=== PATIENT | male | born 1940 | race Caucasian/White ===

== ENCOUNTER 2016-05-07 17:00 | Inpatient (IN) | payer OTHER ==
[~2016-05-07] VITALS: Ht 193 cm; Wt 85.2 kg
[~2016-05-07 17:00] MED LIST: ASPI325T45 PO; LEVO75TA5 PO; LNX25 PO; WARF-246 PO
[2016-05-07] MEDS ORDERED: SODIUM CHLORIDE 0.9% 1000ML 1,000 ML IV SCH (17:16)
[2016-05-07 17:29] LABS: BASO % 0.7 %; BASO ABS # 0.03 K/uL (0-0.2); COMPLETE YES; EOS % 2.6 %; HEMATOCRIT 39.6 % (42-52); IG% 0.2 %; LYMPH % 38.1 %; LYMPH ABS # 1.64 K/uL (1.2-3.4); MEAN CELL VOLUME 92.1 fL (80-100); MEAN CORPUSCULAR HEMOGLOBIN 32.1 pg (25-34); MEAN CORPUSCULAR HGB CONC 34.8 g/dl (32-36); MEAN PLATELET VOLUME 9.3 fL (7.4-10.4); MONO % 10.2 %; NEUT % 48.2 %; PLATELET COUNT 195 K/uL (130-400); WHITE BLOOD COUNT 4.31 K/uL (4.8-10.8)
--- NOTE | 2016-05-07 17:34 | EMERGENCY ROOM VISIT NOTE ---
History Report prepared by Gerhard: Maria C Gabriel Under the Supervision of: Dr. Hayden Whitley M.D. First contact with patient: 17:16 Chief Complaint: NEURO SYMPTOMS Stated Complaint: DIFFICULTY TAKING/MAKING SENSE- HX TIA, AFIB History of Present Illness The patient is a 75 year old male who presents to the Emergency Room with complaints of constant neurological symptoms beginning a half an hour ago. The patient states that he was having trouble making sense of words. His reports that it was difficult for him to form sentences and he was having a hard time speaking. Per nursing staff the patient has a history of A-fib and is on Coumadin. The patient reports that he feels as though he is getting better. He complains of a left sided headache that began a half an hour ago and confusion. The patient notes that he is under a lot of stress and is not sure if that has contributed to this today. He reports a history of TIA's and experienced similar symptoms to today. Source of History: patient Onset: 30 minutes ago Position: other (global) Quality: other (confusion) Timing: constant Associated Symptoms: + headache Note: Notes trouble forming sentences. Review of Systems See HPI for pertinent positives & negatives. A total of 10 systems reviewed and were otherwise negative. Past Medical & Surgical Medical Problems: (1) Atrial fibrillation (2) BPH (3) Hiatal hernia (4) Hypothyroidism Surgical Problems: (1) History of bilateral knee replacement Family History Hypertension Social History Smoking Status: Never Smoker Alcohol Use: occasionally Marital Status: Occupation Status: retired Current/Historical Medications Scheduled Aspirin (Aspirin), 1 DOSE PO UD Digoxin (Digoxin), 0.25 MG PO HS Levothyroxine Sodium (Levothyroxine Sodium), 75 MCG PO QAM Warfarin Sod (Jantoven), 5 MG PO DIRECTED Warfarin Sodium (Warfarin Sodium), 10 MG PO DAILY Allergies Coded Allergies: No Known Allergies (Unverified , 05/07/16) Physical Exam Vital Signs Date Time Temp Pulse Resp B/P Pulse Ox O2 Delivery O2 Flow Rate FiO2 05/07/16 20:03 73 16 177/113 97 Room Air 05/07/16 18:13 71 16 187/117 97 Room Air 05/07/16 17:28 Room Air 05/07/16 17:04 36.6 78 20 196/104 98 Room Air Physical Exam GENERAL: Patient is a healthy-appearing well-nourished HEAD: Normocephalic atraumatic EYES: Ocular movements intact pupils equal and react to light OROPHARYNX mucous membranes are moist no exudates present no erythema or edema present NECK: Supple no nuchal rigidity CHEST: Good equal expansion LUNGS: Clear and equal to auscultation CARDIAC: Normal S1 and S2 ABDOMEN: Soft nontender no guarding BACK: No CVA tenderness EXTREMITIES: No pain upon palpation normal muscle strength in all groups no clubbing cyanosis or edema NEURO: Patient is following commands is answering questions appropriately. Alert and oriented x3 Cranial Nerves 2-12 grossly intact Medical Decision & Procedures ER Provider Diagnostic Interpretation: Radiology results as stated below per my review and radiologist interpretation: CT HEAD WITHOUT CONTRAST (CT) FINDINGS: No intra or extra-axial mass lesions are visualized. There is no CT evidence of acute cortical infarction. There is no evidence of midline shift. There is no acute hemorrhage. No calvarial fractures are visualized. There are patchy white matter hypodensities likely on a small vessel basis. There is no evidence of pathologic ventricular dilatation. There is no evidence of acute sinusitis IMPRESSION: No acute intracranial findings Electronically signed by: Arnav Arevalo M.D. 05/07/2016 5:42 PM Dictated Date/Time: 05/07/2016 5:40 PM CHEST ONE VIEW PORTABLE FINDINGS: The heart is borderline enlarged. There is no failure. There is no focal pulmonary consolidation. There are no pleural effusions.[ IMPRESSION: No active disease in the chest. Electronically signed by: Arnav Arevalo M.D. 05/07/2016 5:58 PM Dictated Date/Time: 05/07/2016 5:57 PM Laboratory Results 05/07/16 17:20 Red Blood Count 4.30, Mean Corpuscular Volume 92.1, Mean Corpuscular Hemoglobin 32.1, Mean Corpuscular Hemoglobin Concent 34.8, Mean Platelet Volume 9.3, Neutrophils (%) (Auto) 48.2, Lymphocytes (%) (Auto) 38.1, Monocytes (%) (Auto) 10.2, Eosinophils (%) (Auto) 2.6, Basophils (%) (Auto) 0.7, Neutrophils # (Auto ) 2.08, Lymphocytes # (Auto) 1.64, Monocytes # (Auto) 0.44, Eosinophils # (Auto ) 0.11, Basophils # (Auto) 0.03 05/07/16 17:20 Test 05/07/16 17:20 05/07/16 17:27 05/07/16 17:29 05/07/16 18:15 White Blood Count 4.31 K/uL (4.8-10.8) Red Blood Count 4.30 M/uL (4.7-6.1) Hemoglobin 13.8 g/dL (14.0-18.0) Hematocrit 39.6 % (42-52) Mean Corpuscular Volume 92.1 fL (80-100) Mean Corpuscular Hemoglobin 32.1 pg (25-34) Mean Corpuscular Hemoglobin Concent 34.8 g/dl (32-36) Platelet Count 195 K/uL (130-400) Mean Platelet Volume 9.3 fL (7.4-10.4) Neutrophils (%) (Auto) 48.2 % Lymphocytes (%) (Auto) 38.1 % Monocytes (%) (Auto) 10.2 % Eosinophils (%) (Auto) 2.6 % Basophils (%) (Auto) 0.7 % Neutrophils # (Auto) 2.08 K/uL (1.4-6.5) Lymphocytes # (Auto) 1.64 K/uL (1.2-3.4) Monocytes # (Auto) 0.44 K/uL (0.11-0.59) Eosinophils # (Auto) 0.11 K/uL (0-0.5) Basophils # (Auto) 0.03 K/uL (0-0.2) RDW Standard Deviation 43.2 fL (36.4-46.3) RDW Coefficient of Variation 12.9 % (11.5-14.5) Immature Granulocyte % (Auto) 0.2 % Immature Granulocyte # (Auto) 0.01 K/uL (0.00-0.02) Prothrombin Time 13.7 SECONDS (9.0-12.0) Prothromb Time International Ratio 1.3 (0.9-1.1) Activated Partial Thromboplast Time 29.0 SECONDS (21.0-31.0) Partial Thromboplastin Ratio 1.1 Anion Gap 3.0 mmol/L (3-11) Est Creatinine Clear Calc Drug Dose 59.3 ml/min Estimated GFR () 61.4 Estimated GFR (Non- 53.0 BUN/Creatinine Ratio 11.9 (10-20) Calcium Level 8.6 mg/dl (8.5-10.1) Total Creatine Kinase 284 U/L (39-308) Creatine Kinase MB 2.3 ng/ml (0.5-3.6) Creatine Kinase MB Ratio 0.8 (0-3.0) Troponin I < 0.015 ng/ml (0-0.045) Digoxin Level 0.4 ng/ml (0.8-2.0) Bedside Glucose 117 mg/dl (70-99) Bedside Prothrombin Time INR 1.4 (0.9-1.1) Urine Color YELLOW Urine Appearance CLEAR (CLEAR) Urine pH 7.0 (4.5-7.5) Urine Specific [place] 1.006 (1.000-1.030) Urine Protein NEG (NEG) Urine Glucose (UA) NEG (NEG) Urine Ketones NEG (NEG) Urine Occult Blood NEG (NEG) Urine Nitrite NEG (NEG) Urine Bilirubin NEG (NEG) Urine Urobilinogen NEG (NEG) Urine Leukocyte Esterase NEG (NEG) Urine Opiates Screen NEG (NEG) Urine Methadone, Qualitative NEG (NEG) Urine Barbiturates NEG (NEG) Urine Phencyclidine (PCP) Level NEG (NEG) Ur Amphetamine/Methamphetamine NEG (NEG) MDMA (Ecstasy) Screen NEG (NEG) Urine Benzodiazepines Screen NEG (NEG) Urine Cocaine Metabolite NEG (NEG) Urine Marijuana (THC) NEG (NEG) Labs reviewed by ED physician. Medications Administered Medications (Trade) Dose Ordered Sig/Jimmy Route Start Time Stop Time Status Last Admin Dose Admin Sodium Chloride (Nss 1000ml) 1,000 ml @ 50 mls/hr Q20H IV 05/07/16 17:16 05/07/16 21:20 DC 05/07/16 18:15 50 MLS/HR ECG Indication: altered mental status Rate (beats per minute): 76 Rhythm: atrial fibrillation Findings: nonspecific-ST abn (Anterior), no acute ischemic change ED Course 1715: Past medical records reviewed. The patient was evaluated in room A2. A complete history and physical examination was performed. 6: Sodium Chloride 1000 ml @ 50 mls/hr IV. 1906: I discussed the patient's case with Dr. Gonzalez, he has agreed to evaluate the patient for further management and care. 1918: Upon reexamination the patient is hemodynamically stable. I discussed results and treatment plan with the patient. He verbalizes agreement and understanding. I spoke with Dr. Gonzalez from the [facility] Hospitalist Service. The patient will be evaluated for further management. Medical Decision Differential diagnosis: Etiologies such as metabolic, infection, hypo/hyperglycemia, electrolyte abnormalities, cardiac sources, intracerebral event, toxicologic, neurologic, as well as others were entertained. This is a 75-year-old male who presents emergency department complaining of TIA like symptoms. The symptoms began approximately 3 hours ago however upon arrival to the emergency department the patient is now symptom-free. His INR is subtherapeutic at 1.3. CAT scan of the head is normal he has a normal CBC normal renal profile. I did discuss case with the hospitalist service who agreed to admit the patient. Patient was in agreement with the treatment plan. Consults Time Called: 1849 Consulting Physician: Dr. Gonzalez - Kostas Returned Call: 1906 I discussed the patient's case with Dr. Gonzalez, he has agreed to evaluate the patient for further management and care. Impression Primary Impression: TIA (transient ischemic attack) Scribe Attestation The scribe's documentation has been prepared under my direction and personally reviewed by me in its entirety. I confirm that the note above accurately reflects all work, treatment, procedures, and medical decision making performed by me. Departure Information Dispostion Being Evaluated By Hospitalist Referrals Vinnie Chand D.O. (PCP) Patient Instructions [facility] Stroke History Time Last Known Well 1500 Stroke t-PA Criteria Reviewed Does NOT meet criteria for t-PA Reason t-PA Not Given Treatment not indicated Strict Exclusion Criteria novel oral anticoagulant use (within last 2 days), Complete resolution of symptoms (NI, Normal neurologic examination Extended Window (3-4.5 hour) Any anticoagulant use Problem Qualifiers Primary Impression: TIA (transient ischemic attack) Transient cerebral ischemia type: unspecified Qualified Codes: G45.9 - Transient cerebral ischemic attack, unspecified
[2016-05-07 17:38] LABS: INR 1.3 (0.9-1.1); PARTIAL THROMBOPLASTIN RATIO 1.1; PROTHROMBIN TIME (PATIENT) 13.7 SECONDS (9.0-12.0)
--- NOTE | 2016-05-07 17:43 | DIAGNOSTIC IMAGING REPORT ---
CT HEAD WITHOUT CONTRAST (CT) CLINICAL HISTORY: Stroke RESECTED AND EXPRESSIVE APHASIA COMPARISON STUDY: 05/10/2013 TECHNIQUE: Axial CT of the brain is performed from the vertex to the skull base. IV contrast was not administered for this examination. CT DOSE: 614.27 mGy.cm FINDINGS: No intra or extra-axial mass lesions are visualized. There is no CT evidence of acute cortical infarction. There is no evidence of midline shift. There is no acute hemorrhage. No calvarial fractures are visualized. There are patchy white matter hypodensities likely on a small vessel basis. There is no evidence of pathologic ventricular dilatation. There is no evidence of acute sinusitis IMPRESSION: No acute intracranial findings Electronically signed by: Arnav Arevalo M.D. 05/07/2016 5:42 PM Dictated Date/Time: 05/07/2016 5:40 PM
[2016-05-07 17:54] LABS: BLOOD UREA NITROGEN 15 mg/dl (7-18); BUN/CREATININE RATIO 11.9 (10-20); CALCIUM 8.6 mg/dl (8.5-10.1); CARBON DIOXIDE 32 mmol/L (21-32); CHLORIDE 104 mmol/L (98-107); GLUCOSE 99 mg/dl (70-99); POTASSIUM 3.6 mmol/L (3.5-5.1); SODIUM 139 mmol/L (136-145)
[2016-05-07 17:59] LABS: CKMB/CK RATIO 0.8 (0-3.0)
--- NOTE | 2016-05-07 17:59 | DIAGNOSTIC IMAGING REPORT ---
CHEST ONE VIEW PORTABLE CLINICAL HISTORY: Stroke CONFUSION COMPARISON STUDY: 05/10/2013 FINDINGS: The heart is borderline enlarged. There is no failure. There is no focal pulmonary consolidation. There are no pleural effusions.[ IMPRESSION: No active disease in the chest. Electronically signed by: Arnav Arevalo M.D. 05/07/2016 5:58 PM Dictated Date/Time: 05/07/2016 5:57 PM
[2016-05-07] MEDS ORDERED: WARF5TAB7 PO (18:09)
[2016-05-07 18:28] LABS: URINE APPEARANCE CLEAR (CLEAR); URINE BILIRUBIN NEG (NEG); URINE COLOR YELLOW; URINE NITRITE NEG (NEG); URINE SPECIFIC GRAVITY 1.006 (1.000-1.030); UROBILINOGEN NEG (NEG); ZZUR CULT IF INDIC CLEAN CATCH NO
[2016-05-07 18:29] LABS: MANUAL MICROSCOPIC REQUIRED? NO; REVIEW REQ? NO
[2016-05-07 18:58] LABS: BENZODIAZEPINE, URINE NEG (NEG); COCAINE,URINE NEG (NEG); PHENCYCLIDINE, URINE NEG (NEG)
[2016-05-07] MEDS ORDERED: PHARMACIST DISCHARGE MED REC CONSULT PRN (20:45)
[2016-05-07] MEDS ORDERED: ACETAMINOPHEN 325 MG TAB PO PRN (20:45)
[2016-05-07] MEDS ORDERED: ONDANSETRON INJ 2 MG/ML 2 ML VIAL IV PRN (20:45)
[2016-05-07] MEDS ORDERED: DIGOXIN 0.25 MG TAB PO SCH (21:00)
--- NOTE | 2016-05-07 21:01 | History and Physical ---
History & Physical Date & Time of Service: May 07, 2016 at 21:00 Chief Complaint: Difficulty Taking/Making Sense- Hx Tia, Afib Primary Care Physician: Vinnie Chand D.OJonathan History of Present Illness Source: patient Past Medical/Surgical History Medical Problems: (1) Atrial fibrillation Status: Chronic (2) BPH Status: Chronic (3) Hiatal hernia Status: Chronic (4) Hypothyroidism Status: Chronic Surgical Problems: (1) History of bilateral knee replacement Status: Chronic Family History Hypertension Social History Smoking Status: Never Smoker Marital Status: Occupational Status: retired Immunizations History of Influenza Vaccine: N/A History of Tetanus Vaccine?: Unknown History of Pneumococcal: No History of Hepatitis B Vaccine: No Multi-Drug Resistant Organisms History of MDRO: No Allergies Coded Allergies: No Known Allergies (Unverified , 05/07/16) Home Medications Scheduled Aspirin (Aspirin), 1 DOSE PO UD Digoxin (Digoxin), 0.25 MG PO HS Levothyroxine Sodium (Levothyroxine Sodium), 75 MCG PO QAM Warfarin Sod (Jantoven), 5 MG PO DIRECTED Warfarin Sodium (Warfarin Sodium), 10 MG PO DAILY Physical Exam Vital Signs Date Time Temp Pulse Resp B/P Pulse Ox O2 Delivery O2 Flow Rate FiO2 05/07/16 20:03 73 16 177/113 97 Room Air 05/07/16 18:13 71 16 187/117 97 Room Air 05/07/16 17:28 Room Air 05/07/16 17:04 36.6 78 20 196/104 98 Room Air Diagnostics Laboratory Results Results Past 24 Hours Test 05/07/16 17:20 05/07/16 17:27 05/07/16 17:29 05/07/16 18:15 Range/Units White Blood Count 4.31 4.8-10.8 K/uL Red Blood Count 4.30 4.7-6.1 M/uL Hemoglobin 13.8 14.0-18.0 g/dL Hematocrit 39.6 42-52 % Mean Corpuscular Volume 92.1 80-100 fL Mean Corpuscular Hemoglobin 32.1 25-34 pg Mean Corpuscular Hemoglobin Concent 34.8 32-36 g/dl Platelet Count 195 130-400 K/uL Mean Platelet Volume 9.3 7.4-10.4 fL Neutrophils (%) (Auto) 48.2 % Lymphocytes (%) (Auto) 38.1 % Monocytes (%) (Auto) 10.2 % Eosinophils (%) (Auto) 2.6 % Basophils (%) (Auto) 0.7 % Neutrophils # (Auto) 2.08 1.4-6.5 K/uL Lymphocytes # (Auto) 1.64 1.2-3.4 K/uL Monocytes # (Auto) 0.44 0.11-0.59 K/uL Eosinophils # (Auto) 0.11 0-0.5 K/uL Basophils # (Auto) 0.03 0-0.2 K/uL RDW Standard Deviation 43.2 36.4-46.3 fL RDW Coefficient of Variation 12.9 11.5-14.5 % Immature Granulocyte % (Auto) 0.2 % Immature Granulocyte # (Auto) 0.01 0.00-0.02 K/uL Prothrombin Time 13.7 9.0-12.0 SECONDS Prothromb Time International Ratio 1.3 0.9-1.1 Activated Partial Thromboplast Time 29.0 21.0-31.0 SECONDS Partial Thromboplastin Ratio 1.1 Sodium Level 139 136-145 mmol/L Potassium Level 3.6 3.5-5.1 mmol/L Chloride Level 104 98-107 mmol/L Carbon Dioxide Level 32 21-32 mmol/L Anion Gap 3.0 3-11 mmol/L Blood Urea Nitrogen 15 7-18 mg/dl Creatinine 1.30 0.60-1.40 mg/dl Est Creatinine Clear Calc Drug Dose 59.3 ml/min Estimated GFR () 61.4 Estimated GFR (Non- 53.0 BUN/Creatinine Ratio 11.9 10-20 Random Glucose 99 70-99 mg/dl Calcium Level 8.6 8.5-10.1 mg/dl Total Creatine Kinase 284 39-308 U/L Creatine Kinase MB 2.3 0.5-3.6 ng/ml Creatine Kinase MB Ratio 0.8 0-3.0 Troponin I < 0.015 0-0.045 ng/ml Digoxin Level 0.4 0.8-2.0 ng/ml Bedside Glucose 117 70-99 mg/dl Bedside Prothrombin Time INR 1.4 0.9-1.1 Urine Color YELLOW Urine Appearance CLEAR CLEAR Urine pH 7.0 4.5-7.5 Urine Specific [place] 1.006 1.000-1.030 Urine Protein NEG NEG Urine Glucose (UA) NEG NEG Urine Ketones NEG NEG Urine Occult Blood NEG NEG Urine Nitrite NEG NEG Urine Bilirubin NEG NEG Urine Urobilinogen NEG NEG Urine Leukocyte Esterase NEG NEG Urine Opiates Screen NEG NEG Urine Methadone, Qualitative NEG NEG Urine Barbiturates NEG NEG Urine Phencyclidine (PCP) Level NEG NEG Ur Amphetamine/Methamphetamine NEG NEG MDMA (Ecstasy) Screen NEG NEG Urine Benzodiazepines Screen NEG NEG Urine Cocaine Metabolite NEG NEG Urine Marijuana (THC) NEG NEG Impression VTE Prophylaxis VTE Risk Assessment Done? Y/N: Yes Risk Level: Moderate
[2016-05-07] MEDS ORDERED: ASPIRIN 81 MG ECTAB PO STA ×2 (21:08→21:16)
--- NOTE | 2016-05-07 21:19 | History and Physical ---
History & Physical Date & Time of Service: May 07, 2016 at 21:02 Chief Complaint: Difficulty Taking/Making Sense- Hx Tia, Afib Primary Care Physician: Vinnie Chand D.OJonathan History of Present Illness Source: patient, clinic records, hospital records 75 year old male with history of Atrial Fibrillation on Coumadin, TIAs, presenting with episodes of aphasia. Follows with Dr. Chand for Primary Care Physician. Patient was in his usual state of health until around 3pm, while having lunch, patient noted that he was having difficulty understanding his emails. He managed to drive to his significant other and she noticed that the patient was having difficulty forming words and to some degree, understanding. After about 30 minutes, the symptoms resolved spontaneously. Towards the evening, the patient was in a [employer] store when he again experienced the same symptoms. He managed to call his significant other again who picked him up and brought him to the ER. By the time they arrrived at the ER, symptoms have resolved. Patient reports left sided headache this afternoon as well. At the ER, patient received hypertensive with systolic bp 190s. CT head: no acute process EKG: A fib , rate controlled INR 1.3 On exam, patient was alert, pleasant, oriented x 3. States he feels back to baseline, significant other agrees he is back to baseline. Denies any focal neuro symptoms, chest pain, dyspnea, dizziness, nausea. No other symptoms. Past Medical/Surgical History Medical Problems: (1) Atrial fibrillation Status: Chronic (2) BPH Status: Chronic (3) Hiatal hernia Status: Chronic (4) Hypothyroidism Status: Chronic Surgical Problems: (1) History of bilateral knee replacement Status: Chronic Family History Hypertension Social History Smoking Status: Never Smoker Smokeless Tobacco Use: No Alcohol Use: socially Drug Use: none Marital Status: Occupational Status: retired Immunizations History of Influenza Vaccine: N/A History of Tetanus Vaccine?: Unknown History of Pneumococcal: No History of Hepatitis B Vaccine: No Multi-Drug Resistant Organisms History of MDRO: No Allergies Coded Allergies: No Known Allergies (Unverified , 05/07/16) Home Medications Scheduled Aspirin (Aspirin), 1 DOSE PO UD Digoxin (Digoxin), 0.25 MG PO HS Levothyroxine Sodium (Levothyroxine Sodium), 75 MCG PO QAM Warfarin Sod (Jantoven), 5 MG PO DIRECTED Warfarin Sodium (Warfarin Sodium), 10 MG PO DAILY Review of Systems Constitutional- no fever; no weight loss Eyes- no acute visual changes ENT- no sinus drainage; no pharyngitis Pulmonary- no cough, no wheezing, no shortness of breath Cardiac- no chest pain, no palpitations, no orthopnea, no dependent edema GI- no nausea, no vomiting, no diarrhea, no melena, no hematochezia - no dysuria, no hematuria Musculoskeletal- no arthralgias, no myalgias Derm- no rashes, no new skin lesions, no changing skin lesions Hematologic- no unusual bruising, no unusual bleeding Lymphatics- no adenopathy Endocrine- no polyuria or polydipsia; no heat or cold intolerance Neuro- (+) as noted above Psych- no anxiety, no depression Physical Exam Vital Signs Date Time Temp Pulse Resp B/P Pulse Ox O2 Delivery O2 Flow Rate FiO2 05/07/16 20:03 73 16 177/113 97 Room Air 05/07/16 18:13 71 16 187/117 97 Room Air 05/07/16 17:28 Room Air 05/07/16 17:04 36.6 78 20 196/104 98 Room Air General Appearance: WD/WN, no apparent distress Head: normocephalic, atraumatic Eyes: normal inspection, PERRL, EOMI, sclerae normal ENT: normal ENT inspection, hearing grossly normal, pharynx normal Neck: supple, no adenopathy, thyroid normal, no JVD Respiratory/Chest: chest non-tender, lungs clear, normal breath sounds, no respiratory distress, no accessory muscle use Cardiovascular: regular rate, rhythm, no edema, no JVD, no murmur Abdomen/GI: normal bowel sounds, non tender, soft, no organomegaly Back: normal inspection, no CVA tenderness Extremities/Musculoskelatal: normal inspection, no calf tenderness, no pedal edema, normal range of motion Neurologic/Psych: financial services specialist II-XII nml as tested, no motor/sensory deficits, alert, normal mood/affect, normal reflexes, oriented x 3 Skin: normal color, warm/dry, no rash Lymphatic: no adenopathy Diagnostics Laboratory Results Results Past 24 Hours Test 05/07/16 17:20 05/07/16 17:27 05/07/16 17:29 05/07/16 18:15 Range/Units White Blood Count 4.31 4.8-10.8 K/uL Red Blood Count 4.30 4.7-6.1 M/uL Hemoglobin 13.8 14.0-18.0 g/dL Hematocrit 39.6 42-52 % Mean Corpuscular Volume 92.1 80-100 fL Mean Corpuscular Hemoglobin 32.1 25-34 pg Mean Corpuscular Hemoglobin Concent 34.8 32-36 g/dl Platelet Count 195 130-400 K/uL Mean Platelet Volume 9.3 7.4-10.4 fL Neutrophils (%) (Auto) 48.2 % Lymphocytes (%) (Auto) 38.1 % Monocytes (%) (Auto) 10.2 % Eosinophils (%) (Auto) 2.6 % Basophils (%) (Auto) 0.7 % Neutrophils # (Auto) 2.08 1.4-6.5 K/uL Lymphocytes # (Auto) 1.64 1.2-3.4 K/uL Monocytes # (Auto) 0.44 0.11-0.59 K/uL Eosinophils # (Auto) 0.11 0-0.5 K/uL Basophils # (Auto) 0.03 0-0.2 K/uL RDW Standard Deviation 43.2 36.4-46.3 fL RDW Coefficient of Variation 12.9 11.5-14.5 % Immature Granulocyte % (Auto) 0.2 % Immature Granulocyte # (Auto) 0.01 0.00-0.02 K/uL Prothrombin Time 13.7 9.0-12.0 SECONDS Prothromb Time International Ratio 1.3 0.9-1.1 Activated Partial Thromboplast Time 29.0 21.0-31.0 SECONDS Partial Thromboplastin Ratio 1.1 Sodium Level 139 136-145 mmol/L Potassium Level 3.6 3.5-5.1 mmol/L Chloride Level 104 98-107 mmol/L Carbon Dioxide Level 32 21-32 mmol/L Anion Gap 3.0 3-11 mmol/L Blood Urea Nitrogen 15 7-18 mg/dl Creatinine 1.30 0.60-1.40 mg/dl Est Creatinine Clear Calc Drug Dose 59.3 ml/min Estimated GFR () 61.4 Estimated GFR (Non- 53.0 BUN/Creatinine Ratio 11.9 10-20 Random Glucose 99 70-99 mg/dl Calcium Level 8.6 8.5-10.1 mg/dl Total Creatine Kinase 284 39-308 U/L Creatine Kinase MB 2.3 0.5-3.6 ng/ml Creatine Kinase MB Ratio 0.8 0-3.0 Troponin I < 0.015 0-0.045 ng/ml Digoxin Level 0.4 0.8-2.0 ng/ml Bedside Glucose 117 70-99 mg/dl Bedside Prothrombin Time INR 1.4 0.9-1.1 Urine Color YELLOW Urine Appearance CLEAR CLEAR Urine pH 7.0 4.5-7.5 Urine Specific [place] 1.006 1.000-1.030 Urine Protein NEG NEG Urine Glucose (UA) NEG NEG Urine Ketones NEG NEG Urine Occult Blood NEG NEG Urine Nitrite NEG NEG Urine Bilirubin NEG NEG Urine Urobilinogen NEG NEG Urine Leukocyte Esterase NEG NEG Urine Opiates Screen NEG NEG Urine Methadone, Qualitative NEG NEG Urine Barbiturates NEG NEG Urine Phencyclidine (PCP) Level NEG NEG Ur Amphetamine/Methamphetamine NEG NEG MDMA (Ecstasy) Screen NEG NEG Urine Benzodiazepines Screen NEG NEG Urine Cocaine Metabolite NEG NEG Urine Marijuana (THC) NEG NEG Diagnostic Radiology CT HEAD WITHOUT CONTRAST (CT) CLINICAL HISTORY: Stroke RESECTED AND EXPRESSIVE APHASIA COMPARISON STUDY: 05/10/2013 TECHNIQUE: Axial CT of the brain is performed from the vertex to the skull base. IV contrast was not administered for this examination. CT DOSE: 614.27 mGy.cm FINDINGS: No intra or extra-axial mass lesions are visualized. There is no CT evidence of acute cortical infarction. There is no evidence of midline shift. There is no acute hemorrhage. No calvarial fractures are visualized. There are patchy white matter hypodensities likely on a small vessel basis. There is no evidence of pathologic ventricular dilatation. There is no evidence of acute sinusitis IMPRESSION: No acute intracranial findings EKG a fib rate controlled Impression Assessment and Plan 75 year old male with history of Atrial Fibrillation on Coumadin, TIAs, presenting with episodes of aphasia today. POSSIBLE TIA R/O ACUTE CVA - chronic a fib on coumadin INR1.3 today - symptoms have resolved CT head: negative - Brain MRI CT angio Head and Neck Echo - increase Aspirin to 162mg daily for now patient took total of 10mg Coumadin today - check INR tomorrow usually takes coumadin 5mg tues and fri, 10mg other days may need statin on discharge - discussed above plan with Dr. Huntley HYPERTENSIVE URGENCY - maintain bp on the higher side for now - Clonidine PRN for systolic bp > 180 CHRONIC A FIB ON COUMADIN HISTORY OF TIA'S - continue Digoxin - management of coumadin per #1 HYPOTHYROIDISM check TSH continue lthyroxine DVT PROPHYLAXIS on coumadin Full code per patient Disposition pending anticipate discharge home when cleared by Neurology VTE Prophylaxis VTE Risk Assessment Done? Y/N: Yes Risk Level: Moderate
[2016-05-07] MEDS ORDERED: ASPIRIN 81 MG ECTAB PO ONE (21:28)
[2016-05-07] MEDS ORDERED: CLONIDINE HCL 0.1 MG TAB PO PRN (21:30)
[2016-05-07] MEDS ORDERED: OPTIRAY 320 IV PRN (21:45)
--- NOTE | 2016-05-07 21:49 | DIAGNOSTIC IMAGING REPORT ---
CT NECK ANGIO WITH CONTRAST CLINICAL HISTORY: A fascia. Suspected stroke. COMPARISON STUDY: Carotid Doppler ultrasound dated 05/11/2013 TECHNIQUE: CT angiography was performed from the aortic arch to the skull base. MIP imaging was performed. The patient was scanned in a dynamic helical fashion during intravenous administration of 115 cc of Optiray 320. CT DOSE: 585.52 mGy.cm Technique: CT angiogram of the carotid and vertebral arteries was obtained using intravenous contrast and 3-D reconstruction. NASCET criteria was utilized. Findings: There is a 6 mm pleural-based left apical opacity with associated bronchiectatic change. This remain similar to April 2012 and is likely postinflammatory. Biapical pleural-parenchymal scarring is also evident. The right carotid revealed no evidence of aneurysm and no evidence of dissection. There is no evidence of hemodynamic significant stenosis. The left carotid revealed no evidence of hemodynamic significant stenosis. There is no evidence of aneurysm. There is no evidence of dissection. There is no evidence of hemodynamically significant vertebral stenosis. There is no evidence of vertebral dissection. The left vertebral is dominant. IMPRESSION: No evidence of hemodynamically significant carotid or vertebral artery stenosis. No evidence of dissection. Electronically signed by: Arnav Arevalo M.D. 05/07/2016 9:47 PM Dictated Date/Time: 05/07/2016 9:43 PM
--- NOTE | 2016-05-07 21:54 | DIAGNOSTIC IMAGING REPORT ---
CT HEAD ANGIO WITH CONTRAST CLINICAL HISTORY: Aphasia. Suspected stroke TECHNIQUE: CT angiography of the head was performed in a dynamic helical fashion during intravenous administration of 115 cc of Optiray 320. MIP imaging was performed CT DOSE: COMPARISON STUDY: Noncontrast head CT dated 05/07/2016 FINDINGS: There are no lesion suspicious for aneurysm. There are no major intracranial branch occlusions. The dural venous sinuses appear patent. IMPRESSION: Unremarkable CT angiography of the brain Electronically signed by: Arnav Arevalo M.D. 05/07/2016 9:52 PM Dictated Date/Time: 05/07/2016 9:49 PM
--- NOTE | 2016-05-07 22:18 | DIAGNOSTIC IMAGING REPORT ---
MRI OF THE BRAIN WITHOUT CONTRAST CLINICAL HISTORY: Difficulty talking. Atrial fibrillation. TIA. COMPARISON STUDY: Head CT dated 05/07/2016 FINDINGS: Sagittal T1, axial diffusion, proton density and T2 weighted axial, coronal FLAIR, and axial T1-weighted images were acquired. No intra or extra-axial mass lesions are visualized Axial diffusion-weighted images reveal no evidence of acute or subacute infarction. There is no evidence of ventricular dilatation. Proton density T2-weighted and FLAIR images reveal scattered foci of increased T2 signal within the white matter, likely on a small vessel basis. There are no abnormal flow voids. IMPRESSION: 1. No acute intracranial findings 2. No evidence of acute or subacute infarction 3. No evidence of intracranial mass on this noncontrast study Electronically signed by: Arnav Arevalo M.D. 05/07/2016 10:17 PM Dictated Date/Time: 05/07/2016 10:15 PM
[2016-05-07] MEDS: SODIUM CHLORIDE 0.9% 1000ML 1,000 ML IV SCH (22:32)
[2016-05-07 22:36] VITALS: BP 159/63; PULSE 66; TEMP 37.1; O2SAT 96; Ht 193 cm; Wt 85.2 kg
[2016-05-07 23:04] VITALS: BP 158/85; PULSE 64; TEMP 36.3; O2SAT 96
[2016-05-08 03:45] VITALS: BP 126/77; PULSE 69; TEMP 36.4; O2SAT 95
[2016-05-08 04:00] VITALS: O2SAT 95
[2016-05-08] MEDS ORDERED: LEVOTHYROXINE 75 MCG TAB PO SCH (06:00)
[2016-05-08 06:13] LABS: BASO % 0.6 %; BASO ABS # 0.03 K/uL (0-0.2); COMPLETE YES; EOS % 1.9 %; HEMATOCRIT 35.8 % (42-52); LYMPH % 44.6 %; LYMPH ABS # 2.06 K/uL (1.2-3.4); MEAN CORPUSCULAR HEMOGLOBIN 31.9 pg (25-34); MEAN CORPUSCULAR HGB CONC 34.6 g/dl (32-36); MEAN PLATELET VOLUME 10.2 fL (7.4-10.4); MONO % 9.5 %; NEUT % 43.4 %; PLATELET COUNT 190 K/uL (130-400); RED BLOOD COUNT 3.89 M/uL (4.7-6.1); WHITE BLOOD COUNT 4.62 K/uL (4.8-10.8)
[2016-05-08 06:27] LABS: INR 1.3 (0.9-1.1); PROTHROMBIN TIME (PATIENT) 14.2 SECONDS (9.0-12.0)
[2016-05-08 06:55] LABS: BUN/CREATININE RATIO 14.3 (10-20); CALCIUM 8.3 mg/dl (8.5-10.1); CREATININE 0.98 mg/dl (0.60-1.40); POTASSIUM 3.8 mmol/L (3.5-5.1)
[2016-05-08 07:00] VITALS: BP 120/66; PULSE 72; TEMP 36.8; O2SAT 96
[2016-05-08 07:08] LABS: CHOLESTEROL/HDL RATIO 3.8; THYROID STIMULATING HORMONE 3.42 uIu/ml (0.300-4.500)
[2016-05-08 07:26] LABS: ESTIMATED AVERAGE GLUCOSE 114 mg/dl; HA1C FLAG Normal (Normal)
[2016-05-08] MEDS ORDERED: ASPIRIN 81 MG ECTAB PO SCH (09:00)
[2016-05-08] MEDS ORDERED: HEPARIN SOD 5000 UNIT/0.5 ML CARP SQ ONE (09:30)
[2016-05-08 11:37] VITALS: BP 118/69; PULSE 76; TEMP 36.8; O2SAT 95
--- NOTE | 2016-05-08 12:52 | CONSULTATION REPORT ---
DATE OF CONSULTATION: 05/08/[address] Gonzalez. CONSULTING PHYSICIAN: Liat Garcia DO HISTORY OF PRESENT ILLNESS: Landon is 75 years old and is a retired education psychologist, resides in [place] and has longstanding atrial fibrillation which is now chronic, rather than paroxysmal, according to what he tells me. He has been on Coumadin for a number of years and recently his INR fell. He admitted that he had been in [place], [place] for about a month and had not followed up with the Coumadin Clinic. When he returned, his INR was down to 1.3. He was instructed to take some extra Coumadin, did so, but had 2 events of transient speech impediment with dyslexia, occurring first while eating lunch in [place] and the second time about an hour after the first while he was in the [place] post office. The first event cleared in 15 minutes. The second event lasted about the same period of time. There was no headache, no visual disturbances, no numbness, tingling, weakness or much problem with articulation other than the fact that he had trouble finding the words and apparently his speech was slow and deliberate. He brought himself to the Emergency Room, was assessed, Dr. Gonzalez called me about the case. His INR was low at 1.3. He had taken an additional Coumadin 5 mg tablet, thinking that he needed to do so, but did not take any extra aspirin. I suggested Dr. Gonzalez get an MRI of the brain to make sure he has not had an acute infarct or series of embolic events that were subclinical and also suggested a CTA of the cervical vessels and the intracranial vessels to be sure we were not dealing with an unrelated focal intracranial stenosis or carotid artery stenosis/occlusion. These tests have subsequently been negative. The patient is back to baseline. He would like to go home, but unfortunately his INR as of 4 this morning was still down at 1.3 and he is at risk for having more events. He was placed on some heparin, but is not on it chronically at this point and his aspirin dose was doubled for a period of time, but now is going to be back to his baseline. Other problems include BPH, hiatal hernia, hypothyroidism and bilateral knee replacements for degenerative arthritis. He also may have some modest hypertension, although there is no medication on board to treat this. FAMILY HISTORY: Reveals some hypertension. SOCIAL HISTORY: Reveals him to be a never smoker. He does drink alcohol socially. He is . He has a significant other with whom he visits. MEDICATIONS AT HOME: Include 81 mg aspirin, digoxin, levothyroxine, warfarin per the Coumadin Clinic. ALLERGIES: He has no allergies. REVIEW OF SYSTEMS: Reveals no constitutional symptoms. No new issues referable to head, eyes, ears, nose and throat, cardiovascular, pulmonary, gastrointestinal, genitourinary, and musculoskeletal systems. Neurologically, his only past history reveals a prior TIA like event about 3 years ago, at which point the aspirin was added to his Coumadin. His scheduler is Dr. Galarza. PHYSICAL EXAMINATION: VITAL SIGNS: His blood pressure 177/113. His pulse was 73, respirations were 16. GENERAL: He was well developed, well nourished, did not appear to be in any acute distress. HEENT: Examination was normal. LUNGS: Clear. HEART: Had an irregularly irregular rhythm. ABDOMEN: Soft and nontender. There is no organomegaly. EXTREMITIES: There is no peripheral edema. NEUROLOGIC: Today neurologically, he is awake, alert, oriented in 3 spheres with very clear speech. No problems with reading. No problems with speech, comprehension or output. There are no neologisms or paraphasias. Eye movements are full. Visual cramer are full. Facial motility and strength is normal. Facial sensation is normal. Tongue protrudes in the midline. There is no articulatory disturbance. I did not test gait, but he has normal rapid repetitive motor motions. No drift or pronation sign. No tremors, tics or choreiform activity is seen. Facility of rapid repetitive motions is normal. Reflexes are 1+ symmetrical. Toes are downgoing. No David signs are seen. Strength testing is normal. Sensation is intact to all primary modalities. At this point, I think he should be kept in the hospital until his INR gets closer to the goal, but the decision is going to have to remain with him. He apparently has a son coming back from [place] with a 10-year-old grandchild who he has not seen in a long time and he would prefer to be able to visit with him in his home before the son departs in 24 hours. 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 I made my recommendation to the patient that he stay but again if he decides to leave, he fully comprehends the potential consequences. Right now, his blood pressure does not seem to be an issue as his latest recordings show him to be running about 126/77 and 118/69. I will let the decision about discharge up to his hospitalist but from neurologic point of view, we see no evidence for completed event. He has clearly had transient ischemic events and the management plan is in place. RANDALL
[2016-05-08] MEDS: SODIUM CHLORIDE 0.9% 1000ML 1,000 ML IV SCH (13:16)
[2016-05-08] MEDS ORDERED: WARFARIN SOD 5 MG TAB PO ONE (13:30)
--- NOTE | 2016-05-08 13:31 | Progress Note ---
Subjective Date of Service: May 08, 2016. Subjective Pt evaluation today including: conversation w/ patient, physical exam, lab review, review of studies, review of inpatient medication list Saw/examined the patient in room 211 He states he's had no symptoms since arriving Feels fine and no complaints Problem List Medical Problems: (1) TIA (transient ischemic attack) Status: Acute Review of Systems Constitutional: No chills, No fever, No weakness Respiratory: No shortness of breath Cardiac: No chest pain Neurologic: No balance problems, No numbness/tingling, No paralysis, No vertigo , No weakness Medications Current Inpatient Medications Medications (Trade) Dose Ordered Sig/Jimmy Route Start Time Stop Time Status Last Admin Dose Admin Sodium Chloride (Nss 1000ml) 1,000 ml @ 60 mls/hr [id number] IV 05/07/16 20:36 06/06/16 20:35 05/07/16 22:32 60 MLS/HR Acetaminophen (Tylenol Tab) 650 mg Q4H PRN PO 05/07/16 20:45 06/06/16 20:44 Ondansetron HCl (Zofran Inj) 4 mg Q6H PRN IV 05/07/16 20:45 06/06/16 20:44 Miscellaneous Information (Pharmacist Discharge Med Rec Consult) 1 ea UD PRN N/A 05/07/16 20:45 06/06/16 20:44 Digoxin (Lanoxin Tab) 0.25 mg HS PO 05/07/16 21:00 06/06/16 20:59 05/07/16 23:23 0.25 MG Levothyroxine Sodium (Synthroid Tab) 75 mcg DAILYBB PO 05/08/16 06:00 06/07/16 05:59 05/08/16 05:55 75 MCG Aspirin (Ecotrin Tab) 162 mg QAM PO 05/08/16 09:00 06/07/16 08:59 05/08/16 08:16 162 MG Warfarin Sodium (Coumadin Tab) 10 mg DAILY@16 PO 05/08/16 16:00 06/07/16 15:59 Clonidine HCl (Catapres Tab) 0.1 mg Q6H PRN PO 05/07/16 21:30 06/06/16 21:29 Ioversol (Optiray 320) 115 ml UD PRN IV 05/07/16 21:45 05/11/16 21:44 Heparin Sodium (Porcine) (Heparin Sq 5000 Unit/0.5ml) 5,000 unit Q8 SQ 05/08/16 14:00 06/07/16 13:59 Warfarin Sodium (Coumadin Tab) 10 mg NOW ONCE PO 05/08/16 13:15 05/08/16 13:16 UNV Objective Vital Signs Date Time Temp Pulse Resp B/P Pulse Ox O2 Delivery O2 Flow Rate FiO2 05/08/16 04:00 95 Room Air 05/08/16 03:45 36.4 69 17 126/77 95 Room Air 05/07/16 23:23 64 05/07/16 23:04 36.3 64 19 158/85 96 Room Air 05/07/16 22:36 37.1 66 18 159/63 96 Room Air 05/07/16 21:02 85 16 162/103 97 05/07/16 20:03 73 16 177/113 97 Room Air 05/07/16 18:13 71 16 187/117 97 Room Air 05/07/16 17:28 Room Air 05/07/16 17:04 36.6 78 20 196/104 98 Room Air Physical Exam General Appearance: no apparent distress Respiratory/Chest: chest non-tender, lungs clear, normal breath sounds, no respiratory distress, no accessory muscle use Cardiovascular: no edema, no gallop, no JVD, no murmur, + irregularly irregular Extremities: normal inspection, no pedal edema 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, no motor/sensory deficits, alert, normal mood/affect, oriented x 3 Laboratory Results Last 24 Hours Test 05/07/16 17:20 05/07/16 17:27 05/07/16 17:29 05/07/16 18:15 White Blood Count 4.31 K/uL Red Blood Count 4.30 M/uL Hemoglobin 13.8 g/dL Hematocrit 39.6 % Mean Corpuscular Volume 92.1 fL Mean Corpuscular Hemoglobin 32.1 pg Mean Corpuscular Hemoglobin Concent 34.8 g/dl Platelet Count 195 K/uL Mean Platelet Volume 9.3 fL Neutrophils (%) (Auto) 48.2 % Lymphocytes (%) (Auto) 38.1 % Monocytes (%) (Auto) 10.2 % Eosinophils (%) (Auto) 2.6 % Basophils (%) (Auto) 0.7 % Neutrophils # (Auto) 2.08 K/uL Lymphocytes # (Auto) 1.64 K/uL Monocytes # (Auto) 0.44 K/uL Eosinophils # (Auto) 0.11 K/uL Basophils # (Auto) 0.03 K/uL RDW Standard Deviation 43.2 fL RDW Coefficient of Variation 12.9 % Immature Granulocyte % (Auto) 0.2 % Immature Granulocyte # (Auto) 0.01 K/uL Prothrombin Time 13.7 SECONDS Prothromb Time International Ratio 1.3 Activated Partial Thromboplast Time 29.0 SECONDS Partial Thromboplastin Ratio 1.1 Sodium Level 139 mmol/L Potassium Level 3.6 mmol/L Chloride Level 104 mmol/L Carbon Dioxide Level 32 mmol/L Anion Gap 3.0 mmol/L Blood Urea Nitrogen 15 mg/dl Creatinine 1.30 mg/dl Est Creatinine Clear Calc Drug Dose 59.3 ml/min Estimated GFR () 61.4 Estimated GFR (Non- 53.0 BUN/Creatinine Ratio 11.9 Random Glucose 99 mg/dl Calcium Level 8.6 mg/dl Total Creatine Kinase 284 U/L Creatine Kinase MB 2.3 ng/ml Creatine Kinase MB Ratio 0.8 Troponin I < 0.015 ng/ml Digoxin Level 0.4 ng/ml Bedside Glucose 117 mg/dl Bedside Prothrombin Time INR 1.4 Urine Color YELLOW Urine Appearance CLEAR Urine pH 7.0 Urine Specific [place] 1.006 Urine Protein NEG Urine Glucose (UA) NEG Urine Ketones NEG Urine Occult Blood NEG Urine Nitrite NEG Urine Bilirubin NEG Urine Urobilinogen NEG Urine Leukocyte Esterase NEG Urine Opiates Screen NEG Urine Methadone, Qualitative NEG Urine Barbiturates NEG Urine Phencyclidine (PCP) Level NEG Ur Amphetamine/Methamphetamine NEG MDMA (Ecstasy) Screen NEG Urine Benzodiazepines Screen NEG Urine Cocaine Metabolite NEG Urine Marijuana (THC) NEG Test 05/08/16 05:20 White Blood Count 4.62 K/uL Red Blood Count 3.89 M/uL Hemoglobin 12.4 g/dL Hematocrit 35.8 % Mean Corpuscular Volume 92.0 fL Mean Corpuscular Hemoglobin 31.9 pg Mean Corpuscular Hemoglobin Concent 34.6 g/dl Platelet Count 190 K/uL Mean Platelet Volume 10.2 fL Neutrophils (%) (Auto) 43.4 % Lymphocytes (%) (Auto) 44.6 % Monocytes (%) (Auto) 9.5 % Eosinophils (%) (Auto) 1.9 % Basophils (%) (Auto) 0.6 % Neutrophils # (Auto) 2.00 K/uL Lymphocytes # (Auto) 2.06 K/uL Monocytes # (Auto) 0.44 K/uL Eosinophils # (Auto) 0.09 K/uL Basophils # (Auto) 0.03 K/uL RDW Standard Deviation 43.2 fL RDW Coefficient of Variation 12.9 % Immature Granulocyte % (Auto) 0.0 % Immature Granulocyte # (Auto) 0.00 K/uL Prothrombin Time 14.2 SECONDS Prothromb Time International Ratio 1.3 Sodium Level 142 mmol/L Potassium Level 3.8 mmol/L Chloride Level 107 mmol/L Carbon Dioxide Level 29 mmol/L Anion Gap 6.0 mmol/L Blood Urea Nitrogen 14 mg/dl Creatinine 0.98 mg/dl Est Creatinine Clear Calc Drug Dose 77.3 ml/min Estimated GFR () 86.5 Estimated GFR (Non- 74.6 BUN/Creatinine Ratio 14.3 Random Glucose 80 mg/dl Estimated Average Glucose 114 mg/dl Hemoglobin A1c 5.6 % Calcium Level 8.3 mg/dl Triglycerides Level 97 mg/dl Cholesterol Level 165 mg/dl HDL Cholesterol 43 mg/dl LDL Cholesterol, Calculated 103 mg/dl VLDL Cholesterol, Calculated 19 mg/dl Cholesterol/HDL Ratio 3.8 Thyroid Stimulating Hormone (TSH) 3.420 uIu/ml Assessment and Plan This is a 75 year old male with PMH of chronic atrial fibrillation on long-term anticoagulation, hypothyroidism presents with stroke-like symptoms Likely TIA patient presented with stroke like symptoms which have resolved this likely represents a TIA in the setting of atrial fibrillation with subtherapeutic INR Head CT, Brain MRI, CTA head/neck negative for any acute findings Patient was given aspirin 162mg will discuss with patient about starting statin Continue Coumadin appreciate neurology input Chronic Atrial Fibrillation patient is on Coumadin, home dose is 10mg except 5mg on Tuesday & Tuesday INR here was 1.3 repeat INR also 1.3 told patient that it is in his best interest to stay in the hospital until INR is closer to 2-3; with a risk of stroke if he does not He knows the risks involved, but would like to be discharged anyway will have very close outpatient follow-up Given 10mg of Coumadin prior to discharge another 10mg on 05/09 f/u with Coumadin clinic on 05/10 - they will call him Dr. Dean f/u on 05/11 - they will call if they have opening on May 10 DVT ppx subq heparin FULL CODE
[2016-05-08] MEDS ORDERED: CMD5 PO (13:38)
[2016-05-08] MEDS ORDERED: ATOR-54 PO (13:38)
[2016-05-08] MEDS ORDERED: ASPEC81 PO (13:38)
--- NOTE | 2016-05-08 13:42 | Discharge Instructions ---
Discharge Instructions Date of Service May 08, 2016. Admission Reason for Admission: TIA Discharge Discharge Diagnosis / Problem: TIA, A. Fib, subtherapeutic INR Discharge Goals Goal(s): Decrease discomfort, Improve function, Diagnostic testing, Therapeutic intervention Activity Recommendations Activity Limitations: resume your previous activity . Instructions / Follow-Up Instructions / Follow-Up Please follow-up with Dr. Dean on May 11 @ 2:10PM - you will get a call if they can get you in on May 10 Please follow-up with the Coumadin clinic on May 10 - they will call you with an appointment time * You received 10mg of Coumadin on 05/08 already * Take 10mg on Tuesday, 05/09, then follow-up with the Coumadin clinic - you may need to take 10mg daily * Take aspirin 162mg daily * You are started on Lipitor; take 20mg daily * While your INR is below 2, there is a risk of stroke - please return to the ER with any slurring of speech, difficulty speaking, facial droop, one sided weakness or any change in health Current Hospital Diet Patient's current hospital diet: AHA Diet (Heart Healthy) Discharge Diet Recommended Diet: AHA Diet (Heart Healthy) Pending Studies Studies pending at discharge: no Laboratory Results Hemoglobin A1c Test 05/08/16 05:20 Range/Units Estimated Average Glucose 114 mg/dl Hemoglobin A1c 5.6 4.5-5.6 % Lipid Panel Test 05/08/16 05:20 Range/Units Triglycerides Level 97 0-150 mg/dl Cholesterol Level 165 0-200 mg/dl HDL Cholesterol 43 mg/dl Cholesterol/HDL Ratio 3.8 LDL Cholesterol, Calculated 103 mg/dl Medical Emergencies . Who to Call and When: Medical Emergencies: If at any time you feel your situation is an emergency, please call 911 immediately. . Non-Emergent Contact Non-Emergency issues call your: Primary Care Provider . . "Provider Documentation" section prepared by Lita Garcia. VTE Core Measure Inpt VTE Proph given/why not?: Unfractionated heparin SQ, Warfarin (Coumadin)
--- NOTE | 2016-05-08 13:43 | Discharge Summary ---
Discharge Summary Date of Service May 08, 2016. Discharge Summary Admission Date: May 07, 2016 at 20:29 Discharge Date: May 08, 2016 Discharge Disposition: Home Principal Diagnosis: TIA Chronic Atrial Fibrillation Subtherapeutic INR Medication Reconciliation New Medications: Atorvastatin (Lipitor) 20 Mg Tab 20 MG PO DAILY for 90 Days, #90 TAB Aspirin (Aspirin EC Low Dose) 81 Mg Ectab 162 MG PO QAM for 30 Days, #60 TABS Warfarin Sod (Coumadin) 5 Mg Tab 10 MG PO DAILY@16 for 30 Days, #30 TAB Continued Medications: Digoxin (Digoxin) 0.25 Mg Tab 0.25 MG PO HS Levothyroxine Sodium (Levothyroxine Sodium) 75 Mcg Tab 75 MCG PO QAM Discontinued Medications: Aspirin (Aspirin) 325 Mg Tab 1 DOSE PO UD TAKE 1/3rd OF A 325 MG TABLET DAILY. Warfarin Sod (Jantoven) 5 Mg Tab 5 MG PO DIRECTED, TAB TAKE 5MG ON TUESDAY AND TUESDAY. Warfarin Sodium (Warfarin Sodium) 5 Mg Tab 10 MG PO DAILY TAKE 10 MG EVERY DAY OR OTHERWISE DIRECTED TO TAKE BY ANTICOAGULATION CLINIC/MD. Admission Information HPI (per Admitting provider): 75 year old male with history of Atrial Fibrillation on Coumadin, TIAs, presenting with episodes of aphasia. Follows with Dr. Chand for Primary Care Physician. Patient was in his usual state of health until around 3pm, while having lunch, patient noted that he was having difficulty understanding his emails. He managed to drive to his significant other and she noticed that the patient was having difficulty forming words and to some degree, understanding. After about 30 minutes, the symptoms resolved spontaneously. Towards the evening, the patient was in a [employer] store when he again experienced the same symptoms. He managed to call his significant other again who picked him up and brought him to the ER. By the time they arrrived at the ER, symptoms have resolved. Patient reports left sided headache this afternoon as well. At the ER, patient received hypertensive with systolic bp 190s. CT head: no acute process EKG: A fib , rate controlled INR 1.3 On exam, patient was alert, pleasant, oriented x 3. States he feels back to baseline, significant other agrees he is back to baseline. Denies any focal neuro symptoms, chest pain, dyspnea, dizziness, nausea. No other symptoms. Physical Exam (per Admitting): General Appearance: WD/WN, no apparent distress Head: normocephalic, atraumatic Eyes: normal inspection, PERRL, EOMI, sclerae normal ENT: normal ENT inspection, hearing grossly normal, pharynx normal Neck: supple, no adenopathy, thyroid normal, no JVD Respiratory/Chest: chest non-tender, lungs clear, normal breath sounds, no respiratory distress, no accessory muscle use Cardiovascular: regular rate, rhythm, no edema, no JVD, no murmur Abdomen/GI: normal bowel sounds, non tender, soft, no organomegaly Back: normal inspection, no CVA tenderness Extremities/Musculoskelatal: normal inspection, no calf tenderness, no pedal edema, normal range of motion 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, no motor/sensory deficits, alert , normal mood/affect, normal reflexes, oriented x 3 Skin: normal color, warm/dry, no rash Lymphatic: no adenopathy Hospital Course This is a 75 year old male with PMH of chronic atrial fibrillation on long-term anticoagulation, hypothyroidism presents with stroke-like symptoms Likely TIA patient presented with stroke like symptoms which have resolved this likely represents a TIA in the setting of atrial fibrillation with subtherapeutic INR Head CT, Brain MRI, CTA head/neck negative for any acute findings Patient was given aspirin 162mg will discuss with patient about starting statin Continue Coumadin appreciate neurology input Chronic Atrial Fibrillation patient is on Coumadin, home dose is 10mg except 5mg on Tuesday & Tuesday INR here was 1.3 repeat INR also 1.3 told patient that it is in his best interest to stay in the hospital until INR is closer to 2-3; with a risk of stroke if he does not He knows the risks involved, but would like to be discharged anyway will have very close outpatient follow-up Given 10mg of Coumadin prior to discharge another 10mg on 05/09 f/u with Coumadin clinic on 05/10 - they will call him Dr. Dean f/u on 05/11 - they will call if they have opening on May 10 DVT ppx subq heparin FULL CODE Total time spent on discharge = 55 minutes This includes examination of the patient, discharge planning, medication reconciliation, and communication with other providers. Discharge Instructions Please follow-up with Dr. Dean on Tracy, Ruth 4 @ 2:10PM - you will get a call if they can get you in on May 10 Please follow-up with the Coumadin clinic on May 10 - they will call you with an appointment time * You received 10mg of Coumadin on 05/08 already * Take 10mg on Tuesday, 05/09, then follow-up with the Coumadin clinic - you may need to take 10mg daily * Take aspirin 162mg daily * You are started on Lipitor; take 20mg daily * While your INR is below 2, there is a risk of stroke - please return to the ER with any slurring of speech, difficulty speaking, facial droop, one sided weakness or any change in health
[2016-05-08] MEDS ORDERED: HEPARIN SOD 5000 UNIT/0.5 ML CARP SQ SCH (14:00)
[2016-05-08 14:10] VITALS: BP 118/69; PULSE 76; TEMP 36.8; O2SAT 95
--- NOTE | 2016-05-08 14:48 | Pharmacy Progress Note ---
Pharmacist Stroke Counseling Date of Service May 08, 2016. Scope Pharmacy has been consulted to provide medication discharge counseling for this patient admitted with transient ischemic attack as per the Pharmacist Discharge Counseling for Stroke Patients Protocol. Medications on Discharge New Medications: Atorvastatin (Lipitor) 20 Mg Tab 20 MG PO DAILY for 90 Days, #90 TAB Aspirin (Aspirin EC Low Dose) 81 Mg Ectab 162 MG PO QAM for 30 Days, #60 TABS Warfarin Sod (Coumadin) 5 Mg Tab 10 MG PO DAILY@16 for 30 Days, #30 TAB Continued Medications: Digoxin (Digoxin) 0.25 Mg Tab 0.25 MG PO HS Levothyroxine Sodium (Levothyroxine Sodium) 75 Mcg Tab 75 MCG PO QAM Discontinued Medications: Aspirin (Aspirin) 325 Mg Tab 1 DOSE PO UD TAKE 1/3rd OF A 325 MG TABLET DAILY. Warfarin Sod (Jantoven) 5 Mg Tab 5 MG PO DIRECTED, TAB TAKE 5MG ON TUESDAY AND TUESDAY. Warfarin Sodium (Warfarin Sodium) 5 Mg Tab 10 MG PO DAILY TAKE 10 MG EVERY DAY OR OTHERWISE DIRECTED TO TAKE BY ANTICOAGULATION CLINIC/MD. Action The above medications, specifically ones for stroke treatment/prophylaxis, have been reviewed in detail with the patient and/or patient retail customer service representative(s) prior to discharge. This includes indication, common adverse reactions, drug interactions, and medication administration. Medication counseling has been employed using the teach-back method to ensure understanding. Outcome The patient and/or patient retail customer service representative(s) have demonstrated understanding of the medications. Please note, they are aware that the pharmacist will call them within 72 hours post-discharge to confirm that the appropriate medications are being taken and answer any further medication related questions the patient might have at that time. Contact information Individual to be contacted: Patient Relationship to patient (if applicable): Phone number: [phone] Best time to call: N/A Additional comments: Instructed patient about the start of Lipitor and explained the purpose of lipid lowering effects and reducing strokes. He was very familiar with side effects. He seemed hesitant regarding starting but is going to try. I explained the new dosing of aspirin and the dosing of his warfarin for the next two days. On Tuesday he will follow up with [facility]. I asked Dr Garcia about the starting of moderate intensity statins in a TIA patient. He was hesitant to increase to high intensity statin. After speaking with the patient it appears that starting lower and then titrating upwards is a better method. Thank you for allowing pharmacy to be involved in the care of this patient. Please call [phone] or [phone] with any additional questions
[2016-05-08] MEDS ORDERED: WARFARIN SOD 5 MG TAB PO SCH (16:00)
--- NOTE | 2016-05-08 16:30 | ECHOCARDIOGRAM REPORT ---
*NOTICE TO RECEIVING CONSTITUTION PARTY AGENCY This information is strictly Confidential and protected under [place] law. [place] law prohibits you from making any further disclosure of this information unless further disclosure is expressly permitted by the written consent of the person to whom it pertains or is authorized by law. A general authorization for the release of medical or other information is not sufficient for this purpose. Hospital accepts no responsibility if the information is made available to any other person, INCLUDING THE PATIENT. Interpretation Summary * Name: NAUN MONTES Study Date: 05/08/2016 10:07 AM * Patient Location: 2E\S\E211\S\1 * : 1940 (M/d/yyyy) Gender: Male Height: 76 in * Age: 75 yrs Ethnicity: CA Weight: 194 lb * Ordering Physician: Dani Gonzalez * Performed By: Ynes Barth * * Reason For Study: STROKE * BSA: 2.2 m2 * The study was technically adequate. * Compared to prior study, changes are noted. * -- Conclusions -- * Left ventricular systolic function is normal. * Ejection Fraction = 50-55%. * There is mild concentric left ventricular hypertrophy. * The left atrium is moderately dilated. * Injection of contrast documented no interatrial shunt. * Aortic valve sclerosis mild, without significant aortic valvular stenosis. Procedure Details * A saline contrast injection was performed to assess for cardiac shunting. * The injection was performed through an intravenous line in the right arm. * The attending nurse who injected the saline contrast was LEIGH GALLOWAY RN. * A total of 20 cc of agitated saline was given. * A complete two-dimensional transthoracic echocardiogram was performed (2D, M-mode, Doppler and color flow Doppler). Left Ventricle * The left ventricle is normal in size. * There is mild concentric left ventricular hypertrophy. * Ejection Fraction = 50-55%. * Left ventricular systolic function is normal. * The left ventricular wall motion is normal. Right Ventricle * The right ventricle is normal size. * The right ventricular systolic function is normal as assessed by tricuspid annular plane systolic excursion (TAPSE) (normal >1.5 cm). Atria * The left atrium is moderately dilated. * Right atrial size is normal. * There is no evidence of atrial septal defect, but resolution does not allow assessment for a patent foramen ovale. * Injection of contrast documented no interatrial shunt. Mitral Valve * The mitral valve is normal. * There is no mitral valve stenosis. * There is trace mitral regurgitation. Tricuspid Valve * The tricuspid valve is normal. * There is no tricuspid stenosis. * There is trace tricuspid regurgitation. Aortic Valve * The aortic valve is trileaflet. * Aortic valve sclerosis mild, without significant aortic valvular stenosis. * Aortic stenosis is absent. * There is no significant aortic regurgitation. Pulmonic Valve * The pulmonary valve is not well seen, but the Doppler examination is normal without significant regurgitation or stenosis. Great Vessels * Borderline aortic root dilatation. * Borderline dilated ascending aorta. Pericardium/Pleural * There is no pericardial effusion. Great Vessels * Dilated inferior vena cava with reduced collapsability with sniff indicates an elevated right atrial pressure of 15 mmHg MMode 2D Measurements and Calculations IVSd 1.3 cm LVIDd 4.7 cm LVIDs 3.7 cm LVPWd 1.3 cm IVS/LVPW 0.99 FS 21.4 % EDV(Teich) 100.0 ml ESV(Teich) 56.4 ml EF(Teich) 43.5 % EDV(cubed) 100.7 ml ESV(cubed) 48.8 ml EF(cubed) 51.5 % LV mass(C)d 245.7 grams LV mass(C)dI 112.4 grams/m\S\2 SV(Teich) 43.5 ml SI(Teich) 19.9 ml/m\S\2 SV(cubed) 51.9 ml SI(cubed) 23.7 ml/m\S\2 Ao root diam 3.8 cm Ao root area 11.2 cm\S\2 ACS 2.1 cm LA dimension 4.6 cm asc Aorta Diam 3.9 cm LA/Ao 1.2 LVOT diam 2.0 cm LVOT area 3.2 cm\S\2 LVAd ap4 27.4 cm\S\2 LVLd ap4 7.3 cm EDV(MOD-sp4) 87.0 ml EDV(sp4-el) 86.6 ml LVAs ap4 17.4 cm\S\2 LVLs ap4 6.4 cm ESV(MOD-sp4) 42.1 ml ESV(sp4-el) 39.8 ml EF(MOD-sp4) 51.7 % EF(sp4-el) 54.1 % LVAd ap2 22.7 cm\S\2 LVLd ap2 6.9 cm EDV(MOD-sp2) 61.1 ml EDV(sp2-el) 63.7 ml LVAs ap2 14.9 cm\S\2 LVLs ap2 6.0 cm ESV(MOD-sp2) 31.3 ml ESV(sp2-el) 31.3 ml EF(MOD-sp2) 48.8 % EF(sp2-el) 51.0 % LVLd %diff -6.99 % EDV(MOD-bp) 73.7 ml LVLs %diff -7.04 % ESV(MOD-bp) 36.3 ml EF(MOD-bp) 50.7 % SV(MOD-sp4) 45.0 ml SI(MOD-sp4) 20.6 ml/m\S\2 SV(MOD-sp2) 29.9 ml SI(MOD-sp2) 13.7 ml/m\S\2 SV(MOD-bp) 37.4 ml SI(MOD-bp) 17.1 ml/m\S\2 SV(sp4-el) 46.8 ml SI(sp4-el) 21.4 ml/m\S\2 SV(sp2-el) 32.5 ml SI(sp2-el) 14.9 ml/m\S\2 Doppler Measurements and Calculations MV E max brissa 67.3 cm/sec MV dec time 0.25 sec Ao V2 max 74.4 cm/sec Ao max PG 2.2 mmHg Ao max PG (full) 1.1 mmHg KENYON(V,A) 2.3 cm\S\2 KENYON(V,D) 2.3 cm\S\2 LV V1 max PG 1.2 mmHg LV V1 max 53.7 cm/sec MR max brissa 530.6 cm/sec MR max PG 112.6 mmHg PA V2 max 78.9 cm/sec PA max PG 2.5 mmHg PA acc slope 322.7 cm/sec\S\2 PA acc time 0.19 sec PI max brissa 158.9 cm/sec PI max PG 10.1 mmHg PI dec slope 129.2 cm/sec\S\2 PI P1/2t 360.1 msec TR max brissa 191.3 cm/sec PA pr(Accel) -6.42 mmHg
--- NOTE | 2016-05-10 13:50 | Pharmacy Progress Note ---
Pharmacist Post D/C Phone Note Date of phone call: May 10, 2016. Result: No answer. Left message. The patient and/or patient sales training representative(s) were unable to be reached for a follow-up phone call within the 72 hour time frame. Discharge counseling pharmacist contact information has already been provided to the patient should questions arise. I also left pharmacy number on voicemail message with instructions to call back with questions. Thank you for allowing us to be involved in the care of this patient.
== END 2016-05-08 16:12 | disposition home or self-care (01) | DRG 69 ==
LOC: ENRESERVTM → ENRESERVDT → C.EDB 17:02 → C.2E 20:29
PROVIDERS: ADMIT Internal Medicine; ATTEND Family Medicine
DX: G45.9 Transient cerebral ischemic attack, unspecified (principal); I48.2 Chronic atrial fibrillation; R79.1 Abnormal coagulation profile; Z79.82 Long term (current) use of aspirin; Z79.01 Long term (current) use of anticoagulants; N40.0 Benign prostatic hyperplasia without lower urinary tract symptoms; E03.9 Hypothyroidism, unspecified; Z96.653 Presence of artificial knee joint, bilateral; Z82.49 Family history of ischemic heart disease and other diseases of the circulatory system; I16.0 Hypertensive urgency

== ENCOUNTER 2016-06-11 13:16 | Inpatient (IN) | payer OTHER ==
[~2016-06-11] VITALS: Ht 193 cm; Wt 83.6 kg
[~2016-06-11 13:16] MED LIST changes: +ASPEC81 PO; -ASPI325T45 PO; +ATOR-54 PO; +CMD5 PO; -WARF-246 PO
[2016-06-11] MEDS ORDERED: LEVO88TA PO (13:35)
[2016-06-11] MEDS ORDERED: ACET-1256 PO (13:35)
[2016-06-11] MEDS ORDERED: ASPI81TA28 PO (13:35)
[2016-06-11] MEDS ORDERED: WARF-237 PO (13:35)
--- NOTE | 2016-06-11 13:53 | EMERGENCY ROOM VISIT NOTE ---
History Report prepared by Gerhard: Tate Baxter Under the Supervision of: Dr. Hayden Whitley M.D. First contact with patient: 13:40 Chief Complaint: DIZZY Stated Complaint: DIZZINESS Nursing Triage Summary: pt brought to ER for dizziness. patient was [facility] for [facility] hematoma and pain. pt went to [facility] and stood up and became very dizzy and lightheaded. pt c/o left leg hematoma and increased swelling since last tuesday. brusing noted to left posterior thigh above knee that radiates to upper thigh area. on arrival to ER patient does not feel dizzy or light headed. alert and oriented x4. pt c/o pain to left thigh. pt is on coumadin for afib History of Present Illness The patient is a 75 year old male with a history of atrial fibrillation and on Coumadin who presents to the Emergency Room with complaints of a worsening left leg hematoma that started around 4 days ago. According to the nursing staff, the patient was sent here after seeing his primary care physician today for the leg hematoma, and became very dizzy and lightheaded upon standing there. The patient states that 6 days ago he gave himself a Luis horse, and rubbed his left leg vigorously. He then started limping around with left leg pain, and every day since then, it has become more and more red, swollen and painful. The patient has been seen at his primary care physician's office 3 times this week. The patient had blood work done 3 days ago, and his INR was high at 4, and his hemoglobin was low at 9. He notes that his hemoglobin is usually around 13. The patient says that he had blood work again yesterday, and his INR was down to 3.4 , and his hemoglobin was a little low again as well. The patient also had an ultrasound of his leg. He says that he did not injure or bump his leg. The patient denies any melena. The patient notes that he has a few colonoscopies in the past, with no problems. Source of History: patient Onset: 4 days ago Position: leg (left) Quality: other (hematoma, worsening redness, swelling and pain) Timing: worsening Associated Symptoms: No melena Note: Associated symptoms: Lightheadedness, dizziness this morning. Denies injuring or bumping left leg. Review of Systems See HPI for pertinent positives & negatives. A total of 10 systems reviewed and were otherwise negative. Past Medical & Surgical Medical Problems: (1) Atrial fibrillation (2) Dyslipidemia (3) Hiatal hernia (4) Hypothyroidism Surgical Problems: (1) H/O vasectomy (2) History of bilateral knee replacement (3) History of inguinal hernia repair Family History Hypertension Social History Smoking Status: Never Smoker Alcohol Use: occasionally Drug Use: none Marital Status: Occupation Status: retired Current/Historical Medications Scheduled Acetaminophen (Tylenol), 2 TAB PO Q6 Aspirin (Aspirin Ec), 81 MG PO DAILY Atorvastatin (Lipitor), 20 MG PO DAILY Digoxin (Digoxin), 0.25 MG PO HS Levothyroxine Sodium (Synthroid), 88 MCG PO DAILY Ranitidine (Zantac), 150 MG PO BID Warfarin Sod (Coumadin), 1 TAB PO QAM Allergies Coded Allergies: No Known Allergies (Unverified , 06/11/16) Physical Exam Vital Signs Date Time Temp Pulse Resp B/P Pulse Ox O2 Delivery O2 Flow Rate FiO2 06/11/16 15:30 76 21 157/105 98 Room Air 06/11/16 14:23 99 Room Air 06/11/16 13:31 84 06/11/16 13:21 36.9 103 18 168/95 97 Room Air Physical Exam GENERAL: Patient is a healthy-appearing well-nourished 75 year old male. HEAD: Normocephalic atraumatic EYES: Ocular movements intact pupils equal and react to light OROPHARYNX mucous membranes are moist no exudates present no erythema or edema present NECK: Supple no nuchal rigidity CHEST: Good equal expansion LUNGS: Clear and equal to auscultation CARDIAC: Normal S1 and S2 ABDOMEN: Soft nontender no guarding BACK: No CVA tenderness EXTREMITIES: Huge hematoma that extends from posterior site of left leg gluteal cleft all the way to left ankle. NEURO: Patient is following commands is answering questions appropriately. Alert and oriented x3 Cranial Nerves 2-12 grossly intact Medical Decision & Procedures ER Provider Diagnostic Interpretation: US results as stated below per my review and radiologist interpretation: ARTERIAL DOPPLER ULTRASOUND LEFT LOWER EXTREMITY CLINICAL HISTORY: Left lower extremity pain and swelling COMPARISON STUDY: No previous studies for comparison. FINDINGS: The systolic pressure within the right brachial artery is 185 mmHg. The systolic pressure within the left brachial artery is millimeters of mercury. The posterior tibial systolic pressure in the right is 210 mmHg. Posterior tibial systolic pressure on the left is 176 mmHg. Dorsalis pedis systolic pressure on the right is 171 mmHg. The dorsalis pedis systolic pressure in the left is 172 mmHg. This yields ankle arm indices of 1.1 on the right and 0.95 on the left. There is triphasic flow within the left common femoral, superficial femoral, and popliteal arteries. There is triphasic flow within the posterior tibial peroneal and anterior tibial arteries. No high velocity jets are visualized. IMPRESSION: No evidence of left lower extremity arterial stenosis. Electronically signed by: Arnav Arevalo M.D. 06/11/2016 4:03 PM Dictated Date/Time: 06/11/2016 4:00 PM ULTRASOUND VENOUS DOPPLER ULTRASOUND LEFT LOWER EXTREMITY CLINICAL HISTORY: Left lower extremity swelling COMPARISON STUDY: No previous studies for comparison. FINDINGS: Real-time and color flow Doppler imaging were performed. Flow was seen within the femoral, popliteal and calf veins with no intraluminal thrombus demonstrated. The saphenous vein is patent. IMPRESSION: No evidence of left lower extremity DVT. Electronically signed by: Arnav Arevalo M.D. 06/11/2016 3:54 PM Dictated Date/Time: 06/11/2016 3:54 PM Laboratory Results 06/11/16 14:20 Red Blood Count 2.72, Mean Corpuscular Volume 95.2, Mean Corpuscular Hemoglobin 30.9, Mean Corpuscular Hemoglobin Concent 32.4, Mean Platelet Volume 9.3, Neutrophils (%) (Auto) 83.0, Lymphocytes (%) (Auto) 11.1, Monocytes (%) (Auto) 4.6, Eosinophils (%) (Auto) 0.8, Basophils (%) (Auto) 0.3, Neutrophils # (Auto) 5.18, Lymphocytes # (Auto) 0.69, Monocytes # (Auto) 0.29, Eosinophils # (Auto) 0.05, Basophils # (Auto) 0.02 06/11/16 14:20 Test 06/11/16 14:18 06/11/16 14:20 Bedside Hemoglobin 8.2 g/dl (14.0-18.0) Bedside Hematocrit 24 % (42-52) Bedside Sodium 136 mEq/L (135-144) Bedside Potassium 4.1 mEq/L (3.3-5.0) Bedside Chloride 98 mEq/L (101-112) Bedside Total CO2 25 mEq/l (24-31) Bedside Blood Urea Nitrogen 11 mg/dl (7-18) Bedside Creatinine 0.9 mg/dl (0.6-1.3) Bedside Glucose (other) 139 mg/dl (70-99) Bedside Ionized Calcium (Charli) 1.18 mmol/l (1.12-1.32) White Blood Count 6.24 K/uL (4.8-10.8) Red Blood Count 2.72 M/uL (4.7-6.1) Hemoglobin 8.4 g/dL (14.0-18.0) Hematocrit 25.9 % (42-52) Mean Corpuscular Volume 95.2 fL (80-100) Mean Corpuscular Hemoglobin 30.9 pg (25-34) Mean Corpuscular Hemoglobin Concent 32.4 g/dl (32-36) Platelet Count 229 K/uL (130-400) Mean Platelet Volume 9.3 fL (7.4-10.4) Neutrophils (%) (Auto) 83.0 % Lymphocytes (%) (Auto) 11.1 % Monocytes (%) (Auto) 4.6 % Eosinophils (%) (Auto) 0.8 % Basophils (%) (Auto) 0.3 % Neutrophils # (Auto) 5.18 K/uL (1.4-6.5) Lymphocytes # (Auto) 0.69 K/uL (1.2-3.4) Monocytes # (Auto) 0.29 K/uL (0.11-0.59) Eosinophils # (Auto) 0.05 K/uL (0-0.5) Basophils # (Auto) 0.02 K/uL (0-0.2) RDW Standard Deviation 45.2 fL (36.4-46.3) RDW Coefficient of Variation 13.0 % (11.5-14.5) Immature Granulocyte % (Auto) 0.2 % Immature Granulocyte # (Auto) 0.01 K/uL (0.00-0.02) Polychromasia 1+ Prothrombin Time 18.5 SECONDS (9.0-12.0) Prothromb Time International Ratio 1.7 (0.9-1.1) Activated Partial Thromboplast Time 31.7 SECONDS (21.0-31.0) Partial Thromboplastin Ratio 1.2 Anion Gap 5.0 mmol/L (3-11) Est Creatinine Clear Calc Drug Dose 75.3 ml/min Estimated GFR () 84.4 Estimated GFR (Non- 72.8 BUN/Creatinine Ratio 11.6 (10-20) Calcium Level 8.7 mg/dl (8.5-10.1) Total Bilirubin 0.8 mg/dl (0.2-1) Direct Bilirubin 0.3 mg/dl (0-0.2) Aspartate Amino Transf (AST/SGOT) 31 U/L (15-37) Alanine Aminotransferase (ALT/SGPT) 25 U/L (12-78) Alkaline Phosphatase 69 U/L (45-117) Total Protein 6.6 gm/dl (6.4-8.2) Albumin 3.2 gm/dl (3.4-5.0) Lipase 237 U/L (73-393) Digoxin Level 0.9 ng/ml (0.8-2.0) Labs reviewed by ED physician. Medications Administered Medications (Trade) Dose Ordered Sig/Jimmy Route Start Time Stop Time Status Last Admin Dose Admin Sodium Chloride (Nss 500ml) 500 ml @ 999 mls/hr Q31M STAT IV 06/11/16 14:26 06/11/16 14:56 DC 06/11/16 14:41 999 MLS/HR ECG Indication: other (dizziness) Rate (beats per minute): 84 Rhythm: atrial fibrillation Findings: T-wave inversion (Anterior), no acute ischemic change ED Course 1342: Past medical records reviewed. The patient was evaluated in room A3. A complete history and physical examination was performed. 1426: Ordered NSS 500 ml @ 999 mls/hr IV, Zofran Inj 4 mg IV, Morphine Sulfate Inj 4 mg IV. 1607: I discussed the patient with Melyssa Kenyon - she will evaluate the patient for further treatment. 1614: I reevaluated the patient and he is resting comfortably. The patient verbally expressed understanding and agreement of the treatment plan. The patient will be evaluated for further treatment. Medical Decision Prior records/ancillary studies reviewed and summarized above. Nursing notes reviewed. Differential diagnosis: Etiologies such as metabolic, infection, hypo/hyperglycemia, electrolyte abnormalities, cardiac sources, intracerebral event, toxicologic, neurologic, as well as others were entertained. This is a 75-year-old male who presents emergency department complaining of a large hematoma to his leg as well as a steadily decreasing him hemoglobin over the past several days. The patient was noted to have an elevation in his INR over the past weekend. His INR today is 1.7 however his hemoglobin is continuing to fall area he was sent for an ultrasound of the lower extremity along with a ultrasound of the arterial flow. This did not show any acute process. I did discuss the case with the hospitalist service who agreed to it the patient. The patient was given normal saline bolus as well as morphine and Zofran in the emergency department repeat examination revealed improvement the patient's symptoms. Patient and are in agreement with the treatment plan. Consults Time Called: 1603 Consulting Physician: Melyssa Kenyon Returned Call: 1607 I discussed the patient with Melyssa Kenyon - she will evaluate the patient for further treatment. Impression Primary Impression: Anemia Additional Impression: Hematoma Scribe Attestation The scribe's documentation has been prepared under my direction and personally reviewed by me in its entirety. I confirm that the note above accurately reflects all work, treatment, procedures, and medical decision making performed by me. Departure Information Dispostion Being Evaluated By Hospitalist Referrals Vinnie Chand D.O. (PCP) Patient Instructions My [facility] Problem Qualifiers Primary Impression: Anemia Anemia type: unspecified type Qualified Codes: D64.9 - Anemia, unspecified
[2016-06-11] MEDS ORDERED: MoRPHine SULFATE 4 MG/ML 1 ML CARP\\VIAL IV STA (14:26)
[2016-06-11] MEDS ORDERED: ONDANSETRON INJ 2 MG/ML 2 ML VIAL IV STA (14:26)
[2016-06-11] MEDS ORDERED: SODIUM CHLORIDE 0.9% 500ML 500 ML IV STA (14:26)
[2016-06-11 14:31] LABS: ISTAT CREATININE 0.9 mg/dl (0.6-1.3); ISTAT HEMOGLOBIN 8.2 g/dl (14.0-18.0); ISTAT IONIZED CALCIUM 1.18 mmol/l (1.12-1.32)
[2016-06-11 14:35] LABS: BASO % 0.3 %; BASO ABS # 0.02 K/uL (0-0.2); EOS % 0.8 %; HEMATOCRIT 25.9 % (42-52); IG% 0.2 %; LYMPH % 11.1 %; LYMPH ABS # 0.69 K/uL (1.2-3.4); MEAN CELL VOLUME 95.2 fL (80-100); MEAN CORPUSCULAR HEMOGLOBIN 30.9 pg (25-34); MEAN CORPUSCULAR HGB CONC 32.4 g/dl (32-36); MEAN PLATELET VOLUME 9.3 fL (7.4-10.4); MONO % 4.6 %; PLATELET COUNT 229 K/uL (130-400); RED BLOOD COUNT 2.72 M/uL (4.7-6.1); WHITE BLOOD COUNT 6.24 K/uL (4.8-10.8)
[2016-06-11 14:37] LABS: INR 1.7 (0.9-1.1); PARTIAL THROMBOPLASTIN RATIO 1.2; PROTHROMBIN TIME (PATIENT) 18.5 SECONDS (9.0-12.0)
[2016-06-11 14:44] LABS: BUN/CREATININE RATIO 11.6 (10-20); CALCIUM 8.7 mg/dl (8.5-10.1); POTASSIUM 4.3 mmol/L (3.5-5.1)
[2016-06-11 14:57] LABS: COMPLETE YES; POLYCHROMASIA 1+
--- NOTE | 2016-06-11 15:56 | DIAGNOSTIC IMAGING REPORT ---
ULTRASOUND VENOUS DOPPLER ULTRASOUND LEFT LOWER EXTREMITY CLINICAL HISTORY: Left lower extremity swelling COMPARISON STUDY: No previous studies for comparison. FINDINGS: Real-time and color flow Doppler imaging were performed. Flow was seen within the femoral, popliteal and calf veins with no intraluminal thrombus demonstrated. The saphenous vein is patent. IMPRESSION: No evidence of left lower extremity DVT. Electronically signed by: Arnav Arevalo M.D. 06/11/2016 3:54 PM Dictated Date/Time: 06/11/2016 3:54 PM
--- NOTE | 2016-06-11 16:04 | DIAGNOSTIC IMAGING REPORT ---
ARTERIAL DOPPLER ULTRASOUND LEFT LOWER EXTREMITY CLINICAL HISTORY: Left lower extremity pain and swelling COMPARISON STUDY: No previous studies for comparison. FINDINGS: The systolic pressure within the right brachial artery is 185 mmHg. The systolic pressure within the left brachial artery is millimeters of mercury. The posterior tibial systolic pressure in the right is 210 mmHg. Posterior tibial systolic pressure on the left is 176 mmHg. Dorsalis pedis systolic pressure on the right is 171 mmHg. The dorsalis pedis systolic pressure in the left is 172 mmHg. This yields ankle arm indices of 1.1 on the right and 0.95 on the left. There is triphasic flow within the left common femoral, superficial femoral, and popliteal arteries. There is triphasic flow within the posterior tibial peroneal and anterior tibial arteries. No high velocity jets are visualized. IMPRESSION: No evidence of left lower extremity arterial stenosis. Electronically signed by: Arnav Arevalo M.D. 06/11/2016 4:03 PM Dictated Date/Time: 06/11/2016 4:00 PM
[2016-06-11] MEDS ORDERED: ONDANSETRON INJ 2 MG/ML 2 ML VIAL IV PRN (17:00)
[2016-06-11] MEDS ORDERED: NITROGLYCERIN 0.4 MG SL PER TAB CHARGE SL PRN (17:00)
[2016-06-11] MEDS ORDERED: ZNTT/150 PO (17:05)
[2016-06-11 17:45] VITALS: Ht 193 cm; Wt 83.6 kg
[2016-06-11 18:15] VITALS: BP 167/88; PULSE 102; TEMP 36.4; O2SAT 97
[2016-06-11] MEDS ORDERED: MoRPHine SULFATE 2 MG/ML CARP IV PRN (18:45)
[2016-06-11 19:03] VITALS: BP 162/88; PULSE 84; TEMP 37; O2SAT 100
[2016-06-11] MEDS ORDERED: SODIUM CHLORIDE 0.9% 1000ML 1,000 ML IV SCH (19:15)
--- NOTE | 2016-06-11 19:21 | History and Physical ---
History & Physical Date & Time of Service: June 11, 2016 at 18:27 Chief Complaint: Dizziness Primary Care Physician: Vinnie Chand D.O. History of Present Illness Source: patient This is a 75 y/o male with PMHx of Afib on Coumadin, Hypothyroidism, Dyslipidemia and other problems as outlined below who presents to the ED c/o LLE hematoma x 6 days. Pt reports that 6 days ago he got a joseph horse in his left leg and rubbed it vigorously to relieve the spasms. The next morning he noticed LLE swelling and pain followed by extensive bruising. The bruise started in his upper leg and continued to increase in size every day. This morning, patient states the pain in his left leg had reached an 8/10 and he was having trouble ambulating as a result. Pt was seen by his PCP today and when he got up to leave the office he became very lightheaded and dizzy. He was then transported to the ED for further evaluation and treatment. Pt has a history of Afib on Coumadin. Per patient, his INR was 4.0 last weekend and 3.4 yesterday. Pt denies fever/chills, diaphoresis, chest pain, syncope, palpitations, SOB, abd pain, N/V, constipation, diarrhea, hematochezia, melena or dysuria. In the ED, BP is elevated but pt is otherwise stable. HgB 8.4. INR 1.7. LLE Venous US negative for DVT. LLE Arterial US negative for stenosis. Pt will be admitted for further evaluation and treatment. Past Medical/Surgical History Medical Problems: (1) Atrial fibrillation Status: Chronic (2) Dyslipidemia Status: Chronic (3) Hiatal hernia Status: Chronic (4) Hypothyroidism Status: Chronic Surgical Problems: (1) H/O vasectomy Status: Resolved (2) History of bilateral knee replacement Permanent Comment: Dr. Mayer 2011 and 2013 Status: Resolved (3) History of inguinal hernia repair Status: Resolved Family History Hypertension Social History Smoking Status: Never Smoker Alcohol Use: none Drug Use: none Marital Status: in relationship Housing status: lives alone Occupational Status: retired Immunizations History of Influenza Vaccine: N/A History of Tetanus Vaccine?: Unknown History of Pneumococcal: No History of Hepatitis B Vaccine: No Multi-Drug Resistant Organisms History of MDRO: No Allergies Coded Allergies: No Known Allergies (Unverified , 06/11/16) Home Medications Scheduled Acetaminophen (Tylenol), 2 TAB PO Q6 Aspirin (Aspirin Ec), 81 MG PO DAILY Atorvastatin (Lipitor), 20 MG PO DAILY Digoxin (Digoxin), 0.25 MG PO HS Levothyroxine Sodium (Synthroid), 88 MCG PO DAILY Ranitidine (Zantac), 150 MG PO BID Warfarin Sod (Coumadin), 1 TAB PO QAM Review of Systems Constitutional: + fatigue, + weakness, No chills, No fever, No sweats Eyes: No worsening of vision ENT: No hearing loss Respiratory: No cough, No shortness of breath Cardiovascular: No chest pain, No palpitations Abdomen: No GI bleeding, No constipation, No diarrhea, No nausea, No pain, No vomiting Musculoskeletal: + calf pain, + swelling Genitourinary - Male: No dysuria Neurologic: + weakness Psychiatric: No depression symptoms Endocrine: + fatigue Hematologic / Lymphatic: + abnormal bleeding/bruising (See HPI) Integumentary: + color change, No new/changing skin lesions Physical Exam Vital Signs Date Time Temp Pulse Resp B/P Pulse Ox O2 Delivery O2 Flow Rate FiO2 06/11/16 17:45 Room Air 06/11/16 17:30 87 20 154/87 96 Room Air 06/11/16 15:30 76 21 157/105 98 Room Air 06/11/16 14:23 99 Room Air 06/11/16 13:31 84 06/11/16 13:21 36.9 103 18 168/95 97 Room Air General Appearance: WD/WN, no apparent distress Head: normocephalic, atraumatic Eyes: normal inspection ENT: hearing grossly normal Neck: supple Respiratory/Chest: chest non-tender, lungs clear, normal breath sounds, no respiratory distress Cardiovascular: regular rate, rhythm, no murmur Abdomen/GI: normal bowel sounds, non tender, soft Back: normal inspection Extremities/Musculoskelatal: + pertinent finding (extensive LLE echhymosis extending from ankle to buttocks with mild swelling and tenderness to touch) Neurologic/Psych: alert, normal mood/affect, oriented x 3 Skin: normal color, warm/dry Diagnostics Laboratory Results Results Past 24 Hours Test 06/11/16 14:18 06/11/16 14:20 Range/Units Bedside Hemoglobin 8.2 14.0-18.0 g/dl Bedside Hematocrit 24 42-52 % Bedside Sodium 136 135-144 mEq/L Bedside Potassium 4.1 3.3-5.0 mEq/L Bedside Chloride 98 101-112 mEq/L Bedside Total CO2 25 24-31 mEq/l Anion Gap 19.0 5.0 3-11 mmol/L Bedside Blood Urea Nitrogen 11 7-18 mg/dl Bedside Creatinine 0.9 0.6-1.3 mg/dl Bedside Glucose (other) 139 70-99 mg/dl Bedside Ionized Calcium (Charli) 1.18 1.12-1.32 mmol/l White Blood Count 6.24 4.8-10.8 K/uL Red Blood Count 2.72 4.7-6.1 M/uL Hemoglobin 8.4 14.0-18.0 g/dL Hematocrit 25.9 42-52 % Mean Corpuscular Volume 95.2 80-100 fL Mean Corpuscular Hemoglobin 30.9 25-34 pg Mean Corpuscular Hemoglobin Concent 32.4 32-36 g/dl Platelet Count 229 130-400 K/uL Mean Platelet Volume 9.3 7.4-10.4 fL Neutrophils (%) (Auto) 83.0 % Lymphocytes (%) (Auto) 11.1 % Monocytes (%) (Auto) 4.6 % Eosinophils (%) (Auto) 0.8 % Basophils (%) (Auto) 0.3 % Neutrophils # (Auto) 5.18 1.4-6.5 K/uL Lymphocytes # (Auto) 0.69 1.2-3.4 K/uL Monocytes # (Auto) 0.29 0.11-0.59 K/uL Eosinophils # (Auto) 0.05 0-0.5 K/uL Basophils # (Auto) 0.02 0-0.2 K/uL RDW Standard Deviation 45.2 36.4-46.3 fL RDW Coefficient of Variation 13.0 11.5-14.5 % Immature Granulocyte % (Auto) 0.2 % Immature Granulocyte # (Auto) 0.01 0.00-0.02 K/uL Polychromasia 1+ Prothrombin Time 18.5 9.0-12.0 SECONDS Prothromb Time International Ratio 1.7 0.9-1.1 Activated Partial Thromboplast Time 31.7 21.0-31.0 SECONDS Partial Thromboplastin Ratio 1.2 Sodium Level 138 136-145 mmol/L Potassium Level 4.3 3.5-5.1 mmol/L Chloride Level 104 98-107 mmol/L Carbon Dioxide Level 29 21-32 mmol/L Blood Urea Nitrogen 12 7-18 mg/dl Creatinine 1.00 0.60-1.40 mg/dl Est Creatinine Clear Calc Drug Dose 75.3 ml/min Estimated GFR () 84.4 Estimated GFR (Non- 72.8 BUN/Creatinine Ratio 11.6 10-20 Random Glucose 138 70-99 mg/dl Calcium Level 8.7 8.5-10.1 mg/dl Total Bilirubin 0.8 0.2-1 mg/dl Direct Bilirubin 0.3 0-0.2 mg/dl Aspartate Amino Transf (AST/SGOT) 31 15-37 U/L Alanine Aminotransferase (ALT/SGPT) 25 12-78 U/L Alkaline Phosphatase 69 45-117 U/L Total Protein 6.6 6.4-8.2 gm/dl Albumin 3.2 3.4-5.0 gm/dl Lipase 237 73-393 U/L Digoxin Level 0.9 0.8-2.0 ng/ml Diagnostic Radiology LLE VENOUS US IMPRESSION: No evidence of left lower extremity DVT. LLE ARTERIAL US IMPRESSION: No evidence of left lower extremity arterial stenosis. EKG EKG: Afib at 84 bpm with T wave inversion in AvF; T wave inversion new finding when compared to EKG from 05/07/16 Impression Assessment and Plan SYMPTOMATIC ANEMIA 2* EXTENSIVE LLE HEMATOMA pt has extensive LLE hematoma with lightheadedness/dizziness when standing; pt on anticoagulation for Afib -admit to telemetry -vitals are stable -FOBT is negative in ED -Hgb currently 8.4 (was 12.1 last month); will continue to monitor with H&H q 8h -hold ASA and Coumadin -start gentle IVF -type and screen completed; will hold off on transfusion for now -pt appears to be hemodynamically stable -continue to monitor closely LLE HEMATOMA -extensive ecchymosis of LLE extending from ankle to buttocks -LLE Venous US negative for DVT -LLE Arterial US negative for stenosis -morphine PRN pain -consult ortho, Dr. Jha regarding possible drainage PAROXYSMAL AFIB -EKG: rate controlled Afib -holding Coumadin for now due to anemia/hematoma -monitor HYPOTHYROIDISM -cont levothyroxine DYSLIPIDEMIA -cont statin DVT PROPHYLAXIS -SCDs only in setting of GI bleed CODE STATUS -FULL CODE status per discussion with patient upon admission DISPO Pt seen in collaboration with Dr Garcia. Please see his addendum for further details. Thanks! -Of note: patient will be followed by Dr. Alfaro starting tomorrow AM. Advanced Directives Existing Living Will: No Existing Power of Marine Diesel Technician: No VTE Prophylaxis VTE Risk Assessment Done? Y/N: Yes Risk Level: High
--- NOTE | 2016-06-11 19:27 | History and Physical ---
History & Physical Date of Service June 11, 2016. History & Physical This is a 75 year old male with PMH of atrial fibrillation on Coumadin, recent hx. of TIA, hypothyroidism presents with a L upper and posterior thigh hematoma ; states that he developed some pain last weekend at the L leg and he rubbed it vigorously; which caused the hematoma. He had seen his outpatient PCP and was told to hold his Coumadin, due to INR being elevated at 4.0. He had a nonvascular U/S of the LE and it showed a large hematoma. He was referred to orthopedic, Dr. Mayer, but while at his PCP, he developed dizziness when standing and was told to come straight to the ER. On presentation, his Hgb level drawn was around 8.2 (around 13 on 05/07). He denies chest pain/ palpitations - pain improved with morphine, no other symptoms while laying. VITALS: Last Vital Signs Documentation Date Time Temp Pulse Resp B/P Pulse Ox O2 Delivery O2 Flow Rate FiO2 06/11/16 18:15 36.4 102 16 167/88 97 Room Air GEN: no acute distress CVS: +irregularly irregular rhythm LUNGS: CTA b/l, no wheezing EXT: +extensive hematoma, firm on palpation, posterior/medial/upper L thigh/ down to knee Symptomatic Anemia secondary to Hematoma patient presents with hematoma, and low Hgb baseline around 13, presents with Hgb of 8 hold Coumadin, INR ~ 1.7 today arterial and venous U/S negative; nonvascular U/S as outpatient showed large hematoma orthopedic consulted H/H q6, transfuse PRN
[2016-06-11 20:00] VITALS: O2SAT 97
[2016-06-11 20:13] LABS: URINE APPEARANCE CLEAR (CLEAR); URINE BILIRUBIN NEG (NEG); URINE COLOR YELLOW; URINE NITRITE NEG (NEG); URINE PH 7.5 (4.5-7.5); URINE SPECIFIC GRAVITY 1.012 (1.000-1.030); UROBILINOGEN NEG (NEG)
[2016-06-11 20:15] LABS: MANUAL MICROSCOPIC REQUIRED? NO; REVIEW REQ? NO
[2016-06-11 20:30] LABS: HEMATOCRIT 24.6 % (42-52)
[2016-06-11] MEDS: RANITIDINE HCL 150 MG TAB PO SCH (20:46)
[2016-06-11] MEDS: DIGOXIN 0.25 MG TAB PO SCH (20:47)
[2016-06-11 23:53] VITALS: BP 131/62; PULSE 91; TEMP 37.1; O2SAT 95
[2016-06-12] VITALS (10 sets, daily range): BP systolic 126–160; BP diastolic 63–88; PULSE 79–93; TEMP 36.6–37.2; O2SAT 92–97
[2016-06-12] MEDS: LEVOTHYROXINE 88 MCG TAB PO SCH (05:44)
[2016-06-12 05:49] LABS: HEMATOCRIT 23.1 % (42-52); MEAN CELL VOLUME 95.5 fL (80-100); MEAN CORPUSCULAR HEMOGLOBIN 31.8 pg (25-34); MEAN CORPUSCULAR HGB CONC 33.3 g/dl (32-36); PLATELET COUNT 223 K/uL (130-400); RED BLOOD COUNT 2.42 M/uL (4.7-6.1); WHITE BLOOD COUNT 5.14 K/uL (4.8-10.8)
[2016-06-12 05:59] LABS: INR 1.4 (0.9-1.1); PROTHROMBIN TIME (PATIENT) 14.9 SECONDS (9.0-12.0)
[2016-06-12 06:15] LABS: BUN/CREATININE RATIO 13.5 (10-20); CALCIUM 8.1 mg/dl (8.5-10.1); CREATININE 0.97 mg/dl (0.60-1.40)
[2016-06-12] MEDS: RANITIDINE HCL 150 MG TAB PO SCH ×2 (07:56→20:36)
[2016-06-12] MEDS: ATORVASTATIN 20 MG TAB PO SCH (07:56)
--- NOTE | 2016-06-12 11:36 | ORTHOPEDIC CONSULTATION ---
DATE OF CONSULTATION: 06/12/2016 PHYSICAL EXAMINATION: Left knee exam shows no evidence of effusion. He has no evidence of septic joint. He has supple motion of the left knee. Left calf exam shows no tenderness about his calf. He has no cords and no significant swelling in his calf. He has a minor amount of ecchymosis extending towards the calf. He can flex and extend the ankle. Foot is warm and well perfused.
--- NOTE | 2016-06-12 11:41 | ORTHOPEDIC CONSULTATION ---
DATE OF CONSULTATION: 06/12/2016 ORTHOPEDIC SURGERY CONSULTATION REASON FOR CONSULTATION: Special attention to left thigh hematoma. HISTORY OF PRESENT ILLNESS: This is a 75-year-old gentleman who is well known to our group, he is status post bilateral knee replacements by Dr. Mayer in the past. He does have a history of a similar previous hematoma many years ago which did resolve with nonoperative treatment. He notes that he had a Charley horse in his leg, which he rubbed vigorously, he had bleeding in the thigh region. He was seen by his outpatient PCP and instructed to hold his Coumadin as INR was elevated at 4.0. He subsequently developed lightheadedness and is admitted to the hospital. Currently, he is getting blood. Hemoglobin upon admission was 8.2. Review of arterial and venous Doppler show no evidence of clot. Outpatient nonvascular ultrasound did show a large hematoma. PAST MEDICAL HISTORY: Atrial fibrillation, dyslipidemia, hiatal hernia, hypothyroidism. PAST SURGICAL HISTORY: History of vasectomy, history of bilateral knee replacements by Dr. Mayer in 2011 and 2013, history inguinal hernia repair. MEDICATIONS: Reviewed and include Coumadin which is currently being held. OBJECTIVE: Left thigh examination does show diffuse hematoma and ecchymosis throughout the thigh. I do not detect any fluctuance. I do not detect any abscess. He has no organized fluid collection that is easily palpable or amenable to drainage. He has an induration area of ecchymosis. left knee exam: no joint effusion, no septic joint. left calf exam: no knots, no tenderness. no fluctuance, no abscess, no hematoma LABORATORY STUDIES: Hemoglobin this morning 7.7. INR is 1.4. ASSESSMENT: 1. Left thigh hematoma. 2. History of anticoagulation due to atrial fibrillation. 3. Status post bilateral total knee replacements by Dr. Mayer. PLAN: I discussed treatment at this point. From my standpoint, he may be weightbearing as tolerated. I do not see any surgical treatment or intervention required at this point in time and he may try warm compresses for hematoma. Will sign off, please call if there are any further questions. At this point, he does not require further orthopedic followup. RANDALL
[2016-06-12] MEDS: ACETAMINOPHEN 325 MG TAB PO PRN (19:27)
--- NOTE | 2016-06-12 19:37 | Progress Note ---
Medicine Progress Note Date & Time of Visit: June 12, 2016 at 10:40 . Subjective Admitted yesterday with spontaneous hematoma LLE on warfarin therapy. Feels better today. Less LLE pain. Lightheadedness improved. No chest pain. No cough or SOB. No nausea or vomiting. . Objective Last 8 Hrs Date Time Temp Pulse Resp B/P Pulse Ox O2 Delivery O2 Flow Rate FiO2 06/12/16 16:10 Room Air 06/12/16 16:00 Room Air 06/12/16 14:59 36.8 79 18 130/63 96 Room Air 06/12/16 12:00 Room Air 06/12/16 11:35 36.6 80 16 153/83 96 Room Air 155/85 131/78 Physical Exam: General- no distress Neck- no JVD Lungs- clear Heart- irregular Abdomen- + BS, soft, nontender Extremities- swelling, ecchymoses left medial thigh; 1+ left pretibial edema; pedal pulses intact Neuro- alert . Laboratory Results: Last 24 Hours Test 06/11/16 19:50 06/11/16 20:22 06/12/16 05:15 Urine Color YELLOW Urine Appearance CLEAR Urine pH 7.5 Urine Specific [place] 1.012 Urine Protein NEG Urine Glucose (UA) NEG Urine Ketones 1+ Urine Occult Blood NEG Urine Nitrite NEG Urine Bilirubin NEG Urine Urobilinogen NEG Urine Leukocyte Esterase NEG Hemoglobin 8.2 g/dL 7.7 g/dL Hematocrit 24.6 % 23.1 % White Blood Count 5.14 K/uL Red Blood Count 2.42 M/uL Mean Corpuscular Volume 95.5 fL Mean Corpuscular Hemoglobin 31.8 pg Mean Corpuscular Hemoglobin Concent 33.3 g/dl RDW Standard Deviation 45.2 fL RDW Coefficient of Variation 13.1 % Platelet Count 223 K/uL Mean Platelet Volume 9.0 fL Prothrombin Time 14.9 SECONDS Prothromb Time International Ratio 1.4 Sodium Level 140 mmol/L Potassium Level 4.0 mmol/L Chloride Level 106 mmol/L Carbon Dioxide Level 28 mmol/L Anion Gap 6.0 mmol/L Blood Urea Nitrogen 13 mg/dl Creatinine 0.97 mg/dl Est Creatinine Clear Calc Drug Dose 77.6 ml/min Estimated GFR () 87.5 Estimated GFR (Non- 75.5 BUN/Creatinine Ratio 13.5 Random Glucose 89 mg/dl Calcium Level 8.1 mg/dl Assessment & Plan HEMATOMA LEFT LOWER EXTREMITY Spontaneous hematoma left thigh associated with slightly elevated INR. Orthopedics consulted. Conservative management. ACUTE BLOOD LOSS ANEMIA Hgb 8.4 --> 7.7. Receiving 1 unit of pRBC's today. CHRONIC ATRIAL FIBRILLATION Rate controlled. Need to hold anticoagulants due to LLE hematoma. VTE PROPHYLAXIS No anticoagulants due to LLL hematoma. SCD's. Ambulate. DISPOSITION Expected discharge to home. Family Medicine follow-up with Dr. Vinnie Chand. Cardiology follow-up with Dr. Galarza. . Current Inpatient Medications: Current Inpatient Medications Medications (Trade) Dose Ordered Sig/Jimmy Route Start Time Stop Time Status Last Admin Dose Admin Acetaminophen (Tylenol Tab) 650 mg Q4H PRN PO 06/11/16 17:00 07/11/16 16:59 06/12/16 19:27 650 MG Ondansetron HCl (Zofran Inj) 4 mg Q6H PRN IV 06/11/16 17:00 07/11/16 16:59 Nitroglycerin (Nitrostat Tab) 0.4 mg UD PRN SL 06/11/16 17:00 07/11/16 16:59 Atorvastatin Calcium (Lipitor Tab) 20 mg DAILY PO 06/12/16 09:00 07/12/16 08:59 06/12/16 07:56 20 MG Digoxin (Lanoxin Tab) 0.25 mg HS PO 06/11/16 21:00 07/11/16 20:59 06/11/16 20:47 0.25 MG Levothyroxine Sodium (Synthroid Tab) 88 mcg DAILYBB PO 06/12/16 06:00 07/12/16 06:59 06/12/16 05:44 88 MCG Ranitidine HCl (zANTac TAB) 150 mg BID PO 06/11/16 21:00 07/11/16 20:59 06/12/16 07:56 150 MG Morphine Sulfate (MoRPHine SULFATE INJ) 2 mg Q4H PRN IV 06/11/16 18:45 06/25/16 18:44
[2016-06-12] MEDS: DIGOXIN 0.25 MG TAB PO SCH (20:37)
[2016-06-13] VITALS (8 sets, daily range): BP systolic 108–146; BP diastolic 55–84; PULSE 71–108; TEMP 36.4–37.3; O2SAT 94–99
[2016-06-13 03:01] LABS: MEAN CORPUSCULAR HEMOGLOBIN 32.7 pg (25-34); MEAN CORPUSCULAR HGB CONC 34.8 g/dl (32-36); MEAN PLATELET VOLUME 8.7 fL (7.4-10.4); PLATELET COUNT 228 K/uL (130-400); RED BLOOD COUNT 2.66 M/uL (4.7-6.1); WHITE BLOOD COUNT 5.07 K/uL (4.8-10.8)
[2016-06-13 03:10] LABS: INR 1.2 (0.9-1.1); PARTIAL THROMBOPLASTIN RATIO 1.1
[2016-06-13 03:17] LABS: BUN/CREATININE RATIO 18.3 (10-20); CALCIUM 8.1 mg/dl (8.5-10.1); CREATININE 0.94 mg/dl (0.60-1.40); POTASSIUM 4.1 mmol/L (3.5-5.1)
[2016-06-13] MEDS: LEVOTHYROXINE 88 MCG TAB PO SCH (05:53)
[2016-06-13] MEDS: ACETAMINOPHEN 325 MG TAB PO PRN (05:55)
[2016-06-13] MEDS: ATORVASTATIN 20 MG TAB PO SCH (08:55)
[2016-06-13] MEDS: RANITIDINE HCL 150 MG TAB PO SCH ×2 (08:55→21:01)
[2016-06-13] MEDS ORDERED: POLYETHYLENE (MIRALAX) 17 GM PACK PO ONE (18:00)
[2016-06-13] MEDS ORDERED: POLYETHYLENE (MIRALAX) 17 GM PACK PO PRN (18:00)
--- NOTE | 2016-06-13 18:03 | Progress Note ---
Medicine Progress Note Date & Time of Visit: June 13, 2016 at 13:10 . Subjective No fever. No chest pain. No cough or SOB. No N/V. Last reported bowel movement prior to admission. LLE pain not to bad when leg elevated, but significant when standing or ambulating. . Objective Last 8 Hrs Date Time Temp Pulse Resp B/P Pulse Ox O2 Delivery O2 Flow Rate FiO2 06/13/16 16:00 Room Air 06/13/16 15:53 36.6 87 16 108/55 96 Room Air 06/13/16 12:00 Room Air 06/13/16 11:05 36.4 94 20 141/84 97 Room Air Physical Exam: General- no distress Neck- no JVD Lungs- clear Heart- irregular Abdomen- + BS, soft, nontender Extremities- swelling, ecchymoses left medial thigh; 1+ left pretibial edema; pedal pulses intact Neuro- alert . Laboratory Results: Last 24 Hours Test 06/12/16 20:02 06/13/16 02:53 06/13/16 11:03 Bedside Glucose 126 mg/dl 93 mg/dl White Blood Count 5.07 K/uL Red Blood Count 2.66 M/uL Hemoglobin 8.7 g/dL Hematocrit 25.0 % Mean Corpuscular Volume 94.0 fL Mean Corpuscular Hemoglobin 32.7 pg Mean Corpuscular Hemoglobin Concent 34.8 g/dl RDW Standard Deviation 50.0 fL RDW Coefficient of Variation 15.1 % Platelet Count 228 K/uL Mean Platelet Volume 8.7 fL Prothrombin Time 13.0 SECONDS Prothromb Time International Ratio 1.2 Activated Partial Thromboplast Time 28.5 SECONDS Partial Thromboplastin Ratio 1.1 Sodium Level 142 mmol/L Potassium Level 4.1 mmol/L Chloride Level 106 mmol/L Carbon Dioxide Level 29 mmol/L Anion Gap 7.0 mmol/L Blood Urea Nitrogen 17 mg/dl Creatinine 0.94 mg/dl Est Creatinine Clear Calc Drug Dose 82.0 ml/min Estimated GFR () 90.9 Estimated GFR (Non- 78.4 BUN/Creatinine Ratio 18.3 Random Glucose 94 mg/dl Calcium Level 8.1 mg/dl Assessment & Plan HEMATOMA LEFT LOWER EXTREMITY Spontaneous hematoma left thigh associated with slightly elevated INR. Orthopedics consulted. Conservative management recommended. Consult PT for ambulation. ACUTE BLOOD LOSS ANEMIA Hgb 8.4 --> 7.7 --> 8.7 (after receiving 1 unit of pRBC's 06/12/16). CHRONIC ATRIAL FIBRILLATION Rate controlled. Holding anticoagulants due to LLE hematoma. VTE PROPHYLAXIS No anticoagulants due to LLL hematoma. SCD's. Ambulate. DISPOSITION Expected discharge to home. Family Medicine follow-up with Dr. Vinnie Chand. Cardiology follow-up with Dr. Galarza. . Current Inpatient Medications: Current Inpatient Medications Medications (Trade) Dose Ordered Sig/Jimmy Route Start Time Stop Time Status Last Admin Dose Admin Acetaminophen (Tylenol Tab) 650 mg Q4H PRN PO 06/11/16 17:00 07/11/16 16:59 06/13/16 05:55 650 MG Ondansetron HCl (Zofran Inj) 4 mg Q6H PRN IV 06/11/16 17:00 07/11/16 16:59 Nitroglycerin (Nitrostat Tab) 0.4 mg UD PRN SL 06/11/16 17:00 07/11/16 16:59 Atorvastatin Calcium (Lipitor Tab) 20 mg DAILY PO 06/12/16 09:00 07/12/16 08:59 06/13/16 08:55 20 MG Digoxin (Lanoxin Tab) 0.25 mg HS PO 06/11/16 21:00 07/11/16 20:59 06/12/16 20:37 0.25 MG Levothyroxine Sodium (Synthroid Tab) 88 mcg DAILYBB PO 06/12/16 06:00 07/12/16 06:59 06/13/16 05:53 88 MCG Ranitidine HCl (zANTac TAB) 150 mg BID PO 06/11/16 21:00 07/11/16 20:59 06/13/16 08:55 150 MG Morphine Sulfate (MoRPHine SULFATE INJ) 2 mg Q4H PRN IV 06/11/16 18:45 06/25/16 18:44
[2016-06-13] MEDS: DIGOXIN 0.25 MG TAB PO SCH (21:01)
[2016-06-14 03:28] VITALS: BP 147/86; PULSE 74; TEMP 36.9; O2SAT 95
[2016-06-14] MEDS: ACETAMINOPHEN 325 MG TAB PO PRN ×2 (04:59→15:43)
[2016-06-14] MEDS: LEVOTHYROXINE 88 MCG TAB PO SCH (05:33)
[2016-06-14 05:42] LABS: HEMATOCRIT 28.7 % (42-52)
[2016-06-14 07:43] VITALS: BP 138/72; PULSE 73; TEMP 36.8; O2SAT 95
[2016-06-14] MEDS: RANITIDINE HCL 150 MG TAB PO SCH (08:00)
[2016-06-14] MEDS: ATORVASTATIN 20 MG TAB PO SCH (08:00)
--- NOTE | 2016-06-14 08:26 | Clinical Documentation Query ---
CLINICAL DOCUMENTATION QUERY 75 year old male with a history of atrial fibrillation and on Coumadin who presents to the Emergency Room with complaints of a worsening left leg hematoma. 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 In your clinical opinion is this patient being managed for: ( x ) LLE spontaneous hematoma due to Warfarin therapy treated with PRBC's and DC of Warfarin. ( ) Other explanation of clinical findings (Please Explain) ( ) Unable to determine (Please Define) ( ) Need to Discuss ( ) Not Agree The medical record reflects the following clinical findings, treatment, and risk factors. Clinical Indicators: Spontaneous hematoma of left thigh. INR 1.7, Hgb 8.2, Hct 24, Treatment: DC of home Warfarin dosing, 1 unit of PRBC's Risk Factors: Warfarin therapy Please clarify and document your clinical opinion in the progress notes and discharge summary. Terms such as "probable", "suspected", "likely", "questionable", "possible", or "still to be ruled out" are acceptable. IF IN AGREEMENT, YOU MUST DOCUMENT ABOVE DIAGNOSTIC STATEMENT IN DAILY PROGRESS NOTES AND DISCHARGE SUMMARY. This document is not part of the patient's record. Thank You, Melvin Levine, RN [phone]
[2016-06-14 11:57] VITALS: BP 154/79; PULSE 82; TEMP 36.5; O2SAT 94
--- NOTE | 2016-06-14 15:38 | Progress Note ---
Medicine Progress Note Date & Time of Visit: June 14, 2016 at 15:39 . Subjective Less discomfort left leg. Ambulating without difficulty. No CP or SOB. . Objective Last 8 Hrs Date Time Temp Pulse Resp B/P Pulse Ox O2 Delivery O2 Flow Rate FiO2 06/14/16 12:00 Room Air 06/14/16 11:57 36.5 82 18 154/79 94 Room Air 06/14/16 08:00 Room Air 06/14/16 07:43 36.8 73 16 138/72 95 Room Air Physical Exam: General- no distress Neck- no JVD Lungs- clear Heart- irregular Abdomen- + BS, soft, nontender Extremities- swelling and ecchymoses left medial thigh; trace-1+ left pretibial edema; pedal pulses intact Neuro- alert . Laboratory Results: Last 24 Hours Test 06/14/16 05:08 Hemoglobin 9.2 g/dL Hematocrit 28.7 % Assessment & Plan HEMATOMA LEFT LOWER EXTREMITY Spontaneous hematoma left thigh associated with INR ~ 4 on warfarin. Orthopedics consulted. Conservative management recommended. Ambulating without difficulty. ACUTE BLOOD LOSS ANEMIA Hgb 8.4 --> 7.7 --> 9.2 (after receiving 1 unit of pRBC's 06/12/16). Will reabsorb Fe from hematoma, so no need for oral supplementation. CHRONIC ATRIAL FIBRILLATION Rate controlled. Holding anticoagulants due to LLE hematoma. Decision on when to resume anticoagulation deferred to Cardiology and Anticoagulation Clinic. 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 Has been on antiplatelet therapy with aspirin and anticoagulated with warfarin for AF. Continue ASA; warfarin on hold as discussed above. VTE PROPHYLAXIS No anticoagulants due to LLL hematoma. SCD's. Ambulating. DISPOSITION Discharge to home. Family Medicine follow-up with Dr. Vinnie Chand. Cardiology follow-up with Dr. Galarza. . Consultants: Ortho with Dr. Bhardwaj. . Procedures: US lower extremity cardiac monitoring transfusion 1 unit pRBC's . Current Inpatient Medications: Current Inpatient Medications Medications (Trade) Dose Ordered Sig/Jimmy Route Start Time Stop Time Status Last Admin Dose Admin Acetaminophen (Tylenol Tab) 650 mg Q4H PRN PO 06/11/16 17:00 07/11/16 16:59 06/14/16 04:59 650 MG Ondansetron HCl (Zofran Inj) 4 mg Q6H PRN IV 06/11/16 17:00 07/11/16 16:59 Nitroglycerin (Nitrostat Tab) 0.4 mg UD PRN SL 06/11/16 17:00 07/11/16 16:59 Atorvastatin Calcium (Lipitor Tab) 20 mg DAILY PO 06/12/16 09:00 07/12/16 08:59 06/14/16 08:00 20 MG Digoxin (Lanoxin Tab) 0.25 mg HS PO 06/11/16 21:00 07/11/16 20:59 06/13/16 21:01 0.25 MG Levothyroxine Sodium (Synthroid Tab) 88 mcg DAILYBB PO 06/12/16 06:00 07/12/16 06:59 06/14/16 05:33 88 MCG Ranitidine HCl (zANTac TAB) 150 mg BID PO 06/11/16 21:00 07/11/16 20:59 06/14/16 08:00 150 MG Morphine Sulfate (MoRPHine SULFATE INJ) 2 mg Q4H PRN IV 06/11/16 18:45 06/25/16 18:44 Polyethylene (Miralax Powder Packet) 17 gm DAILY PRN PO 06/13/16 18:00 07/13/16 17:59 06/14/16 10:04 17 GM
[2016-06-14 15:46] VITALS: BP 148/81; PULSE 81; TEMP 36.4; O2SAT 97
--- NOTE | 2016-06-14 15:47 | Discharge Instructions ---
Discharge Instructions Date of Service June 14, 2016. Admission Reason for Admission: hematoma left leg, anemia . Discharge Discharge Diagnosis / Problem: hematoma left leg, anemia Discharge Goals Goal(s): Decrease discomfort, Improve function Activity Recommendations Activity Limitations: as noted below Lifting Limitations: gradually increase as tolerated Exercise/Sports Limitations: gradually increase as tolerated . Instructions / Follow-Up Instructions / Follow-Up APPOINTMENTS: CARDIOLOGY 06/15/2016 10:45 AM Tashi Galarza, DO ANTICOAGULATION 06/18/2016 11:45 AM [facility] 11/29/2016 4:00 PM Vinnie Chand, DO INSTRUCTIONS: You had a large hematoma in your left thigh. You will have swelling of your leg; elevation will help. Avoid strenuous activity or heavy lifting until leg heals. Do gentle passive range of motion exercises for your left knee. Heating pad may help with leg pain. Discuss blood thinner strategy with Dr. Galarza and Josephine Baker. Hold warfarin until instructed to resume. Continue low dose aspirin 81 mg daily to prevent strokes. Seek medical attention if you have: * temperature above 101 * chest pain or trouble breathing * abdominal pain, nausea, vomiting * diarrhea, dark stools or bloody stools * any unanswered questions or concerns Call 911 if symptoms are severe. Call if you have any questions or problems. My cell # is [phone]. You can also reach a [facility] hospitalist on duty at [facility] 24 hours a day by calling [phone]. Please take good care of yourself. Chaitanya Alfaro . Current Hospital Diet Patient's current hospital diet: Regular Diet Discharge Diet Recommended Diet: AHA Diet (Heart Healthy) Pending Studies Studies pending at discharge: no Laboratory Results Item Value Date Time Hemoglobin 9.2 g/dL L 06/14/16 0508 Medical Emergencies . Who to Call and When: Medical Emergencies: If at any time you feel your situation is an emergency, please call 911 immediately. . Non-Emergent Contact Non-Emergency issues call your: Primary Care Provider, Head Custodian . . "Provider Documentation" section prepared by Chaitanya Alfaro. . VTE Core Measure Inpt VTE Proph given/why not?: SCD's
[2016-06-14 16:00] VITALS: O2SAT 97
[2016-06-14 16:37] VITALS: BP 148/81; PULSE 81; TEMP 36.4; O2SAT 97
--- NOTE | 2016-06-14 22:01 | Discharge Summary ---
Discharge Summary Date of Service June 14, 2016. Discharge Summary Admission Date: June 11, 2016 at 17:03 Discharge Date: June 14, 2016 Discharge Disposition: Home Principal Diagnosis: spontaneous hematoma left lower extremity due to warfarin therapy acute blood loss anemia . Secondary Diagnoses/Problems: Chronic Medical Problems: (1) Atrial fibrillation Status: Chronic (2) Cerebrovascular disease Permanent Comment: history TIA's Status: Chronic (3) Dyslipidemia Status: Chronic (4) Hiatal hernia Status: Chronic (5) Hypothyroidism Status: Chronic Surgical Problems: (1) H/O vasectomy Status: Chronic (2) History of bilateral knee replacement Permanent Comment: Dr. Mayer 2011 and 2013 Status: Chronic (3) History of inguinal hernia repair Status: Chronic . Procedures: US lower extremity cardiac monitoring transfusion 1 unit pRBC's . Consultations: Ortho with Dr. Bhardwaj. . Medication Reconciliation Continued Medications: Acetaminophen (Tylenol) 500 Mg Tab 2 TAB PO Q6 for 2 Days, #20 TAB 3 Refills Aspirin (Aspirin Ec) 81 Mg Tab 81 MG PO DAILY Atorvastatin (Lipitor) 20 Mg Tab 20 MG PO DAILY for 90 Days, #90 TAB Digoxin (Digoxin) 0.25 Mg Tab 0.25 MG PO HS Levothyroxine Sodium (Synthroid) 88 Mcg Tab 88 MCG PO DAILY, TAB Ranitidine (Zantac) 150 Mg Tab 150 MG PO BID, TAB Discontinued Medications: Warfarin Sod (Coumadin) 10 Mg Tab 1 TAB PO QAM for 30 Days, #30 TAB Admission Information HPI (per Admitting provider): This is a 75 y/o male with PMHx of Afib on Coumadin, Hypothyroidism, Dyslipidemia and other problems as outlined below who presents to the ED c/o LLE hematoma x 6 days. Pt reports that 6 days ago he got a joseph horse in his left leg and rubbed it vigorously to relieve the spasms. The next morning he noticed LLE swelling and pain followed by extensive bruising. The bruise started in his upper leg and continued to increase in size every day. This morning, patient states the pain in his left leg had reached an 8/10 and he was having trouble ambulating as a result. Pt was seen by his PCP today and when he got up to leave the office he became very lightheaded and dizzy. He was then transported to the ED for further evaluation and treatment. Pt has a history of Afib on Coumadin. Per patient, his INR was 4.0 last weekend and 3.4 yesterday. Pt denies fever/chills, diaphoresis, chest pain, syncope, palpitations, SOB, abd pain, N/V, constipation, diarrhea, hematochezia, melena or dysuria. In the ED, BP is elevated but pt is otherwise stable. HgB 8.4. INR 1.7. LLE Venous US negative for DVT. LLE Arterial US negative for stenosis. Pt will be admitted for further evaluation and treatment. . Physical Exam (per Admitting): General Appearance: WD/WN, no apparent distress Head: normocephalic, atraumatic Eyes: normal inspection ENT: hearing grossly normal Neck: supple Respiratory/Chest: chest non-tender, lungs clear, normal breath sounds, no respiratory distress Cardiovascular: regular rate, rhythm, no murmur Abdomen/GI: normal bowel sounds, non tender, soft Back: normal inspection Extremities/Musculoskelatal: + pertinent finding (extensive LLE echhymosis extending from ankle to buttocks with mild swelling and tenderness to touch) Neurologic/Psych: alert, normal mood/affect, oriented x 3 Skin: normal color, warm/dry Hospital Course HEMATOMA LEFT LOWER EXTREMITY Presented with LLE pain and swelling associated with weakness and lightheadedness. Found to have spontaneous hematoma left thigh associated with INR ~ 4 on warfarin. Orthopedics consulted. Conservative management recommended. Management of anemia as discussed below. Ambulating without difficulty. ACUTE BLOOD LOSS ANEMIA Hgb 8.4 --> 7.7 --> 9.2 (after receiving 1 unit of pRBC's 06/12/16). Will reabsorb Fe from hematoma, so no need for oral supplementation. CHRONIC ATRIAL FIBRILLATION Rate controlled. Holding anticoagulants due to LLE hematoma. Decision on when to resume anticoagulation deferred to [facility]iology [facility]tico[facility] Clinic. 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 Has been on antiplatelet therapy with aspirin and anticoagulated with warfarin for AF. Continue ASA; warfarin on hold as discussed above. VTE PROPHYLAXIS No anticoagulants due to LLL hematoma. SCD's. Ambulating. DISPOSITION Discharge to home. Family Medicine follow-up with Dr. Vinnie Chand. Cardiology follow-up with Dr. Galarza. . Total time spent on discharge = 35 min. This includes examination of the patient, discharge planning, medication reconciliation, and communication with other providers. . Discharge Instructions Date of Service June 14, 2016. Admission Reason for Admission: hematoma left leg, anemia . Discharge Discharge Diagnosis / Problem: hematoma left leg, anemia Discharge Goals Goal(s): Decrease discomfort, Improve function Activity Recommendations Activity Limitations: as noted below Lifting Limitations: gradually increase as tolerated Exercise/Sports Limitations: gradually increase as tolerated . Instructions / Follow-Up Instructions / Follow-Up APPOINTMENTS: CARDIOLOGY 06/15/2016 10:45 AM Tashi Galarza, DO ANTICOAGULATION 06/18/2016 11:45 AM [facility] 11/29/2016 4:00 PM Vinnie Chand, DO INSTRUCTIONS: You had a large hematoma in your left thigh. You will have swelling of your leg; elevation will help. Avoid strenuous activity or heavy lifting until leg heals. Do gentle passive range of motion exercises for your left knee. Heating pad may help with leg pain. Discuss blood thinner strategy with Dr. Galarza and Josephine Baker. Hold warfarin until instructed to resume. Continue low dose aspirin 81 mg daily to prevent strokes. Seek medical attention if you have: * temperature above 101 * chest pain or trouble breathing * abdominal pain, nausea, vomiting * diarrhea, dark stools or bloody stools * any unanswered questions or concerns Call 911 if symptoms are severe. Call if you have any questions or problems. My cell # is [phone]. You can also reach a [facility] hospitalist on duty at [facility] 24 hours a day by calling [phone]. Please take good care of yourself. Chaitanya Alfaro . Current Hospital Diet Patient's current hospital diet: Regular Diet Discharge Diet Recommended Diet: AHA Diet (Heart Healthy) Pending Studies Studies pending at discharge: no Laboratory Results Item Value Date Time Hemoglobin 9.2 g/dL L 06/14/16 5560 Medical Emergencies . Who to Call and When: Medical Emergencies: If at any time you feel your situation is an emergency, please call 911 immediately. . Non-Emergent Contact Non-Emergency issues call your: Primary Care Provider, Safety Physician . . "Provider Documentation" section prepared by Chaitanya Alfaro. . VTE Core Measure Inpt VTE Proph given/why not?: SCD's Additional Copies To Tashi Galarza, DO; Vinnie Chand, SkylerO.
== END 2016-06-14 16:50 | disposition home or self-care (01) | DRG 813 ==
LOC: ENRESERVDT → ENRESERVTM → EDBD 13:16 → C.EDA 13:17 → C.2T 17:03
PROVIDERS: ADMIT Family Medicine; ATTEND Hospitalist
DX: D68.32 Hemorrhagic disorder due to extrinsic circulating anticoagulants (principal); D62 Acute posthemorrhagic anemia; S80.12XA Contusion of left lower leg, initial encounter; X58.XXXA Exposure to other specified factors, initial encounter; I48.0 Paroxysmal atrial fibrillation; I48.2 Chronic atrial fibrillation; E03.9 Hypothyroidism, unspecified; E78.5 Hyperlipidemia, unspecified; Z86.73 Personal history of transient ischemic attack (TIA), and cerebral infarction without residual deficits; Z96.653 Presence of artificial knee joint, bilateral; Z79.01 Long term (current) use of anticoagulants; Z79.82 Long term (current) use of aspirin; Z79.899 Other long term (current) drug therapy

== ENCOUNTER 2018-09-11 16:34 | Inpatient (IN) ==
--- OUTSIDE RECORDS SUMMARY | 2018-09-11 16:37 | External Medical Summary | Continuity of Care Document ---
:1940 Author Name Colin M.Skyler Address Unavailable Unavailable , Care Team Providers Name Role Phone Unavailable Unavailable Unavailable PCP, UNKNOWN Unavailable Unavailable Unavailable Unavailable Unavailable Problems Memory loss (780.93) (R41.3) Transient ischemic attack (435.9) (G45.9) Multiple pulmonary nodules (793.19) (R91.8) Contusion Of The Right Leg With Intact Skin Surface (924.10) A Fall (E888.9) Nonvenomous Insect Bite (E906.4) Reported Tests: White Blood Cell Count Low Constipation (564.00) (K59.00) Chronic cerebral ischemia (437.1) (I67.82) Osteoarthritis of knee (715.36) (M17.10) Atrial fibrillation (427.31) (I48.91) Cerebral arterial aneurysm (437.3) (I67.1) Inguinal hernia (550.90) (K40.90) Hypothyroidism (244.9) (E03.9) Hyperlipidemia (272.4) (E78.5) Vertigo (780.4) (R42) Abnormal blood chemistry (790.6) (R79.9) Hypertension (401.9) (I10) Allergies and Adverse Reactions No Known Drug Allergies (Allergy) Medications Medications not documented Procedures History of Surgery Spermatic Cord Excision Of Hydrocele Status: Completed History of Total Knee Arthroplasty Statu s: Completed Immunizations Tetanus On: Jan-2007 Fluzone INJ On: 30-Nov-2011 11:58 Lot #: [id number], SANOFI PASTEUR Family History Father Family history of Cerebral Artery Aneurysm Status: Active Social History - Smoking Status Never smoker Plan of Treatment Planned Observations Planned Goals not documented Results No Known Results Results not documented
[2018-09-11] MEDS ORDERED: LABETALOL HCL IV 5 MG/ML 20ML IV STA (16:52)
[2018-09-11 17:04] LABS: Basophils # (auto) 0.03 K/uL (0-0.2); Basophils % (auto) 0.6 %; Eosinophils # (auto) 0.09 K/uL (0-0.5); Eosinophils % (auto) 1.9 %; Hematocrit (blood only) 41.8 % (42-52); Hemoglobin 14.4 g/dL (14.0-18.0); Mean Corpuscular Hgb Conc 34.4 g/dL (32-36); Mean Corpuscular Volume 93.5 fL (80-100); Mean Platelet Volume 9.8 fL (7.4-10.4); Monocytes # (auto) 0.37 K/uL (0.11-0.59); Neutrophils # (auto) 2.16 K/uL (1.4-6.5); Neutrophils % (auto) 46.5 %; Platelet Count 172 K/uL (130-400); Red Blood Count 4.47 M/uL (4.7-6.1); White Blood Count 4.65 K/uL (4.8-10.8)
[2018-09-11] MEDS ORDERED: OPTIRAY 320 125ml IV PRN (17:07)
--- NOTE | 2018-09-11 17:08 | CT Scan Report ---
CT head/brain wo con CLINICAL HISTORY: 77 years-old Male with Stroke evaluation . Acute strokelike symptoms TECHNIQUE: Multiple axial CT images of the head were obtained without contrast. A dose lowering tech nique was utilized adhering to the principles of ALARA. CT DOSE: 614.27 mGy.cm COMPARISON: Brain MRI 07/30/2017, head CT 07/29/2017 FINDINGS: No acute intracranial hemorrhage, midline shift, intracranial mass, hydrocephalus, territorial ischem ia or abnormal extra-axial collection. Age-related involutional changes with ex vacuo ventriculomegal y. Cerebral vascular calcifications are noted. Patchy white matter hypodensities suggest chronic micr ovascular ischemic disease. The calvarium is intact. The paranasal sinuses, mastoid air cells, and middle ear cavities are clear . IMPRESSION: No acute intracranial abnormality. The above report was generated using voice recognition software. It may contain grammatical, syntax o r spelling errors. Electronically signed by: Mikel Cornejo M.D. 09/11/2018 5:07 PM
[2018-09-11 17:16] LABS: iSTAT Creatinine 1.3 mg/dl (0.6-1.3); iSTAT Ionized Calcium 1.24 mmol/l (1.12-1.32); iSTAT Potassium 3.9 mEq/L (3.3-5.0)
[2018-09-11 17:17] LABS: Partial Thromboplastin Ratio 1.1; Partial Thromboplastin Time 30.9 Seconds (21.0-31.0); Prothrombin Time 19.2 Seconds (9.0-12.0)
--- NOTE | 2018-09-11 17:24 | CT Scan Report ---
CT angio head w con CLINICAL HISTORY: 77 years-old Male with stroke, apahsia. Acute strokelike symptoms COMPARISON STUDY: Head CT of same day TECHNIQUE: Following the IV administration of 119 cc of Optiray 320, CT angiogram of the brain was pe rformed from the skull base to the vertex. Images are reviewed in the axial, sagittal, and coronal pl anes. 3-D MIPS images are created and assessed. IV contrast was administered without complication. A dose lowering technique was utilized adhering to the principles of ALARA. CT DOSE: 652.60 mGy.cm FINDINGS: CT ANGIOGRAM OF THE BRAIN: The imaged bilateral internal carotid arteries are patent. Calcified plaque about the cavernous and s upraclinoid segments without high-grade stenosis. There is focal area of high-grade narrowing about t he mid M1 segment of the right middle cerebral artery. The left middle cerebral artery and anterior c erebral arteries are patent and unremarkable. Dominant left vertebral artery with developmentally dim inutive right vertebral artery. The basilar artery and right posterior cerebral artery are patent and unremarkable. There is a 5 mm segment of 50% luminal narrowing about the left P1 segment. There is n o aneurysm, or proximal branch occlusion identified. Dural sinuses appear patent. IMPRESSION: 1. 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 2. 5 mm segment of 50% luminal narrowing involves the left P1 segment. 3. No aneurysm or dissection. The above report was generated using voice recognition software. It may contain grammatical, syntax o r spelling errors. Electronically signed by: Mikel Cornejo M.D. 09/11/2018 5:23 PM
[2018-09-11 17:25] LABS: Alanine Aminotransferase 25 U/L (12-78); Albumin Level 4.1 gm/dl (3.4-5.0); Aspartate Aminotransferase 25 U/L (15-37); BUN Creatinine Ratio 20.1 (10-20); Blood Urea Nitrogen 25 mg/dl (7-18); Calcium 9.7 mg/dl (8.5-10.1); Carbon Dioxide 27 mmol/L (21-32); Chloride 107 mmol/L (98-107); Creatinine Clr Calc Pharmacy 59.3 ml/min; Est GFR (African American) 62.9; Est GFR (Non-African American) 54.3; Glucose 107 mg/dl (70-99); Magnesium 2.4 mg/dl (1.8-2.4); Potassium 3.9 mmol/L (3.5-5.1); Sodium 141 mmol/L (136-145)
--- NOTE | 2018-09-11 17:27 | CT Scan Report ---
NECK CTA HISTORY: stroke, apahsia TECHNIQUE: Multiaxial CT images of the neck were performed following the intravenous administration o f contrast to evaluate the major cervical vessels. Maximum intensity projection images were also obta ined. All measurements were calculated based on NASCET criteria. A dose lowering technique was utili zed adhering to the principles of ALARA. COMPARISON STUDY: Neck CTA 07/29/2017. FINDINGS: The aortic arch and proximal great vessels are widely patent. There is no significant sten osis, occlusion, or dissection identified within the bilateral common carotid, internal carotid, or v ertebral arteries. Stable sclerotic densities within the lung apices. This includes a nodular/irregul ar density within the left upper lobe anteriorly measuring 1.4 cm. A 1.3 cm left thyroid nodule, unch anged. The bilateral internal jugular veins appear patent. Hypoplastic right vertebral artery. Mild c alcified plaque within the bilateral carotid bulbs. Mild calcified plaque within the aortic arch. IMPRESSION: No significant stenosis, occlusion, or dissection identified within the carotid or vertebral arteries . Electronically signed by: Juan Pablo Hidalgo M.D. 09/11/2018 5:26 PM
[2018-09-11 17:29] LABS: Albumin Globulin Ratio 1.3 (0.9-2); Alkaline Phosphatase 79 U/L (45-117); Bilirubin,Total 0.6 mg/dl (0.2-1); Globulin 3.2 gm/dl (2.5-4.0); Total Protein 7.3 gm/dl (6.4-8.2); Troponin I < 0.015 ng/ml (0-0.045)
[2018-09-11] MEDS ORDERED: ASPIRIN 81 MG CHEW PO STA (17:38)
[2018-09-11 17:42] LABS: Appearance Urine Clear (Clear); Bilirubin Urine Negative (Negative); Blood Urine Negative (Negative); Color Urine Yellow; Glucose Urine UA Negative (Negative); Ketones Urine Negative (Negative); Leukocyte Esterase Urine Negative (Negative); Nitrite Urine Negative (Negative); Protein Urine Negative (Negative); Specific Gravity Urine 1.039 (1.000-1.030); Urobilinogen Urine Negative (Negative)
--- NOTE | 2018-09-11 17:48 | XRay Report ---
XR chest 1V portable HISTORY: weakness COMPARISON: Chest 07/29/2017. FINDINGS: Emphysema. No pneumothorax. Mild chronic interstitial thickening persists. No pleural effus ions. The heart remains borderline enlarged. No new focal lung consolidations to suggest pneumonia. IMPRESSION: Stable chronic changes as described above. No acute process within the chest. Electronically signed by: Juan Pablo Hidalgo M.D. 09/11/2018 5:46 PM
--- NOTE | 2018-09-11 17:53 | History & Physical Report ---
Date of Service September 11, 2018 Assessment & Plan (1) Aphasia: Expressive Aphasia Likely TIA H/O Possible punctate acute infarct within the right posterior frontal lobe and Recurrent TIAs R/O Acute CVA Not a candidate for tPA Admit in Tele CT head:No acute intracranial abnormality. Neck CTA:No significant stenosis, occlusion, or dissection identified within the carotid or vertebral arteries. Head CTA:1. 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 2. 5 mm segment of 50% luminal narrowing involves the left P1 segment. 3. No aneurysm or dissection. Stroke work up including lipid panel, A1C, MRI Brain, ECHO Speech and swallow eval Continue aspirin, Lipitor Neuro checks, Neurology consult PT/OT Allow permissive HTN in setting of acute CVA Atrial fibrillation Rate controlled Continue digoxin On Coumadin for anticoagulation INR in therapeutic range Monitor PT/INR Hypothyroidism Check TSH Continue levothyroxine Hyperlipidemia Continue Crestor May need to change to high intensity statin Lipid Panel Pending BPH Former Smoker No acute issues DVT Px: on Coumadin Code Status Full Code Disposition: Expect to discharge home when stable History of Present Illness Chief Complaint: Stroke like Symptoms Primary Care Provider: Vinnie Chand DO Patient is a 77-year-old male with history of atrial fibrillation, recurrent TIAs, possible punctate acute infarct within the right posterior frontal lobe, hypothyroidism, hyperlipidemia, BPH and other problems presents with history of sudden onset of expressive aphasia which started at around 4: 15 PM today afternoon. Patient noticed that he had difficulty expressing himself which lasted for about 1 hour. Patient received aspirin while in ED. Currently his symptoms resolved. Patient speech is usually slow and is at baseline as per patient's partner. CT head showed no acute intracranial abnormality. CT neck showed no significant stenosis, occlusion or dissection. Head CT showed focal high-grade stenosis about the M1 segment right middle cerebral artery; 5 mm segment of 50% luminal narrowing involves the left P1 segment; no aneurysm or dissection--findings unchanged from prior imaging as per ED physician. Denies any history of chest pain, SOB, palpitations, orthopnea, PND, dizziness, pedal edema, diaphoresis, cough, wheezing, hemoptysis, fever, chills, fall, head trauma, LOC, headache, weakness, numbness, change in vision, double/blurry vision, vertigo, facial deformity, bowel/bladder incontinence, nausea, vomiting, abdominal pain, diarrhea, dysuria, hematuria, recent travel, sick contact, recent change in medications. Patient is on Coumadin for chronic atrial fibrillation, INR is in therapeutic range. Allergies Allergy/AdvReac Type Severity Reaction Status Date / Time No Known Allergies Allergy Unverified 09/11/18 18:37 Home Medications Home Medications Medication Instructions Recorded Confirmed Type acetaminophen 1,000 mg PO Q6H PRN 09/11/18 09/11/18 History aspirin 81 mg PO DAILY 09/11/18 09/11/18 History digoxin 250 mcg PO HS 09/11/18 09/11/18 History levothyroxine 100 mcg PO QAM 09/11/18 09/11/18 History rosuvastatin 20 mg PO HS 09/11/18 09/11/18 History warfarin 5 mg PO SUTUWETHSA@1600 09/11/18 09/11/18 History warfarin 10 mg PO MOFR@1600 09/11/18 09/11/18 History Past Med/Surg History Medical History Hypothyroidism (Chronic) Hiatal hernia (Chronic) Atrial fibrillation (Chronic) Cerebrovascular disease (Chronic) "history TIA's" Dyslipidemia (Chronic) Stroke-like symptom Surgical History History of bilateral knee replacement (Chronic) "Dr. Mayer 2011 and 2013" History of inguinal hernia repair (Chronic) H/O vasectomy (Chronic) Social History Preferred Language: Bruneian Feels Safe at Home: Yes Smoking Status: Former smoker Hx Alcohol Use: Yes Review of Systems Review of Systems: All systems reviewed & are unremarkable except as noted in HPI & below Physical Exam Physical Exam: Physical Exam: Vitals signs as noted above General Appearance:Moderately built and nourished, no apparent distress Head: normocephalic, Atraumatic Eyes: normal inspection, EOMI Neck: supple, Trachea midline Respiratory/Chest: Normal breath sounds, CTA, No accessory muscle use Cardiovascular: Irregularly Irregular, No murmur Abdomen/GI:Soft, Non tender, Bowel sounds present Extremities/Musculoskelatal:normal inspection, no edema Neurologic/Psych:AAOX3, grossly no focal neurological deficits, Speech is slow at baseline Skin: normal color, warm Results & Data Vital Signs (Past 12 Hours) Vital Signs Pulse Pulse Resp BP BP Pulse Ox 09/11/18 17:23 68 18 174/110 H 97 09/11/18 16:47 71 16 185/121 H 97 Laboratory Results Short CBC 09/11/18 Range/Units 16:49 WBC 4.65 L (4.8-10.8) K/uL Hgb 14.4 (14.0-18.0) g/dL Hct 41.8 L (42-52) % Plt Count 172 (130-400) K/uL BMP 09/11/18 16:49 Sodium 141 Potassium 3.9 Chloride 107 Carbon Dioxide 27 BUN 25 H Creatinine 1.26 Glucose 107 H Calcium 9.7 Cardiac Enzymes 09/11/18 Range/Units 16:49 Troponin I < 0.015 (0-0.045) ng/ml Liver Function 09/11/18 Range/Units 16:49 Total Bilirubin 0.6 (0.2-1) mg/dl AST 25 (15-37) U/L ALT 25 (12-78) U/L Alkaline Phosphatase 79 (45-117) U/L Albumin 4.1 (3.4-5.0) gm/dl Urine 09/11/18 Range/Units 17:28 Urine Color Yellow Urine Appearance Clear (Clear) Urine pH 6.0 (4.5-7.5) Ur Specific [place] 1.039 H (1.000-1.030) Urine Protein Negative (Negative) Urine Glucose (UA) Negative (Negative) CT head: No acute intracranial abnormality. CXR: Stable chronic changes as described above. No acute process within the chest. Neck CTA: No significant stenosis, occlusion, or dissection identified within the carotid or vertebral arteries. Head CTA: 1. 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 2. 5 mm segment of 50% luminal narrowing involves the left P1 segment. 3. No aneurysm or dissection.
--- NOTE | 2018-09-11 18:01 | Emergency Department Note ---
Entered by Simin Hua acting as a scribe for Morteza Martinez M.D. History of Present Illness General Chief complaint: Stroke/CVA Symptoms Stated complaint: SLURRED SPEECH, HX OF STROKE Source: patient, family () and RN notes reviewed History of Present Illness Provider complaint: stroke Onset (ago): minute(s) (40) Location: head Severity: similar to prior episodes (TIA) Maximum Pain Intensity: 0 Quality: + other (stroke) Associated symptoms: + other (Positive bilateral weakness; Negative trouble swallowing; Negative falls; Negative blurry decision) The patient is a 77 year old male who presents to the Emergency Room with complaints of an stroke episode that started 40 minutes prior to arrival. The patent denies recent surgery or a fall. The patient denies trouble swallowing or gathering thoughts. The assigned nurse reports that the patient had difficulty getting his words out and answering questions. The patient's expresses that she was concerned when she noticed the patients speech was slower than usual. The assigned nurse states that the patient has bilateral weakness. The patient denies having a major stroke but reports that he has had TIA diagnosis four times with his last one being a year ago. The patient's reports that the patient has a history of atrial fibrillation and takes Coumadin. The patient d enies a history of diabetes. Home Medications Home Medications Medication Instructions Recorded Confirmed Type Digoxin 0.25 mg PO HS #0 06/01/15 History Acetaminophen (Tylenol) 2 tab PO Q6 PRN #0 tab 06/11/16 History LEVOTHYROXINE SODIUM 100 mcg PO DAILY #0 07/29/17 History WARFARIN SODIUM (COUMADIN) 5 mg PO 2XWK #0 tab 07/29/17 History WARFARIN SODIUM (COUMADIN) 10 mg PO 5XWK #0 tab 07/29/17 History ATORVASTATIN (LIPITOR) 40 mg PO QAM 30 Days #30 tab 07/31/17 Rx Allergies Allergy/AdvReac Type Severity Reaction Status Date / Time No Known Allergies Allergy Unverified 07/29/17 20:33 Past Med/Surg History Medical History Hypothyroidism (Chronic) Hiatal hernia (Chronic) Atrial fibrillation (Chronic) Cerebrovascular disease (Chronic) "history TIA's" Dyslipidemia (Chronic) Stroke-like symptom Surgical History History of bilateral knee replacement (Chronic) "Dr. Mayer 2011 and 2013" History of inguinal hernia repair (Chronic) H/O vasectomy (Chronic) Social History Preferred Language: [place] Feels Safe at Home: Yes Smoking Status: Former smoker Review of Systems See HPI for pertinent positives & negatives. and A total of 10 systems reviewed and were otherwise negative Physical Exam Vital Signs Vital Signs - 24 hr 09/11/18 16:47 09/11/18 17:23 09/11/18 17:54 Temperature Source Oral Sepsis Recent Fever Within 48 Hours No Sepsis Action Taken by Nursing No Action Required Pulse Rate 71 Pulse Rate [Right Finger] 68 67 Pulse Rhythm Regular Pulse Rhythm [Right Finger] Regular Pulse Strength Normal Pulse Strength [Right Finger] Normal Respiratory Rate 16 18 20 Respiratory Effort / Characteristics Non-Labored Non-Labored Respiratory Depth Normal Normal Respiratory Pattern Regular Regular Blood Pressure 185/121 H Blood Pressure [Right Arm] 174/110 H 188/96 H Blood Pressure Mean 142 Blood Pressure Mean [Right Arm] 131 126 Blood Pressure Position Lying Blood Pressure Position [Right Arm] Sitting Pulse Oximetry 97 97 98 Oxygen Delivery Method Room Air Room Air GENERAL: Awake, alert, well-appearing, in no distress HENT: Normocephalic, atraumatic. Oropharynx unremarkable. EYES: Normal conjunctiva. Sclera non-icteric. PERRL. Extraocular intact NECK: Supple. No nuchal rigidity. RESPIRATORY: Clear to auscultation. No wheezes. Normal respiratory effort. CARDIAC: Normal rate. Irregularly irregular rhythm . Extremities warm and well perfused. GI: Soft, non-distended. No tenderness to palpation. No rebound or guarding. No masses. RECTAL: Deferred. MUSCULOSKELETAL: Atraumatic. Chest examination reveals no tenderness. There is no CVA tenderness to palpation. LOWER EXTREMITIES: Calves are equal size bilaterally and non-tender. No edema NEURO: No sensory or motor deficits noted. No facial droop. No slurred speech. Word finding/aphasia moderate. No pronator drift. SKIN: Warm and dry. No rash or jaundice noted. Course 164: Past medical records reviewed. The patient was evaluated in room B1. A complete history and physical exam was performed. 3: I talked to Dr. Jh Tan Neurology who recommends admission for stroke evaluations. 1738: I updated the patient on his lab result findings. I am waiting on [facility] to discuss case further. 1741: I reviewed the patient's [facility] She will evaluate the patient for further management. Consultations Consultation #1: I talked to Dr. Jh Tan Neurology who recommends admission for stroke evaluations. Time: 17:33 Consultation #2: I reviewed the patient's case with Dr. Kate FRIAS, [facility] Hospitalist. She will evaluate the patient for further management. Time: 17:41 Administered Medications Ioversol (Optiray 320 125ml) 119 ml IV ONCE PRN PRN Reason: Interaction Checking Stop: 09/15/18 17:06 Last Admin: 09/11/18 17:10 Dose: 119 ml Documented by: [id number] Discontinued Medications Aspirin (Aspirin Chew) 324 mg PO NOW STA Stop: 09/11/18 17:39 Last Admin: 09/11/18 17:45 Dose: 324 mg Documented by: [id number] Labetalol HCl (Normodyne) 10 mg IV NOW STA Stop: 09/11/18 16:53 Last Admin: 09/11/18 16:52 Dose: 5 mg Documented by: [id number] Cosigned by: [id number] Medical Decision Making Differential Diagnosis Differential diagnosis includes: metabolic, infection, hypoglycemia, electrolyte abnormalities, cardiac sources, intracerebral event, toxicologic, neurologic, as well as others were entertained. Medical Records Attestation: I reviewed the patient's medical records. Home Medications Current Medication List: was personally reviewed by me Laboratory Data Attestation: I reviewed the patient's lab results. Result diagrams: 09/11/18 16:49 09/11/18 16:49 Lab Results 09/11/18 09/11/18 09/11/18 Range/Units 16:49 16:49 16:49 WBC 4.65 L (4.8-10.8) K/uL RBC 4.47 L (4.7-6.1) M/uL Hgb 14.4 (14.0-18.0) g/dL POC Hgb (14.0-18.0) g/dl Hct 41.8 L (42-52) % POC Hct (42-52) % MCV 93.5 (80-100) fL MCH 32.2 (25-34) pg MCHC 34.4 (32-36) g/dL RDW Std Deviation 44.0 (36.4-46.3) fL RDW Coeff of Fran 13.0 (11.5-14.5) % Plt Count 172 (130-400) K/uL MPV 9.8 (7.4-10.4) fL Immature Gran % (Auto) 0.0 % Neut % (Auto) 46.5 % Lymph % (Auto) 43.0 % [place] % (Auto) 8.0 % Eos % (Auto) 1.9 % Baso % (Auto) 0.6 % Immature Gran # (Auto) 0.00 (0.00-0.02) K/uL Neut # (Auto) 2.16 (1.4-6.5) K/uL Lymph # (Auto) 2.00 (1.2-3.4) K/uL [place] # (Auto) 0.37 (0.11-0.59) K/uL Eos # (Auto) 0.09 (0-0.5) K/uL Baso # (Auto) 0.03 (0-0.2) K/uL PT 19.2 H (9.0-12.0) Seconds POC INR (0.9-1.1) INR 2.0 H (0.9-1.1) APTT 30.9 (21.0-31.0) Seconds PTT Ratio 1.1 POC Sodium (135-144) mEq/L Sodium 141 (136-145) mmol/L POC Potassium (3.3-5.0) mEq/L Potassium 3.9 (3.5-5.1) mmol/L POC Chloride (101-112) mEq/L Chloride 107 (98-107) mmol/L Carbon Dioxide 27 (21-32) mmol/L POC Total CO2 (24-31) mEq/l Anion Gap 7.0 (3-11) POC Anion Gap (16-25) mmol/L POC BUN (7-18) mg/dl BUN 25 H (7-18) mg/dl Creatinine 1.26 (0.6-1.4) mg/dl POC Creatinine (0.6-1.3) mg/dl Est Cr Clr Drug Dosing 59.3 ml/min Est GFR ( Amer) 62.9 Est GFR (Non-Af Amer) 54.3 BUN/Creatinine Ratio 20.1 H (10-20) Glucose 107 H (70-99) mg/dl POC Glucose (other) (70-99) mg/dl Calcium 9.7 (8.5-10.1) mg/dl POC Ioniz Calcium Charli (1.12-1.32) mmol/l Magnesium 2.4 (1.8-2.4) mg/dl Total Bilirubin 0.6 (0.2-1) mg/dl AST 25 (15-37) U/L ALT 25 (12-78) U/L Alkaline Phosphatase 79 (45-117) U/L Troponin I < 0.015 (0-0.045) ng/ml Total Protein 7.3 (6.4-8.2) gm/dl Albumin 4.1 (3.4-5.0) gm/dl Globulin 3.2 (2.5-4.0) gm/dl Albumin/Globulin Ratio 1.3 (0.9-2) Urine Color Urine Appearance (Clear) Urine pH (4.5-7.5) Ur Specific [place] (1.000-1.030) Urine Protein (Negative) Urine Glucose (UA) (Negative) Urine Ketones (Negative) Urine Blood (Negative) Urine Nitrite (Negative) Urine Bilirubin (Negative) Urine Urobilinogen (Negative) Ur Leukocyte Esterase (Negative) Digoxin (0.8-2.0) ng/ml Blood Type Antibody Screen 09/11/18 09/11/18 09/11/18 Range/Units 16:49 16:49 16:58 WBC (4.8-10.8) K/uL RBC (4.7-6.1) M/uL Hgb (14.0-18.0) g/dL POC Hgb (14.0-18.0) g/dl Hct (42-52) % POC Hct (42-52) % MCV (80-100) fL MCH (25-34) pg MCHC (32-36) g/dL RDW Std Deviation (36.4-46.3) fL RDW Coeff of Fran (11.5-14.5) % Plt Count (130-400) K/uL MPV (7.4-10.4) fL Immature Gran % (Auto) % Neut % (Auto) % Lymph % (Auto) % [place] % (Auto) % Eos % (Auto) % Baso % (Auto) % Immature Gran # (Auto) (0.00-0.02) K/uL Neut # (Auto) (1.4-6.5) K/uL Lymph # (Auto) (1.2-3.4) K/uL [place] # (Auto) (0.11-0.59) K/uL Eos # (Auto) (0-0.5) K/uL Baso # (Auto) (0-0.2) K/uL PT (9.0-12.0) Seconds POC INR 2.1 H (0.9-1.1) INR (0.9-1.1) APTT (21.0-31.0) Seconds PTT Ratio POC Sodium (135-144) mEq/L Sodium (136-145) mmol/L POC Potassium (3.3-5.0) mEq/L Potassium (3.5-5.1) mmol/L POC Chloride (101-112) mEq/L Chloride (98-107) mmol/L Carbon Dioxide (21-32) mmol/L POC Total CO2 (24-31) mEq/l Anion Gap (3-11) POC Anion Gap (16-25) mmol/L POC BUN (7-18) mg/dl BUN (7-18) mg/dl Creatinine (0.6-1.4) mg/dl POC Creatinine (0.6-1.3) mg/dl Est Cr Clr Drug Dosing ml/min Est GFR ( Amer) Est GFR (Non-Af Amer) BUN/Creatinine Ratio (10-20) Glucose (70-99) mg/dl POC Glucose (other) (70-99) mg/dl Calcium (8.5-10.1) mg/dl POC Ioniz Calcium Charli (1.12-1.32) mmol/l Magnesium (1.8-2.4) mg/dl Total Bilirubin (0.2-1) mg/dl AST (15-37) U/L ALT (12-78) U/L Alkaline Phosphatase (45-117) U/L Troponin I (0-0.045) ng/ml Total Protein (6.4-8.2) gm/dl Albumin (3.4-5.0) gm/dl Globulin (2.5-4.0) gm/dl Albumin/Globulin Ratio (0.9-2) Urine Color Urine Appearance (Clear) Urine pH (4.5-7.5) Ur Specific [place] (1.000-1.030) Urine Protein (Negative) Urine Glucose (UA) (Negative) Urine Ketones (Negative) Urine Blood (Negative) Urine Nitrite (Negative) Urine Bilirubin (Negative) Urine Urobilinogen (Negative) Ur Leukocyte Esterase (Negative) Digoxin 0.6 L (0.8-2.0) ng/ml Blood Type O Positive Antibody Screen NEGATIVE 09/11/18 09/11/18 Range/Units 17:01 17:28 WBC (4.8-10.8) K/uL RBC (4.7-6.1) M/uL Hgb (14.0-18.0) g/dL POC Hgb 15.0 (14.0-18.0) g/dl Hct (42-52) % POC Hct 44 (42-52) % MCV (80-100) fL MCH (25-34) pg MCHC (32-36) g/dL RDW Std Deviation (36.4-46.3) fL RDW Coeff of Fran (11.5-14.5) % Plt Count (130-400) K/uL MPV (7.4-10.4) fL Immature Gran % (Auto) % Neut % (Auto) % Lymph % (Auto) % [place] % (Auto) % Eos % (Auto) % Baso % (Auto) % Immature Gran # (Auto) (0.00-0.02) K/uL Neut # (Auto) (1.4-6.5) K/uL Lymph # (Auto) (1.2-3.4) K/uL [place] # (Auto) (0.11-0.59) K/uL Eos # (Auto) (0-0.5) K/uL Baso # (Auto) (0-0.2) K/uL PT (9.0-12.0) Seconds POC INR (0.9-1.1) INR (0.9-1.1) APTT (21.0-31.0) Seconds PTT Ratio POC Sodium 140 (135-144) mEq/L Sodium (136-145) mmol/L POC Potassium 3.9 (3.3-5.0) mEq/L Potassium (3.5-5.1) mmol/L POC Chloride 102 (101-112) mEq/L Chloride (98-107) mmol/L Carbon Dioxide (21-32) mmol/L POC Total CO2 26 (24-31) mEq/l Anion Gap (3-11) POC Anion Gap 17.0 (16-25) mmol/L POC BUN 25 H (7-18) mg/dl BUN (7-18) mg/dl Creatinine (0.6-1.4) mg/dl POC Creatinine 1.3 (0.6-1.3) mg/dl Est Cr Clr Drug Dosing ml/min Est GFR ( Amer) Est GFR (Non-Af Amer) BUN/Creatinine Ratio (10-20) Glucose (70-99) mg/dl POC Glucose (other) 103 H (70-99) mg/dl Calcium (8.5-10.1) mg/dl POC Ioniz Calcium Charli 1.24 (1.12-1.32) mmol/l Magnesium (1.8-2.4) mg/dl Total Bilirubin (0.2-1) mg/dl AST (15-37) U/L ALT (12-78) U/L Alkaline Phosphatase (45-117) U/L Troponin I (0-0.045) ng/ml Total Protein (6.4-8.2) gm/dl Albumin (3.4-5.0) gm/dl Globulin (2.5-4.0) gm/dl Albumin/Globulin Ratio (0.9-2) Urine Color Yellow Urine Appearance Clear (Clear) Urine pH 6.0 (4.5-7.5) Ur Specific [place] 1.039 H (1.000-1.030) Urine Protein Negative (Negative) Urine Glucose (UA) Negative (Negative) Urine Ketones Negative (Negative) Urine Blood Negative (Negative) Urine Nitrite Negative (Negative) Urine Bilirubin Negative (Negative) Urine Urobilinogen Negative (Negative) Ur Leukocyte Esterase Negative (Negative) Digoxin (0.8-2.0) ng/ml Blood Type Antibody Screen Imaging Data Radiologist's Impression: Radiology results as stated below per my review and the radiologist's interpretation: CT head/brain wo con CLINICAL HISTORY: 77 years-old Male with Stroke evaluation . Acute strokelike symptoms TECHNIQUE: Multiple axial CT images of the head were obtained without contrast. A dose lowering technique was utilized adhering to the principles of ALARA. CT DOSE: 614.27 mGy.cm COMPARISON: Brain MRI 07/30/2017, head CT 07/29/2017 FINDINGS: No acute intracranial hemorrhage, midline shift, intracranial mass, hydrocephalus, territorial ischemia or abnormal extra-axial collection. Age-r elated involutional changes with ex vacuo ventriculomegaly. Cerebral vascular calcifications are noted. Patchy white matter hypodensities suggest chronic microvascular ischemic disease. The calvarium is intact. The paranasal sinuses, mastoid air cells, and middle ear cavities are clear. IMPRESSION: No acute intracranial abnormality. The above report was generated using voice recognition software. It may contain grammatical, syntax or spelling errors. Electronically signed by: Mikel Cornejo M.D. 09/11/2018 5:07 PM XR chest 1V portable HISTORY: weakness COMPARISON: Chest 07/29/2017. FINDINGS: Emphysema. No pneumothorax. Mild chronic interstitial thickening persists. No pleural effusions. The heart remains borderline enlarged. No new f ocal lung consolidations to suggest pneumonia. IMPRESSION: Stable chronic changes as described above. No acute process within the chest. Electronically signed by: Juan Pablo Hidalgo M.D. 09/11/2018 5:[address] angio head w con CLINICAL HISTORY: 77 years-old Male with stroke, apahsia. Acute strokelike symptoms COMPARISON STUDY: Head CT of same day TECHNIQUE: Following the IV administration of 119 cc of Optiray 320, CT angiogram of the brain was performed from the skull base to the vertex. Images are reviewed in the axial, sagittal, and coronal planes. 3-D MIPS images are created and assessed. IV contrast was administered without complication. A dose lowering technique was utilized adhering to the principles of ALARA. CT DOSE: 652.60 mGy.cm FINDINGS: CT ANGIOGRAM OF THE BRAIN: The imaged bilateral internal carotid arteries are patent. Calcified plaque about the cavernous and supraclinoid segments without high-grade stenosis. There is focal area of high-grade narrowing about the mid M1 segment of the right middle cerebral artery. The left middle cerebral artery and anterior cerebral arteries are patent and unremarkable. Dominant left vertebral artery with developmentally diminutive right vertebral artery. The basilar artery and right posterior cerebral artery are patent and unremarkable. There is a 5 mm segment of 50% luminal narrowing about the left P1 segment. There is no aneurysm, or proximal branch occlusion identified. Dural sinuses appear patent. IMPRESSION: 1. 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 2. 5 mm segment of 50% luminal narrowing involves the left P1 segment. 3. No aneurysm or dissection. The above report was generated using voice recognition software. It may contain grammatical, syntax or spelling errors. Electronically signed by: Mikel Cornejo M.D. 09/11/2018 5:23 PM NECK CTA HISTORY: stroke, apahsia TECHNIQUE: Multiaxial CT images of the neck were performed following the intravenous administration of contrast to evaluate the major cervical vessels. Maximum intensity projection images were also obtained. All measurements were calculated based on NASCET criteria. A dose lowering technique was utilized adhering to the principles of ALARA. COMPARISON STUDY: Neck CTA 07/29/2017. FINDINGS: The aortic arch and proximal great vessels are widely patent. There is no significant stenosis, occlusion, or dissection identified within the bilateral common carotid, internal carotid, or vertebral arteries. Stable sclerotic densities within the lung apices. This includes a nodular/irregular density within the left upper lobe anteriorly measuring 1.4 cm. A 1.3 cm left thyroid nodule, unchanged. The bilateral internal jugular veins appear patent. Hypoplastic right vertebral artery. Mild calcified plaque within the bilateral carotid bulbs. Mild calcified plaque within the aortic arch. IMPRESSION: No significant stenosis, occlusion, or dissection identified within the carotid or vertebral arteries. Electronically signed by: Juan Pablo Hidalgo M.D. 09/11/2018 5:26 PM ECG Data Attestation: I personally reviewed and interpreted this ECG as follows: Indication: other (stroke) Rate (beats per minute): 69 Rhythm: atrial fibrillation Findings: + RBBB (incomplete); no ST elevation Blood Pressure Blood Pressure Findings: Elevated blood pressure Blood Pressure Disposition: Referred to patients primary care provider ALTAGRACIA Narrative Patient is a 77-year-old gentleman with a history of atrial fibrillation maintained on Coumadin digoxin as well as a history of TIAs presenting with sudden onset of aphasia at approximately 4:00 today when talking with the . No trauma reported. Made a stroke alert given deficits. No other deficit in extremities noted or facial droop. Does have some word finding. Denies any headache. Initially given a dose of labetalol given blood pressure greater than 180 systolic. INR was therapeutic >2 thus contraindicating TPA. No evidence of head bleed on CT. CT angiograms were completed to look for vascular occlusion. Basic labs were also obtained as well as EKG and troponin. Laboratory studies are grossly unremarkable. CTs show similar vascular stenosis last year with a right sided MCA stenosis. Discussed with [place] neurology recommended aspirin and admission for stroke evaluation. Given 324mg ASA. Discussed with the patient who is in agreement with this plan and symptoms have improved. [facility] hospitalist contacted. Impression & Plan Aphasia, TIA (transient ischemic attack), Hypertension Discharge Plan Visit Data Chief Complaint: Stroke/CVA Symptoms Stated Complaint: SLURRED SPEECH, HX OF STROKE ED Provider: Morteza Martinez Discharge Problem: Aphasia, TIA (transient ischemic attack), Hypertension Patient Disposition: Being Evaluated by Hospitalist Forms Stand Alone Forms: My [facility] Prescriptions Prescriptions: No Action Digoxin 0.25 MG tablet 0.25 mg PO HS Qty: 0 RF: 0 Acetaminophen (Tylenol) 500 MG tablet 2 tab PO Q6 PRN (Reason: Pain) Qty: 0 RF: 3 LEVOTHYROXINE SODIUM 100 MCG INJECTION 100 mcg PO DAILY Qty: 0 RF: 0 WARFARIN SODIUM (COUMADIN) 5 MG tablet 5 mg PO 2XWK Qty: 0 RF: 0 WARFARIN SODIUM (COUMADIN) 5 MG tablet 10 mg PO 5XWK Qty: 0 RF: 0 ATORVASTATIN (LIPITOR) 40 MG tablet 40 mg PO QAM 30 Days Qty: 30 RF: 1 Referrals Referrals: Vinnie Chand DO [Primary Care Provider] - Discharge Problem: Hypertension Qualifiers: Hypertension type: unspecified Qualified Code(s): I10 - Essential (primary) hypertension The julienne's documentation has been prepared under my direction and personally reviewed by me in its entirety. I confirm that the note above accurately reflects all work, treatment, procedures, and medical decision making performed by me.
[2018-09-11] MEDS ORDERED: PHARMACIST DISCHARGE MED REC CONSULT PRN (19:55)
[2018-09-11] MEDS ORDERED: ACETAMINOPHEN 325 MG TAB PO PRN (19:55)
[2018-09-11] MEDS ORDERED: ONDANSETRON INJ 2 MG/ML 2 ML VIAL IV PRN (19:55)
[2018-09-11] MEDS ORDERED: POLYETHYLENE (MIRALAX) 17 GM PACK PO PRN (19:55)
[2018-09-11] MEDS ORDERED: ROSUVASTATIN CALCIUM 20 MG TAB PO SCH (21:00)
[2018-09-11] MEDS ORDERED: DIGOXIN 0.25 MG TAB PO SCH (21:00)
--- NOTE | 2018-09-11 23:23 | Magnetic Resonance Report ---
MR brain wo con HISTORY: 77 years-old Male Stroke like symptoms acute strokelike symptoms COMPARISON: CT head, CTA head neck of same day, brain MRI 07/30/2017 TECHNIQUE: Multiplanar multisequence MRI of the brain was obtained without the use of IV contrast. FINDINGS: Large field view electrotype servicer localizer images demonstrate no gross extracranial abnormality. No restricted diffusion to suggest acute or subacute infarction. Midline structures including the corpus callosum, brainstem, optic chiasm, pituitary and pineal glands appear unremarkable the sagittal T1 series. Ther e is no cerebellar tonsillar herniation. Degenerative changes noted about the imaged cervical spine. Age-related involutional changes with ex vacuo ventriculomegaly. Moderate T2/FLAIR hyperintensities a bout the white matter. No acute intracranial hemorrhage, midline shift, abnormal extra axial collecti on, hydrocephalus or intracranial mass. The major flow voids at the level the skull base appear unrem arkable. 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 Trace left mastoid effusion. Orbits are unremarkable. Mild mucosal thickening of the paranasal sinuses. The skull and soft tissues are u nremarkable. IMPRESSION: 1. No acute intracranial abnormality, specifically no acute or subacute infarction. 2. Age-related involutional changes with moderate chronic microvascular ischemic disease. The above report was generated using voice recognition software. It may contain grammatical, syntax o r spelling errors. Electronically signed by: Mikel Cornejo M.D. 09/11/2018 11:22 PM
[2018-09-12 05:45] LABS: Basophils # (auto) 0.03 K/uL (0-0.2); Basophils % (auto) 0.7 %; Eosinophils # (auto) 0.13 K/uL (0-0.5); Eosinophils % (auto) 2.9 %; Hematocrit (blood only) 37.7 % (42-52); Hemoglobin 12.8 g/dL (14.0-18.0); Immature Granulocytes # (auto) 0.01 K/uL (0.00-0.02); Immature Granulocytes % (auto) 0.2 %; Lymphocytes # (auto) 1.99 K/uL (1.2-3.4); Lymphocytes % (auto) 44.6 %; Mean Corpuscular Volume 93.5 fL (80-100); Mean Platelet Volume 10.2 fL (7.4-10.4); Monocytes # (auto) 0.39 K/uL (0.11-0.59); Monocytes % (auto) 8.7 %; Neutrophils # (auto) 1.91 K/uL (1.4-6.5); Neutrophils % (auto) 42.9 %; Platelet Count 164 K/uL (130-400); RDW Coefficient of Variation 13.1 % (11.5-14.5); RDW Standard Deviation 44.8 fL (36.4-46.3); Red Blood Count 4.03 M/uL (4.7-6.1); White Blood Count 4.46 K/uL (4.8-10.8)
[2018-09-12 06:00] LABS: Prothrombin Time 19.5 Seconds (9.0-12.0)
[2018-09-12 06:02] LABS: Estimated Average Glucose 123 mg/dl; Hemoglobin A1C 5.9 % (4.5-5.6)
[2018-09-12 06:12] LABS: BUN Creatinine Ratio 16.9 (10-20); Calcium 8.6 mg/dl (8.5-10.1); Creatinine Clr Calc Pharmacy 59.8 ml/min; Est GFR (African American) 65.4; Est GFR (Non-African American) 56.4; Potassium 3.8 mmol/L (3.5-5.1)
[2018-09-12] MEDS ORDERED: LEVOTHYROXINE SODIUM 100 MCG TABLET PO SCH (06:30)
[2018-09-12] MEDS ORDERED: ASPIRIN 81 MG ECTAB PO SCH (09:00)
--- NOTE | 2018-09-12 14:22 | Consultation Report ---
DATE OF CONSULTATION: 09/12/2018 INPATIENT CARDIOLOGY CONSULTATION CONSULTATION REQUESTED BY: Dr. Harrington. REASON FOR CONSULTATION: TIA with a therapeutic INR. HISTORY OF PRESENT ILLNESS: Mr. Fan is a very pleasant 77-year-old gentleman who normally follows with Dr. Galarza of our cardiology practice for his history of chronic atrial fibrillation. He presented to [facility] on 09/11/2018 after approximately 1 hour of expressive aphasia. The patient states that all of a sudden, he just had difficulty expressing himself and this lasted for about an hour or an hour and 15 minutes. He and his significant other became concerned and came into the Emergency Department. His symptoms spontaneously resolved. A CT of the head in the ER showed no acute intracranial abnormality and the neck showed no significant stenosis, occlusion or dissection. He was admitted to telemetry and monitored overnight. Currently, the patient states that he feels well and has not had any recurrent symptoms and denies experiencing any chest pain, shortness of breath, palpitations, lightheadedness, dizziness, or syncope. PAST SURGICAL HISTORY: 1. Bilateral total knee replacements. 2. History of chest tube insertion for pneumothorax. 3. Colonoscopy. 4. Hydrocele repair. 5. Vasectomy. 6. Hernia repair. MEDICAL ILLNESSES: 1. Chronic atrial fibrillation on chronic Coumadin therapy. 2. History of TIA while INR was subtherapeutic. 3. History of spontaneous hematoma of the thigh with severe anemia requiring blood transfusion while on Coumadin in the past. 4. History of small vessel cerebrovascular disease. FAMILY HISTORY: Noncontributory. SOCIAL HISTORY: Denies any tobacco use. Drinks rare alcohol. Denies any recreational drug use. He is not , but he and his significant other live together for many years now. He is retired from the university. REVIEW OF SYSTEMS: As per HPI, all other review of systems reviewed and negative at this time. ALLERGIES: ALFUZOSIN. MEDICATIONS AN OUTPATIENT: 1. Digoxin 250 mcg daily. 2. Crestor 20 mg daily. 3. Warfarin as directed by the [facility] clinic. 4. Aspirin 81 mg daily. PHYSICAL EXAMINATION: VITALS: Temperature 36.6, pulse 60, respiratory rate 12, blood pressure 159/100. GENERAL: Awake, alert, oriented x3 in no acute distress. HEENT: Normocephalic, atraumatic. Pupils equal, round, reactive to light and accommodation. Extraocular muscles intact. Anicteric sclerae. Moist mucous membranes. NECK: No JVD, no bruit. CARDIOVASCULAR: Irregularly irregular, unable to appreciate any murmurs, rubs or gallops. PULMONARY: Clear to auscultation bilaterally. No rales, rhonchi, or wheezing. ABDOMEN: Bowel sounds x4, soft. No rebound, guarding, or tenderness. No organomegaly. EXTREMITIES: No clubbing, cyanosis or edema. +2 pedal pulses bilaterally. SKIN: Warm and dry. TEST RESULTS: A 2D echocardiogram was read as normal LV chamber size with mild concentric LVH, normal LV systolic function, EF 55-60%, no segmental wall motion abnormalities are noted, grade 1 diastolic dysfunction, mild aortic valve sclerosis without stenosis, mild mitral regurgitation, moderate left atrial enlargement, severe right atrial enlargement. The interatrial septum is intact with no evidence of an atrially septal defect. Injection of contrast documented no intraatrial shunt. LABORATORY STUDIES OF SIGNIFICANCE: INR of 2.0, currently 2.1 upon arrival. IMPRESSION: 1. Transient ischemic attack in the setting of a therapeutic INR. 2. Chronic atrial fibrillation, on chronic Coumadin therapy. 3. History of significant bleeding complications while on Coumadin therapy. 4. History of previous transient ischemic attack while INR is subtherapeutic. RECOMMENDATIONS: It was my pleasure to see Mr. Fan in consultation today. From a cardiac standpoint, given the fact that his INR is therapeutic, there is really no further intervention what we may be able to offer at this point while he is in inpatient; however, after discussing his presentation with his primary molding machine operator helper, Dr. Galarza, we are both in agreement that the patient would benefit from a Watchman device evaluation. So upon discharge, my office will arrange for evaluation with Dr. Rudolph at [facility] in [place] as to the patient's candidacy given his TIA while anticoagulated and history of bleeding while on Coumadin. Otherwise, no medication changes will be made at this time and my office will call to arrange followup with Dr. Galarza upon discharge as well.
--- NOTE | 2018-09-12 15:50 | Procedure Note ---
EEG Procedure Note Date of Service September 12, 2018 Start / End Times Start Time: 0800 End Time: 0830 Referring Physician Chaitanya Huntley MD History Recurrent episodes of a aphasia with negative MRI question focal seizures Home Medication List Home Medications Medication Instructions Recorded Confirmed Type acetaminophen 1,000 mg PO Q6H PRN 09/11/18 09/11/18 History aspirin 81 mg PO DAILY 09/11/18 09/11/18 History digoxin 250 mcg PO 09/11/18 09/11/18 History levothyroxine 100 mcg PO QAM 09/11/18 09/11/18 History rosuvastatin 20 mg PO 09/11/18 09/11/18 History warfarin 5 mg PO SUTUWETHSA@1600 09/11/18 09/11/18 History warfarin 10 mg PO MOFR@1600 09/11/18 09/11/18 History Inpatient Medication List Aspirin (Ecotrin Ectab) 81 mg PO DAILY [facility] Stop: 10/12/18 08:59 Last Admin: 09/12/18 08:18 Dose: 81 mg Documented by: [id number] Digoxin (Lanoxin) 0.25 mg PO [facility] Stop: 10/11/18 20:59 Last Admin: 09/11/18 21:11 Dose: 0.25 mg Documented by: [id number] [facility]: 10/12/18 06:29 Last Admin: 09/12/18 06:11 Dose: 100 mcg Documented by: [id number] Rosuvastatin Calcium (Crestor) 20 mg PO [facility] Stop: 10/11/18 20:59 Last Admin: 09/11/18 21:11 Dose: 20 mg Documented by: [id number] Warfarin Sodium (Coumadin) 10 mg PO MOFR@1600 [facility] Stop: 10/15/18 15:59 Last Admin: 09/11/18 21:45 Dose: 10 mg Documented by: [id number] Discontinued Medications Aspirin (Aspirin Chew) 324 mg PO NOW [facility] Stop: 09/11/18 17:39 Last Admin: 09/11/18 17:45 Dose: 324 mg Documented by: [id number] Ioversol (Optiray 320 125ml) 119 ml IV ONCE PRN PRN Reason: Interaction Checking Stop: 09/15/18 17:06 Last Admin: 09/11/18 17:10 Dose: 119 ml Documented by: [id number] Labetalol HCl (Normodyne) 10 mg IV NOW [facility] Stop: 09/11/18 16:53 Last Admin: 09/11/18 16:52 Dose: 5 mg Documented by: [id number] Cosigned by: [id number] Description This is a 21 electrode EEG with a single channel dedicated to limited EKG. The electrodes were placed in accordance with the International 10-20 system. This recording was done as a bedside tracing is of excellent technical quality with few or no muscle or movement artifact. Photic stimulation was performed. Hyperventilation was not. Drowsiness and light sleep are not obtained. Under these conditions there is evidence for a well-developed bilaterally symmetrical posterior head region maximal background rhythm in the alpha range of up to 10 to 11 Hz maximum frequency of up to 30 V of maximal amplitude. Po lymorphic mid frequency theta activity is seen in a symmetrical fashion over the central regions predominantly. Beta activity seen bifrontally Photic stimulation provokes a modest driving response without a photoparoxysmal or photo myogenic component At no time the during the waking tracing is there evidence for potentially epileptogenic at activity Interpretation This EEG is normal without evidence for focal or generalized encephalopathy or evidence for potentially epileptogenic activity Clinical Correlation This normal EEG indicates no evidence for potentially epileptogenic activity involving left hemispheric structures and shows no evidence in addition for a generalized or other focal encephalopathy
[2018-09-12] MEDS ORDERED: WARFARIN SOD 5 MG TAB PO SCH (16:00)
--- NOTE | 2018-09-12 16:31 | Neurology Consultation ---
Date of Consultation September 12, 2018 Assessment & Plan (1) Aphasia: 1. coumadin is therapeutic INR continue 2 aspirin 81 mg daily continue 3. TTE- EF 55-60% no ASD 4. PT/OT no needs 5. will defer to cardiology for any change in current anticoag or plt therapy 6. no evidence of stroke on MRI no follow up in neurology will see patient PRN. (2) Hypertension: Supervising Physician Co-Signing Physician Notes I have seen and discussed above patient with Dr Chaitanya Huntley, neurology I have seen and examined this man, reviewed his past medical history, his imaging studies and discussed his case with Rehana Weinberg PA-C. 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 which of course is nothing to do with his current symptoms This is his second admission for this problem in the last year and there is talk of perhaps using a watchman device rather than adding antiplatelet agents or switching antiplatelet agents in combination with his current Coumadin As noted above imaging studies have shown nothing new and there is certainly no new evidence for infarction in the left hemisphere, and abnormality on EEG which would possibly support a focal seizure disorder and his exam is back to what everyone thinks this is baseline At this point that we are recommending discharge on his current combination of aspirin and Coumadin and he will follow-up with Dr. Galarza and have a long discussion regarding future options for embolic prophylaxis in the setting of nonvalvular atrial fibrillation and failure of combination Coumadin and antiplatelet drugs Chaitanya Huntley MD History of Present Illness Reason for Consultation: Stroke like Symptoms, TIA Requesting Physician: Xiao Rutledge MD Attending Physician: Xiao Rutledge MD History of Present Illness Landon is a 77 year old male with PMH Afib, recurrent TIAs, possible punctate acute infarct within the right posterior frontal lobe, hypothyroidism, HLD, BPH He had a sudden onset of expressive aphasia which started at around 4: 15 PM today afternoon. He had difficulty expressing himself which lasted for about 1 hour. He received aspirin while in ED. Currently his symptoms resolved. His speech is usually slow and is at baseline. CT head showed no acute intracranial abnormality. CT neck showed no significant stenosis, occlusion or dissection. Head CT showed focal high-grade stenosis about the M1 segment right middle cerebral artery; 5 mm segment of 50% luminal narrowing involves the left P1 segment; no aneurysm or dissection--findings unchanged from prior imaging as per ED physician. He is on Coumadin for chronic atrial fibrillation, INR is in therapeutic range. denies CP, SOB, abdominal pain, one sided weakness, numbness tiingling, vision changes, swallowing issues, falls or head injury Allergies Allergy/AdvReac Type Severity Reaction Status Date / Time No Known Allergies Allergy Unverified 09/11/18 18:37 Home Medications Home Medications Medication Instructions Recorded Confirmed Type acetaminophen 1,000 mg PO Q6H PRN 09/11/18 09/11/18 History aspirin 81 mg PO DAILY 09/11/18 09/11/18 History digoxin 250 mcg PO HS 09/11/18 09/11/18 History levothyroxine 100 mcg PO QAM 09/11/18 09/11/18 History rosuvastatin 20 mg PO HS 09/11/18 09/11/18 History warfarin 5 mg PO SUTUWETHSA@1600 09/11/18 09/11/18 History warfarin 10 mg PO MOFR@1600 09/11/18 09/11/18 History Patient History Medical History Hypothyroidism (Chronic) Hiatal hernia (Chronic) Atrial fibrillation (Chronic) Cerebrovascular disease (Chronic) "history TIA's" Dyslipidemia (Chronic) Stroke-like symptom Surgical History History of bilateral knee replacement (Chronic) "Dr. Mayer 2011 and 2013" History of inguinal hernia repair (Chronic) H/O vasectomy (Chronic) Social History Preferred Language: [place]an Communication Ability: Effective Office Helper Required: No Beliefs That Will Affect Care: None Current Living Situation: Significant Other Other Information That Helps Us Care for You: No Feels Safe at Home: Yes Safety Concerns: Feels Safe At This Time Smoking Status: Never smoker Do You Dip or Chew Tobacco: No ; Second Hand Exposure: No ; Hx Alcohol Use: Yes Alcohol type: beer Hx Substance Use: No Physical Exam Physical Exam: Physical Exam: Constitutional: appearance nourished, healthy Ears, Nose, Mouth and Throat: mucous membranes moist, no injection and skin normal, eyes normal Cardiovascular: irregular Respiratory: CTA Musculoskeletal: no peripheral edema and good distal pulses Skin: no stigmata of neurocutaneous disease noted and normal and intact Eyes: extraocular muscles intact (EOMI) and pupils equal, round and reactive to light (PERRL) NEUROLOGIC EXAMINATION: Mental status: Alert and interactive Oriented to full date and location Oriented to person Speech fluent with no evidence of aphasia. slowed speech (baseline) identified button stethescope , sticks out tongue, closes eye, points to ceiling with right hand Cranial Nerves smile eye brow raise symmetric Reflexes: Deep tendon reflexes were symmetrical and graded 2/5. Sensory: light and cool touch Coordination: finger to nose no bipass Gait/Stance: Posture normal walks around unit without issues Motor: Negative for pronator drift of out stretched arms with eyes closed. Strength: biceps triceps hand stamp mounter 5/5 bilaterally Results & Data Vital Signs (Past 12 Hours) Vital Signs Temp Pulse Pulse Resp BP BP Pulse Ox 09/12/18 15:49 36.9 C 60 18 152/69 H 96 09/12/18 11:42 36.6 C 60 20 159/100 H 97 09/12/18 07:11 36.5 C 52 L 15 145/84 H 94 Laboratory Results Abnormal lab results 09/11/18 09/11/18 09/11/18 Range/Units 16:49 16:49 16:49 WBC 4.65 L (4.8-10.8) K/uL RBC 4.47 L (4.7-6.1) M/uL Hgb (14.0-18.0) g/dL Hct 41.8 L (42-52) % PT 19.2 H (9.0-12.0) Seconds POC INR (0.9-1.1) INR 2.0 H (0.9-1.1) POC BUN (7-18) mg/dl BUN 25 H (7-18) mg/dl BUN/Creatinine Ratio 20.1 H (10-20) Glucose 107 H (70-99) mg/dl POC Glucose (other) (70-99) mg/dl Hemoglobin A1c (4.5-5.6) % Ur Specific [place] (1.000-1.030) Digoxin (0.8-2.0) ng/ml 09/11/18 09/11/18 09/11/18 Range/Units 16:49 16:49 16:58 WBC (4.8-10.8) K/uL RBC (4.7-6.1) M/uL Hgb (14.0-18.0) g/dL Hct (42-52) % PT (9.0-12.0) Seconds POC INR 2.1 H (0.9-1.1) INR (0.9-1.1) POC BUN (7-18) mg/dl BUN (7-18) mg/dl BUN/Creatinine Ratio (10-20) Glucose (70-99) mg/dl POC Glucose (other) (70-99) mg/dl Hemoglobin A1c 5.9 H (4.5-5.6) % Ur Specific [place] (1.000-1.030) Digoxin 0.6 L (0.8-2.0) ng/ml 09/11/18 09/11/18 09/12/18 Range/Units 17:01 17:28 05:23 WBC 4.46 L (4.8-10.8) K/uL RBC 4.03 L (4.7-6.1) M/uL Hgb 12.8 L (14.0-18.0) g/dL Hct 37.7 L (42-52) % PT (9.0-12.0) Seconds POC INR (0.9-1.1) INR (0.9-1.1) POC BUN 25 H (7-18) mg/dl BUN (7-18) mg/dl BUN/Creatinine Ratio (10-20) Glucose (70-99) mg/dl POC Glucose (other) 103 H (70-99) mg/dl Hemoglobin A1c (4.5-5.6) % Ur Specific [place] 1.039 H (1.000-1.030) Digoxin (0.8-2.0) ng/ml 09/12/18 09/12/18 Range/Units 05:23 05:23 WBC (4.8-10.8) K/uL RBC (4.7-6.1) M/uL Hgb (14.0-18.0) g/dL Hct (42-52) % PT 19.5 H (9.0-12.0) Seconds POC INR (0.9-1.1) INR 2.0 H (0.9-1.1) POC BUN (7-18) mg/dl BUN 21 H (7-18) mg/dl BUN/Creatinine Ratio (10-20) Glucose (70-99) mg/dl POC Glucose (other) (70-99) mg/dl Hemoglobin A1c (4.5-5.6) % Ur Specific [place] (1.000-1.030) Digoxin (0.8-2.0) ng/ml Diagnostic Findings CT head- No acute intracranial abnormality. CTA head-Focal high-grade stenosis about the M1 segment right middle cerebral artery. 5 mm segment of 50% luminal narrowing involves the left P1 segment. No aneurysm or dissection. CTA neck- no significant stenosis, occlusion, or dissection identified within the carotid or vertebral arteries. MRI brain-No acute intracranial abnormality, specifically no acute or subacute infarction. Age-related involutional changes with moderate chronic microvascular ischemic disease. (1) Hypertension Hypertension type: unspecified Qualified Code(s): I10 - Essential (primary) hypertension
--- NOTE | 2018-09-12 17:04 | Hospitalist Progress Note ---
Date of Service September 12, 2018 Assessment & Plan (1) Aphasia: Expressive Aphasia Likely TIA H/O Possible punctate acute infarct within the right posterior frontal lobe and Recurrent TIAs Not a candidate for tPA CT head on admission showed no acute intracranial abnormality. Neck CTA showed no significant stenosis, occlusion, or dissection identified within the carotid or vertebral arteries. Head CTA showed Focal high-grade stenosis about the M1 segment right middle cerebral artery. 5 mm segment of 50% luminal narrowing involves the left P1 segment. MRI brain showed no acute intracranial abnormality, specifically no acute or subacute infarction. EEG done showed no evidence for focal or generalized encephalopathy or evidence for potentially epileptogenic activity ECHO showed no wall motion abnormality. No Interatrial shunt. EF 55- 60 % Neuro on board recommended to continue coumadin and aspirin Cardiology on board plan to refer for watchman device evaluation with Dr. Rudolph at [facility] outpatient PT/OT/speech on board LDL at goal Continue statin, coumadin and aspirin Atrial fibrillation Rate controlled Continue digoxin On Coumadin for anticoagulation, INR 2 Monitor PT/INR Hypothyroidism TSH WNL Continue levothyroxine Hyperlipidemia LDL at goal Continue Crestor BPH No acute issues DVT Px: on Coumadin Code Status Full Code Disposition: Discharge home today Subjective Pt was seen and examined Lying in bed with no distress with at bedside Pt said that he feels fine He said that his speech his back to normal He said that he feels fine and very anxious to go home Denies any chest pain, palpitation, dizziness, weakness and SOB Physical Exam Physical Exam: General- No acute distress Head- atraumatic Eyes- PERRL, EOMI, ENT- oropharynx clear Neck- supple, no JVD Lungs- clear to auscultation Heart- irregular rhythm Abdomen- normal bowel sounds, soft, nontender Extremities- no calf tenderness Neuro- alert, oriented x 3; PERRL, EOMI; no facial palsy; no dysarthria Skin- warm & dry Results & Data Vital Signs (Past 12 Hours) Vital Signs Temp Pulse Pulse Resp BP BP Pulse Ox 09/12/18 15:49 36.9 C 60 18 152/69 H 96 09/12/18 11:42 36.6 C 60 20 159/100 H 97 09/12/18 07:11 36.5 C 52 L 15 145/84 H 94
[2018-09-12] MEDS ORDERED: STROKE PATIENT DISCHARGE STA (17:44)
--- NOTE | 2018-09-15 00:34 | Discharge Summary ---
Date of Service September 12, 2018 Admission HPI Per Admitting Provider Patient is a 77-year-old male with history of atrial fibrillation, recurrent TIAs, possible punctate acute infarct within the right posterior frontal lobe, hypothyroidism, hyperlipidemia, BPH and other problems presents with history of sudden onset of expressive aphasia which started at around 4: 15 PM today afternoon. Patient noticed that he had difficulty expressing himself which lasted for about 1 hour. Patient received aspirin while in ED. Currently his symptoms resolved. Patient speech is usually slow and is at baseline as per patient's partner. CT head showed no acute intracranial abnormality. CT neck showed no significant stenosis, occlusion or dissection. Head CT showed focal high-grade stenosis about the M1 segment right middle cerebral artery; 5 mm segment of 50% luminal narrowing involves the left P1 segment; no aneurysm or dissection--findings unchanged from prior imaging as per ED physician. Denies any history of chest pain, SOB, palpitations, orthopnea, PND, dizziness, pedal edema, diaphoresis, cough, wheezing, hemoptysis, fever, chills, fall, head trauma, LOC, headache, weakness, numbness, change in vision, double/blurry vision, vertigo, facial deformity, bowel/bladder incontinence, nausea, vomiting, abdominal pain, diarrhea, dysuria, hematuria, recent travel, sick contact, recent change in medications. Patient is on Coumadin for chronic atrial fibrillation, INR is in therapeutic range. Admission Exam Per Admitting Provider Vitals signs as noted above General Appearance:Moderately built and nourished, no apparent distress Head: normocephalic, Atraumatic Eyes: normal inspection, EOMI Neck: supple, Trachea midline Respiratory/Chest: Normal breath sounds, CTA, No accessory muscle use Cardiovascular: Irregularly Irregular, No murmur Abdomen/GI:Soft, Non tender, Bowel sounds present Extremities/Musculoskelatal:normal inspection, no edema Neurologic/Psych:AAOX3, grossly no focal neurological deficits, Speech is slow at baseline Skin: normal color, warm Principal Diagnosis Aphasia Atrial fibrillation Dyslipidemia Hypothyroidism BPH Discharge Exam General- No acute distress Head- atraumatic Eyes- PERRL, EOMI, ENT- oropharynx clear Neck- supple, no JVD Lungs- clear to auscultation Heart- irregular rhythm Abdomen- normal bowel sounds, soft, nontender Extremities- no calf tenderness Neuro- alert, oriented x 3; PERRL, EOMI; no facial palsy; no dysarthria Skin- warm & dry Discharge Data Allergies Allergy/AdvReac Type Severity Reaction Status Date / Time No Known Allergies Allergy Unverified 09/11/18 18:37 Consultations 09/11/18 17:38 ED Decision to Admit Stat 09/11/18 19:55 Consult Case Management - Discharge Planning Routine Consult Neurology Routine Ordered Studies 09/11/18 16:52 CT head/brain wo con Stat 09/11/18 17:05 CT angio head w con Stat CT angio neck with con Stat 09/11/18 19:55 MR brain wo con Routine MR brain wo con HISTORY: 77 years-old Male Stroke like symptoms acute strokelike symptoms COMPARISON: CT head, CTA head neck of same day, brain MRI 07/30/2017 TECHNIQUE: Multiplanar multisequence MRI of the brain was obtained without the use of IV contrast. FINDINGS: Large field view walking dragline operator localizer images demonstrate no gross extracranial abnormality. No restricted diffusion to suggest acute or subacute infarction. Midline structures including the corpus callosum, brainstem, optic chiasm, pituitary and pineal glands appear unremarkable the sagittal T1 series. There is no cerebellar tonsillar herniation. Degenerative changes noted about the imaged cervical spine. Age-related involutional changes with ex vacuo ventriculomegaly. Moderate T2/FLAIR hyperintensities about the white matter. No acute intracranial hemorrhage, midline shift, abnormal extra axial collection, hydrocephalus or intracranial mass. The major flow voids at the level the skull base appear unremarkable. 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 Trace left mastoid effusion. Orbits are unremarkable. Mild mucosal thickening of the paranasal sinuses. The skull and soft tissues are unremarkable. IMPRESSION: 1. No acute intracranial abnormality, specifically no acute or subacute infarction. 2. Age-related involutional changes with moderate chronic microvascular ischemic disease. The above report was generated using voice recognition software. It may contain grammatical, syntax or spelling errors. Electronically signed by: Mikel Cornejo M.D. 09/11/2018 11:22 PM Dictated: 09/11/18 2315 Transcribed: 09/11/18 2315 NECK CTA HISTORY: stroke, apahsia TECHNIQUE: Multiaxial CT images of the neck were performed following the intravenous administration of contrast to evaluate the major cervical vessels. Maximum intensity projection images were also obtained. All measurements were calculated based on NASCET criteria. A dose lowering technique was utilized adhering to the principles of ALARA. COMPARISON STUDY: Neck CTA 07/29/2017. FINDINGS: The aortic arch and proximal great vessels are widely patent. There is no significant stenosis, occlusion, or dissection identified within the bilateral common carotid, internal carotid, or vertebral arteries. Stable sclerotic densities within the lung apices. This includes a nodular/irregular density within the left upper lobe anteriorly measuring 1.4 cm. A 1.3 cm left thyroid nodule, unchanged. The bilateral internal jugular veins appear patent. Hypoplastic right vertebral artery. Mild calcified plaque within the bilateral carotid bulbs. Mild calcified plaque within the aortic arch. IMPRESSION: No significant stenosis, occlusion, or dissection identified within the carotid or vertebral arteries. Electronically signed by: Juan Pablo Hidalgo M.D. 09/11/2018 5:26 PM Dictated: 09/11/18 172 Transcribed: 09/11/181720 CT angio head w con CLINICAL HISTORY: 77 years-old Male with stroke, apahsia. Acute strokelike symptoms COMPARISON STUDY: Head CT of same day TECHNIQUE: Following the IV administration of 119 cc of Optiray 320, CT angiog shakir of the brain was performed from the skull base to the vertex. Images are reviewed in the axial, sagittal, and coronal planes. 3-D MIPS images are created and assessed. IV contrast was administered without complication. A dose lowering technique was utilized adhering to the principles of ALARA. CT DOSE: 652.60 mGy.cm FINDINGS: CT ANGIOGRAM OF THE BRAIN: The imaged bilateral internal carotid arteries are patent. Calcified plaque about the cavernous and supraclinoid segments without high-grade stenosis. There is focal area of high-grade narrowing about the mid M1 segment of the right mid dle cerebral artery. The left middle cerebral artery and anterior cerebral arteries are patent and unremarkable. Dominant left vertebral artery with developmentally diminutive right vertebral artery. The basilar artery and right posterior cerebral artery are patent and unremarkable. There is a 5 mm segment of 50% luminal narrowing about the left P1 segment. There is no aneurysm, or proximal branch occlusion identified. Dural sinuses appear patent. IMPRESSION: 1. 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 2. 5 mm segment of 50% luminal narrowing involves the left P1 segment. 3. No aneurysm or dissection. The above report was generated using voice recognition software. It may contain grammatical, syntax or spelling errors. Electronically signed by: Mikel Cornejo M.D. 09/11/2018 5:23 PM Dictated: 09/11/181715 Transcribed: 09/11/181715 CT head/brain wo con CLINICAL HISTORY: 77 years-old Male with Stroke evaluation . Acute strokelike symptoms TECHNIQUE: Multiple axial CT images of the head were obtained without contrast. A dose lowering technique was utilized adhering to the principles of ALARA. CT DOSE: 614.27 mGy.cm COMPARISON: Brain MRI 07/30/2017, head CT 07/29/2017 FINDINGS: No acute intracranial hemorrhage, midline shift, intracranial mass, hydrocephalus, territorial ischemia or abnormal extra-axial collection. Age-re lated involutional changes with ex vacuo ventriculomegaly. Cerebral vascular calcifications are noted. Patchy white matter hypodensities suggest chronic microvascular ischemic disease. The calvarium is intact. The paranasal sinuses, mastoid air cells, and middle ear cavities are clear. IMPRESSION: No acute intracranial abnormality. The above report was generated using voice recognition software. It may contain grammatical, syntax or spelling errors. Electronically signed by: Mikel Cornejo M.D. 09/11/2018 5:07 PM Dictated: 09/11/181704 Transcribed: 09/11/181704 XR chest 1V portable HISTORY: weakness COMPARISON: Chest 07/29/2017. FINDINGS: Emphysema. No pneumothorax. Mild chronic interstitial thickening persists. No pleural effusions. The heart remains borderline enlarged. No new focal lung consolidations to suggest pneumonia. IMPRESSION: Stable chronic changes as described above. No acute process within the chest. Electronically signed by: Juan Pablo Hidalgo M.D. 09/11/2018 5:46 PM Dictated: 09/11/18 1745 Transcribed: 09/11/18 174 Hospital Course (1) Aphasia: Expressive Aphasia Likely TIA H/O Possible punctate acute infarct within the right posterior frontal lobe and Recurrent TIAs Not a candidate for tPA CT head on admission showed no acute intracranial abnormality. Neck CTA showed no significant stenosis, occlusion, or dissection identified within the carotid or vertebral arteries. Head CTA showed Focal high-grade stenosis about the M1 segment right middle cerebral artery. 5 mm segment of 50% luminal narrowing involves the left P1 segment. MRI brain showed no acute intracranial abnormality, specifically no acute or subacute infarction. EEG done showed no evidence for focal or generalized encephalopathy or evidence for potentially epileptogenic activity ECHO showed no wall motion abnormality. No Interatrial shunt. EF 55- 60 % Neuro on board recommended to continue coumadin and aspirin Cardiology on board plan to refer for watchman device evaluation with Dr. Rudolph at [facility] outpatient PT/OT/speech on board LDL at goal Continue statin, coumadin and aspirin Atrial fibrillation Rate controlled Continue digoxin On Coumadin for anticoagulation, INR 2 Monitor PT/INR Hypothyroidism TSH WNL Continue levothyroxine Hyperlipidemia LDL at goal Continue Crestor BPH No acute issues DVT Px: on Coumadin Code Status Full Code Disposition: Discharge home today Total Time Total Time Spent Total Time Spent (In Minutes): 35 minutes Total Time Includes: Examination of the Patient, Discharge Planning, Medication Reconciliation, Communication With Other Providers and Other Discharge Plan Discharge Items Patient Disposition: Home - Self-Care Reason For Visit: STROKE LIKE SYMPTOMS Discharge Diagnosis: Aphasia Atrial fibrillation Dyslipidemia Hypothyroidism Discharge Goals: Decrease discomfort, Improve disease control, Improve function and Increase independence Activity: Resume your previous activity Activity Comment: as tolerated Non-emergency contact: Primary Care Provider and Mill Operator Call non-emergency contact if: you have any medication questions Follow-up/Referrals: Vinnie Chand, [Primary Care Provider] - Diet: Heart Healthy Addtl Provider Instructions: Follow up with your primary care provider Dr. Vinnie Chand on 09/18 @ 1:05 PM Follow up with cardiology Dr. Rudolph on 10/11 @ 9:45 AM at the [facility] for the watchman evaluation Follow up with the coumadin clinic Continue monitor PT/INR Fall precaution Prescriptions: Continued aspirin 81 mg Tablet,Delayed Release (Dr/Ec) 81 mg PO DAILY RF: 0 acetaminophen 500 mg Tablet 1,000 mg PO Q6H PRN (Reason: Pain) RF: 0 warfarin 5 mg Tablet 10 mg PO MOFR@1600 RF: 0 warfarin 5 mg Tablet 5 mg PO SUTUWETHSA@1600 RF: 0 digoxin 250 mcg Tablet 250 mcg PO HS RF: 0 levothyroxine 100 mcg tablet 100 mcg PO QAM RF: 0 rosuvastatin 20 mg tablet 20 mg PO HS RF: 0 Stand-Alone Forms: [facility] Discharge Orders: Discharge Order (Routine); Ordered 09/12/18 Ordered By: Xiao Rutledge Admission Data Admit Date/Time: 09/11/18 18:57 Attending Provider: Xiao Rutledge Admit Provider: Dario Harrington Primary Care Provider: Vinnie Chand Other Providers: Dario Harrington ; Chaitanya Huntley Service: Telemetry Other Interventions: Discharge Summary Assessment (RN) Last Done: 09/12/18 17:54 DC Date/Time DO NOT enter until pt leaves facility: 09/12/18 18:31
[2018-09-15] MEDS ORDERED: WARFARIN SOD 10 MG TAB PO SCH (16:00)
== END 2018-09-12 18:31 | disposition home or self-care (01) | DRG 69 ==
LOC: ED 16:34 → 2S 18:57

== ENCOUNTER 2021-08-10 23:53 | Inpatient (IN) ==
--- NOTE | 2021-08-11 00:08 | Emergency Department Note ---
History of Present Illness General Chief complaint: TIA Symptoms Stated complaint: TIA SYMPTOMS Time Seen by Provider: 08/11/21 00:01 History of Present Illness Provider complaint: Stroke alert 80-year-old male with history of atrial fibrillation on Coumadin and history of TIA Presents emergency department with difficulty speaking. states earlier in the evening they were having to get to the other and the patient was acting normally. noticed that when he came up to bed today the patient was having difficulty getting his words out. She states that his last known normal was 2200. No reported falls. Patient is on Coumadin. Unsure of the last INR level. Home Medications Medication Instructions Recorded Confirmed Type acetaminophen 500 mg tablet 1,000 mg PO Q6H PRN 09/11/18 08/11/21 History aspirin 81 mg tablet,delayed 81 mg PO QPM 09/11/18 08/11/21 History release digoxin 250 mcg (0.25 mg) tablet 250 mcg PO HS 09/11/18 08/11/21 History rosuvastatin 20 mg tablet 20 mg PO HS 09/11/18 08/11/21 History warfarin 5 mg tablet 5 mg PO 4XWK 09/11/18 08/11/21 History warfarin 5 mg tablet 10 mg PO 3XWK 09/11/18 08/11/21 History finasteride 5 mg tablet 5 mg PO HS 08/03/19 08/11/21 History silodosin 8 mg capsule 8 mg PO QPM 04/23/21 08/11/21 History amoxicillin 500 mg capsule 2,000 mg PO DIRECTED PRN 08/11/21 08/11/21 History levothyroxine 112 mcg tablet 112 mcg PO DAILYBB 08/11/21 08/11/21 History Allergies Allergy/AdvReac Type Severity Reaction Status Date / Time alfuzosin AdvReac Intermediate DIZZINESS/W Verified 08/11/21 00:29 EAKNESS Past Med/Surg History Medical History (Updated 08/11/21 @ 01:23 by Lupillo Ngo) Atrial fibrillation Cerebrovascular disease "history TIA's" Dyslipidemia Hiatal hernia Hypothyroidism Stroke-like symptom Surgical History H/O vasectomy History of bilateral knee replacement "Dr. Mayer 2011 and 2013" History of inguinal hernia repair Social History Smoking Status: Never smoker Second Hand Exposure: No; Hx Alcohol Use: Yes Alcohol type: beer Hx Substance Use: No Preferred Language: Thai Communication Ability: Effective Web Engineer Required: No Beliefs That Will Affect Care: None Current Living Situation: Significant Other Feels Safe at Home: Yes Assistive Devices: Glasses and Hearing Aid - Left Review of Systems A total of 10 systems reviewed and were otherwise negative Physical Exam Vital Signs Vital Signs - 24 hr 08/10/21 23:55 08/11/21 00:37 08/11/21 00:49 Temperature 36.7 C Temperature Source Temporal Artery Scan Pulse Rate 85 Pulse Rate [Right Finger] 81 75 Pulse Rhythm Regular Pulse Strength Normal Respiratory Rate 18 19 20 Respiratory Effort / Characteristics Non-Labored Spontaneous Non-Labored Spontaneous Respiratory Depth Normal Normal Respiratory Pattern Regular Blood Pressure 167/94 H Blood Pressure [Right Arm] 195/134 H 167/106 H Blood Pressure Mean 118 Blood Pressure Mean [Right Arm] 154 126 Blood Pressure Position Sitting Pulse Oximetry 98 97 95 Oxygen Delivery Method Room Air Room Air Room Air Sepsis Recent Fever Within 48 Hours No Sepsis New/Unexplained Change in Mental Status N/A Sepsis Action Taken by Nursing No Action Required Physical Exam HENT: Exam performed. - Head: Normocephalic and atraumatic. - Right Ear: External ear normal. No mastoid tenderness. - Left Ear: External ear normal. No mastoid tenderness. - Mouth/Throat: The oropharynx is clear and moist. No trismus in the jaw. No dental abscesses or uvula swelling. No oropharyngeal exudate or tonsillar abscesses. EYES: Conjunctivae and EOM are normal. Pupils are equal, round, and reactive to light. Right eye exhibits no discharge. Left eye exhibits no discharge. No scleral icterus. NECK: Normal range of motion. Neck supple. No JVD present. No spinous process tenderness present. No carotid bruit present. No rigidity. No tracheal deviation and normal range of motion present. No Brudzinski's sign and no Kernig's sign noted. CV: Normal rate, irregular rhythm, normal heart sounds and intact distal pulses. There is no peripheral edema. Palpable radial pulses bue. PULM/CHEST: Effort normal and breath sounds normal. No respiratory distress. No stridor. He has no wheezes. He has no rales. - Chest Wall: He exhibits no tenderness. ABD: The abdomen is soft. Bowel sounds are normal. He has no distension. No mass is present. There is no tenderness. There is no rebound, no guarding, no Kate y's sign and no tenderness at McBurney's point. Rovsig negative. MUSC/SKEL: Normal range of motion. There is no peripheral edema, tenderness or deformity. LYMPH: No cervical adenopathy. NEURO: NIHSS: (9:2, 10:1) Course Course 0001: The patient was evaluated in room B1. A complete history and physical exam was performed Cardiac monitoring: An order was placed for continuous cardiac monitoring. The monitor shows a rate of 80 with atrial fib rhythm Code stroke called. 0014: POC INR is not working. EMR reviewed.Patient had a similar episode in 2019 and was diagnosed with stroke/TIA. He was continued on Coumadin and aspirin. 0024: Vital signs stable. POC INR is now working read 2.2. Discussed the case with Dr. Castillo [facility] the INR of 2.2 would exclude the patient from TNK. We discussed the case and if the patient's lab INR is subtherapeutic or if there is a large vessel occlusion on CTA, Dr. Castillo that he would evaluate the patient otherwise the patient is to be admitted for stroke. 0052: Vital signs stable. CT angio of the head shows a high-grade stenosis with a filling defect in the mid M1 segment of the right middle cerebral artery with intact distal runoff suspicious for nonoccluding thrombus mild stenosis of the right middle cerebral artery trifurcation branches with intact distal runoff. Discussed this case with [facility]neurology Dr. Castillo who also reviewed the scans and recommends that the patient be transferred to [facility] via helicopter. He recommends magnesium 2 g IV piggyback as well as 500 cc bolus and 125 cc/h after that. He recommends against TNK. He states he will log onto the teleneurology screen to evaluate the patient also. 0101: Spoke with radiology Dr. Gonzalez who states the CT angio of the neck and CT head without contrast are within normal limits. 0107: Vital signs stable. Dr. Castillo evaluate the patient via the telestroke cart in the out appears that the patient is improving. He states that there is no need for transfer at this time. He does still recommend a magnesium and normal saline fluids. He states that the patient should be admitted to this facility and have an MRI. He states that if the MRI is negative and EEG should be considered. He does not recommend any antiseizure medications at this time. 0117: Labs show a INR of 2.1 otherwise within normal limits. Alcohol 18. Patient will be admitted to the [facility] service Dr. Crump notified Administered Medications Discontinued Medications Ioversol (Optiray 320 125ml) 125 ml IV ONCE ONE Stop: 08/11/21 00:53 Last Admin: 08/11/21 00:53 Dose: 118 ml Documented by: [id number] Critical Care Time Critical Care Time: Yes Total Critical Care Time: 43 I have personally spent greater than 43 minutes of critical care time in the direct management of this patient. This includes bedside care, interpretation of diagnostic studies, and testing, discussion with consultants, patient, and family members, and other required patient management activities. This 43 minutes is in excess of all separately billable procedures. Medical Decision Making Laboratory Data Result diagrams: 08/11/21 00:05 08/11/21 00:05 Lab Results 08/11/21 08/11/21 08/11/21 Range/Units 00:05 00:05 00:05 WBC 4.78 L (4.8-10.8) K/uL RBC 4.34 L (4.7-6.1) M/uL Hgb 13.7 L (14.0-18.0) g/dL POC Hgb (14.0-18.0) g/dl Hct 40.2 L (42-52) % POC Hct (42-52) % MCV 92.6 (80-100) fL MCH 31.6 (25-34) pg MCHC 34.1 (32-36) g/dL RDW Std Deviation 43.9 (36.4-46.3) fL RDW Coeff of Fran 12.9 (11.5-14.5) % Plt Count 192 (130-400) K/uL MPV 10.4 (7.4-10.4) fL Immature Gran % (Auto) 0.2 % Neut % (Auto) 42.1 % Lymph % (Auto) 45.2 % [place] % (Auto) 9.6 % Eos % (Auto) 2.3 % Baso % (Auto) 0.6 % Neut # (Auto) 2.01 (1.4-6.5) K/uL Lymph # (Auto) 2.16 (1.2-3.4) K/uL [place] # (Auto) 0.46 (0.11-0.59) K/uL Eos # (Auto) 0.11 (0-0.5) K/uL Baso # (Auto) 0.03 (0-0.2) K/uL Immature Gran # (Auto) 0.01 (0.00-0.02) K/uL PT 21.5 H (9.0-12.0) Seconds POC INR (0.9-1.1) INR 2.1 H (0.9-1.1) APTT 33.5 H (21.0-31.0) Seconds PTT Ratio 1.2 POC Sodium (135-144) mmol/L Sodium 138 (136-145) mmol/L POC Potassium (3.3-5.0) mmol/L Potassium 3.7 (3.5-5.1) mmol/L POC Chloride (101-112) mmol/L Chloride 102 (98-107) mmol/L Carbon Dioxide 28 (21-32) mmol/L POC Total CO2 (24-31) mmol/L Anion Gap 8 (3-11) POC Anion Gap (16-25) mmol/L POC BUN (7-18) mg/dl BUN 23 (6-23) mg/dl Creatinine 1.24 (0.6-1.4) mg/dl POC Creatinine (0.6-1.3) mg/dl Est Cr Clr Drug Dosing 57.2 ml/min Est GFR ( Amer) 62.8 ml/min Est GFR (Non-Af Amer) 54.2 ml/min BUN/Creatinine Ratio 18.5 (10-20) Glucose 90 (70-99(Fasting)) mg/dl POC Glucose (70-99) mg/dl POC Glucose (other) (70-99) mg/dl Calcium 9.3 (8.5-10.1) mg/dl POC Ioniz Calcium Charli (1.12-1.32) mmol/l Magnesium 2.1 (1.7-2.4) mg/dl Total Bilirubin 0.7 (0.2-1.0) mg/dl AST 27 (13-39) U/L ALT 16 (7-52) U/L Alkaline Phosphatase 57 (34-104) U/L Troponin I High Sens 21.9 H (0-20) pg/ml Total Protein 7.2 (6.0-8.3) gm/dl Albumin 4.4 (3.4-5.0) gm/dl Globulin 2.8 (2.5-4.0) gm/dl Albumin/Globulin Ratio 1.6 (0.9-2) Digoxin (0.8-2.0) ng/ml Ethyl Alcohol mg/dL (<10.0) mg/dl SARS-CoV-2, RNA, NAAT (NEGATIVE) 08/11/21 08/11/21 08/11/21 Range/Units 00:07 00:07 00:07 WBC (4.8-10.8) K/uL RBC (4.7-6.1) M/uL Hgb (14.0-18.0) g/dL POC Hgb (14.0-18.0) g/dl Hct (42-52) % POC Hct (42-52) % MCV (80-100) fL MCH (25-34) pg MCHC (32-36) g/dL RDW Std Deviation (36.4-46.3) fL RDW Coeff of Fran (11.5-14.5) % Plt Count (130-400) K/uL MPV (7.4-10.4) fL Immature Gran % (Auto) % Neut % (Auto) % Lymph % (Auto) % [place] % (Auto) % Eos % (Auto) % Baso % (Auto) % Neut # (Auto) (1.4-6.5) K/uL Lymph # (Auto) (1.2-3.4) K/uL [place] # (Auto) (0.11-0.59) K/uL Eos # (Auto) (0-0.5) K/uL Baso # (Auto) (0-0.2) K/uL Immature Gran # (Auto) (0.00-0.02) K/uL PT (9.0-12.0) Seconds POC INR (0.9-1.1) INR (0.9-1.1) APTT (21.0-31.0) Seconds PTT Ratio POC Sodium (135-144) mmol/L Sodium (136-145) mmol/L POC Potassium (3.3-5.0) mmol/L Potassium (3.5-5.1) mmol/L POC Chloride (101-112) mmol/L Chloride (98-107) mmol/L Carbon Dioxide (21-32) mmol/L POC Total CO2 (24-31) mmol/L Anion Gap (3-11) POC Anion Gap (16-25) mmol/L POC BUN (7-18) mg/dl BUN (6-23) mg/dl Creatinine (0.6-1.4) mg/dl POC Creatinine (0.6-1.3) mg/dl Est Cr Clr Drug Dosing ml/min Est GFR ( Amer) ml/min Est GFR (Non-Af Amer) ml/min BUN/Creatinine Ratio (10-20) Glucose (70-99(Fasting)) mg/dl POC Glucose 118 H (70-99) mg/dl POC Glucose (other) (70-99) mg/dl Calcium (8.5-10.1) mg/dl POC Ioniz Calcium Charli (1.12-1.32) mmol/l Magnesium (1.7-2.4) mg/dl Total Bilirubin (0.2-1.0) mg/dl AST (13-39) U/L ALT (7-52) U/L Alkaline Phosphatase (34-104) U/L Troponin I High Sens (0-20) pg/ml Total Protein (6.0-8.3) gm/dl Albumin (3.4-5.0) gm/dl Globulin (2.5-4.0) gm/dl Albumin/Globulin Ratio (0.9-2) Digoxin 0.8 (0.8-2.0) ng/ml Ethyl Alcohol mg/dL 18.1 H (<10.0) mg/dl SARS-CoV-2, RNA, NAAT (NEGATIVE) 08/11/21 08/11/21 08/11/21 Range/Units 00:12 00:15 00:16 WBC (4.8-10.8) K/uL RBC (4.7-6.1) M/uL Hgb (14.0-18.0) g/dL POC Hgb 14.3 (14.0-18.0) g/dl Hct (42-52) % POC Hct 42 (42-52) % MCV (80-100) fL MCH (25-34) pg MCHC (32-36) g/dL RDW Std Deviation (36.4-46.3) fL RDW Coeff of Fran (11.5-14.5) % Plt Count (130-400) K/uL MPV (7.4-10.4) fL Immature Gran % (Auto) % Neut % (Auto) % Lymph % (Auto) % [place] % (Auto) % Eos % (Auto) % Baso % (Auto) % Neut # (Auto) (1.4-6.5) K/uL Lymph # (Auto) (1.2-3.4) K/uL [place] # (Auto) (0.11-0.59) K/uL Eos # (Auto) (0-0.5) K/uL Baso # (Auto) (0-0.2) K/uL Immature Gran # (Auto) (0.00-0.02) K/uL PT (9.0-12.0) Seconds POC INR 2.3 H (0.9-1.1) INR (0.9-1.1) APTT (21.0-31.0) Seconds PTT Ratio POC Sodium 139 (135-144) mmol/L Sodium (136-145) mmol/L POC Potassium 3.6 (3.3-5.0) mmol/L Potassium (3.5-5.1) mmol/L POC Chloride 100 L (101-112) mmol/L Chloride (98-107) mmol/L Carbon Dioxide (21-32) mmol/L POC Total CO2 27 (24-31) mmol/L Anion Gap (3-11) POC Anion Gap 17.0 (16-25) mmol/L POC BUN 21 H (7-18) mg/dl BUN (6-23) mg/dl Creatinine (0.6-1.4) mg/dl POC Creatinine 1.2 (0.6-1.3) mg/dl Est Cr Clr Drug Dosing ml/min Est GFR ( Amer) ml/min Est GFR (Non-Af Amer) ml/min BUN/Creatinine Ratio (10-20) Glucose (70-99(Fasting)) mg/dl POC Glucose (70-99) mg/dl POC Glucose (other) 94 (70-99) mg/dl Calcium (8.5-10.1) mg/dl POC Ioniz Calcium Charli 1.21 (1.12-1.32) mmol/l Magnesium (1.7-2.4) mg/dl Total Bilirubin (0.2-1.0) mg/dl AST (13-39) U/L ALT (7-52) U/L Alkaline Phosphatase (34-104) U/L Troponin I High Sens (0-20) pg/ml Total Protein (6.0-8.3) gm/dl Albumin (3.4-5.0) gm/dl Globulin (2.5-4.0) gm/dl Albumin/Globulin Ratio (0.9-2) Digoxin (0.8-2.0) ng/ml Ethyl Alcohol mg/dL (<10.0) mg/dl SARS-CoV-2, RNA, NAAT NEGATIVE (NEGATIVE) Imaging Data Radiologist's Impression: PreliminaryFindingsOnly See Final Report For Complete Findings CTAHEAD: IMPRESSION:High-grade stenosiswith a filling defect in the mid M1 segment of the right middle cerebral arterywith intact distal runoff suspicious for nonoccluding thrombus. Mild stenosis of right middle cerebral arterytrifurcation brancheswith intact distal runoff. OTHER FINDINGS: Mild atherosclerotic plaque at the cavernous internal carotid arterieswithout a hemodynamically significant stenosis. The anterior circulation including the bilateral intracranial internal carotid arteries, left middle and bilateral anterior cerebral arteries are otherwise normal in appearance Dominant right vertebral arterywith minimal athe rosclerotic plaque. Markedlyhypoplastic/small left vertebral arterywhich remains patent to the basilar artery. Mild stenosiswithout occlusion of the proximal P2 segment of the left posterior cerebral artery. No aneurysmor vascular malformation. Radiologist: Tashi Gonzalez M.D. Study ready at 00:38 and initial results transmitted at 00:50 Communications: Clear Time Type Notes Call Doctor Above results PreliminaryFindingsOnly See Final Report For Complete Findings CT ANGIO NECK IMPRESSION:No acute abnormality. FINDINGS: No thrombosis of occlusion. No evidence for dissection. Mild atherosclerotic plaque at the bilateral carotid bulbswithout a hemodynamicallysignificant stenosis. Diffuselyhypoplastic right vertebral artery. Dominant left vertebral artery. Both vertebral arteries are patent. Bilateral carotid and vertebral arteries are otherwise unremarkable. Degenerative changes of the cervical spine. Biapical lung scarring. Radiologist: Tashi Gonzalez M.D. Study ready at 00:46 and initial results transmitted at 01:03 Communications: Clear Time Type Notes 08/11/21 01:05 Call Doctor Regarding Stroke, called Dr. Ngo on 08/11 01:05 (-04:00) PreliminaryFindingsOnly See Final Report For Complete Findings CT HEAD: No acute abnormality. Compared to MRI of the brain 09/11/2018. No acute intracranial hemorrhage or abnormal extra-axial fluid collection. No acute stroke. Non- specificwhite matter changes, most commonlyseen with small vessel disease. Age- appropriate central and peripheral atrophy. No midline shift. No paranasal sinus air-fluid level. No fracture. Radiologist: Tashi Gonzalez M.D. Study ready at 00:46 and initial results transmitted at 00:58 Communications: Clear Time Type Notes 08/11/21 01:05 Call Doctor Regarding Stroke, called Dr. Ngo on 08/11 01:05 (-04:00) ECG Data Indication: + weakness Rate (beats per minute): 84 Rhythm: + atrial fibrillation ECG Intervals/blocks: + Normal QRS and + Normal QT-c ECG ST segments: + Normal ST segments MDM Narrative 0001: The patient was evaluated in room B1. A complete history and physical exam was performed Cardiac monitoring: An order was placed for continuous cardiac monitoring. The monitor shows a rate of 80 with atrial fib rhythm Code stroke called. 0014: POC INR is not working. EMR reviewed.Patient had a similar episode in 2019 and was diagnosed with stroke/TIA. He was continued on Coumadin and aspirin. 0024: Vital signs stable. POC INR is now working read 2.2. Discussed the case with Dr. Castillo [facility] the INR of 2.2 would exclude the patient from TNK. We discussed the case and if the patient's lab INR is subtherapeutic or if there is a large vessel occlusion on CTA, Dr. Castillo that he would evaluate the patient otherwise the patient is to be admitted for stroke. 0052: Vital signs stable. CT angio of the head shows a high-grade stenosis with a filling defect in the mid M1 segment of the right middle cerebral artery with intact distal runoff suspicious for nonoccluding thrombus mild stenosis of the right middle cerebral artery trifurcation branches with intact distal runoff. Discussed this case with [facility] Dr. Castillo who also reviewed the scans and recommends that the patient be transferred to [facility] via helicopter. He recommends magnesium 2 g IV piggyback as well as 500 cc bolus and 125 cc/h after that. He recommends against TNK. He states he will log onto the teleneurology screen to evaluate the patient also. 0101: Spoke with radiology Dr. Gonzalez who states the CT angio of the neck and CT head without contrast are within normal limits. 0107: Vital signs stable. Dr. Castillo evaluate the patient via the telestroke cart in the out appears that the patient is improving. He states that there is no need for transfer at this time. He does still recommend a magnesium and normal saline fluids. He states that the patient should be admitted to this facility and have an MRI. He states that if the MRI is negative and EEG should be considered. He does not recommend any antiseizure medications at this time. 0117: Labs show a INR of 2.1 otherwise within normal limits. Alcohol 18. [facility] Crump notified Impression & Plan Acute CVA (cerebrovascular accident) Discharge Plan Visit Data Chief Complaint: TIA Symptoms Stated Complaint: TIA SYMPTOMS ED Provider: Lupillo Ngo Discharge Problem: Acute CVA (cerebrovascular accident) Patient Disposition: Admitted As Inpatient Forms Stand Alone Forms: [facility] Prescriptions Prescriptions: No Action aspirin 81 mg Tablet,Delayed Release (Dr/Ec) 81 mg PO QPM RF: 0 acetaminophen 500 mg Tablet 1,000 mg PO Q6H PRN (Reason: Pain) RF: 0 warfarin 5 mg Tablet 10 mg PO 3XWK RF: 0 warfarin 5 mg Tablet 5 mg PO 4XWK RF: 0 digoxin 250 mcg Tablet 250 mcg PO HS RF: 0 rosuvastatin 20 mg tablet 20 mg PO HS RF: 0 finasteride 5 mg Tablet 5 mg PO HS RF: 0 silodosin 8 mg Capsule 8 mg PO QPM RF: 0 amoxicillin 500 mg capsule 2,000 mg PO DIRECTED PRN (Reason: 1 HOUR PRIOR TO DENTAL APPT.) RF: 0 levothyroxine 112 mcg tablet 112 mcg PO DAILYBB RF: 0 Referrals Referrals: Uday Roche DO [Primary Care Provider] -
[2021-08-11 00:24] LABS: iSTAT Creatinine 1.2 mg/dl (0.6-1.3); iSTAT Hemoglobin 14.3 g/dl (14.0-18.0); iSTAT Ionized Calcium 1.21 mmol/l (1.12-1.32); iSTAT Potassium 3.6 mmol/L (3.3-5.0)
[2021-08-11 00:25] LABS: Basophils # (auto) 0.03 K/uL (0-0.2); Basophils % (auto) 0.6 %; Eosinophils # (auto) 0.11 K/uL (0-0.5); Eosinophils % (auto) 2.3 %; Hematocrit (blood only) 40.2 % (42-52); Hemoglobin 13.7 g/dL (14.0-18.0); Immature Granulocytes # (auto) 0.01 K/uL (0.00-0.02); Immature Granulocytes % (auto) 0.2 %; Lymphocytes # (auto) 2.16 K/uL (1.2-3.4); Lymphocytes % (auto) 45.2 %; Mean Corpuscular Hemoglobin 31.6 pg (25-34); Mean Corpuscular Hgb Conc 34.1 g/dL (32-36); Mean Corpuscular Volume 92.6 fL (80-100); Mean Platelet Volume 10.4 fL (7.4-10.4); Monocytes # (auto) 0.46 K/uL (0.11-0.59); Monocytes % (auto) 9.6 %; Neutrophils # (auto) 2.01 K/uL (1.4-6.5); Neutrophils % (auto) 42.1 %; Platelet Count 192 K/uL (130-400); RDW Coefficient of Variation 12.9 % (11.5-14.5); RDW Standard Deviation 43.9 fL (36.4-46.3); Red Blood Count 4.34 M/uL (4.7-6.1); White Blood Count 4.78 K/uL (4.8-10.8)
[2021-08-11 00:36] LABS: INR 2.1 (0.9-1.1); Partial Thromboplastin Ratio 1.2; Partial Thromboplastin Time 33.5 Seconds (21.0-31.0); Prothrombin Time 21.5 Seconds (9.0-12.0)
[2021-08-11 00:43] LABS: Albumin Globulin Ratio 1.6 (0.9-2); Albumin Level 4.4 gm/dl (3.4-5.0); BUN Creatinine Ratio 18.5 (10-20); Bilirubin,Total 0.7 mg/dl (0.2-1.0); Calcium 9.3 mg/dl (8.5-10.1); Creatinine Clr Calc Pharmacy 57.2 ml/min; Est GFR (African American) 62.8 ml/min; Est GFR (Non-African American) 54.2 ml/min; Globulin 2.8 gm/dl (2.5-4.0); Magnesium 2.1 mg/dl (1.7-2.4); Potassium 3.7 mmol/L (3.5-5.1); Total Protein 7.2 gm/dl (6.0-8.3)
[2021-08-11 00:49] LABS: Troponin I High Sensitivity 21.9 pg/ml (0-20)
[2021-08-11] MEDS ORDERED: OPTIRAY 320 125ml IV ONE (00:52)
[2021-08-11] MEDS ORDERED: SODIUM CHLORIDE 0.9% 1000ML 500 ML IV ONE (01:13)
[2021-08-11] MEDS ORDERED: SODIUM CHLORIDE 0.9% 500 ML IV SCH (01:15)
[2021-08-11] MEDS: MAGNESIUM SULFATE / D5W 1 GM/100 ML BAG IV SCH ×2 (01:29→02:26)
[2021-08-11] MEDS ORDERED: hydrALAZINE HCL 20 MG/ML VIAL IV ONE ×2 (02:41→06:30)
--- NOTE | 2021-08-11 02:45 | History & Physical Report ---
Date of Service August 11, 2021 Assessment & Plan (1) History of recurrent TIAs: Plan: hx CVA A. fib on Coumadin, rate controlled, INR therapeutic hypertension, elevated secondary to TIA hyperlipidemia on statin Rx hypothyroidism, euthyroid as of recent outpatient TSH chronic anemia, hemoglobin at baseline BPH symptoms at baseline daily alcohol intake, no abuse concerns as per patient/partner Hyperglycemia likely prediabetes, hemoglobin A1c of 5.9 last 2019 Medical telemetry MRI brain, TTE for stroke work-up Permissive hypertension [maintain SBP at least 180s for now as Dr. Abdi ([facility] [place]) recommendation] EEG to rule out seizures as per additional specialist recommendation. Neurology consult Re: Recurrent TIA Update hemoglobin A1c DVT prophylaxis. Coumadin INR goal between 2 and 3 Full code Patient partner requesting updates from providers. Ms. Ilsa Valentin, contact #[phone]. Text document was generated using X BODY recognition software. It may contain grammatical or spelling errors. Kindly contact undersigned for clarification of any documentation item in question. History of Present Illness Chief Complaint: Aphasia Primary Care Provider: Uday Roche, History obtained from patient, family, and records. Medical history significant for CVA, A. fib on Coumadin, hypertension, hyperlipidemia, hypothyroidism, chronic anemia (baseline hemoglobin of 13), BPH, daily alcohol intake. Last confinement September 2018 for TIA symptoms presenting as expressive aphasia. Patient was getting ready to go to bed last night when he noted expressive aphasia symptoms similar to 2019 incident. Patient could not get words out as per partner. No witnessed seizures, tongue biting, incontinence. Patient compliant with medications. Patient denies chest pain, SOB, headache symptoms. Stroke alert called upon arrival at the ER. Patient symptoms eventually improved. Patient almost back to baseline as per partner.. 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 Allergies Allergy/AdvReac Type Severity Reaction Status Date / Time alfuzosin AdvReac Intermediate DIZZINESS/W Verified 08/11/21 00:29 EAKNESS Home Medications Medication Instructions Recorded Confirmed Type acetaminophen 500 mg tablet 1,000 mg PO Q6H PRN 09/11/18 08/11/21 History aspirin 81 mg tablet,delayed 81 mg PO QPM 09/11/18 08/11/21 History release digoxin 250 mcg (0.25 mg) tablet 250 mcg PO HS 09/11/18 08/11/21 History rosuvastatin 20 mg tablet 20 mg PO HS 09/11/18 08/11/21 History warfarin 5 mg tablet 5 mg PO 4XWK 09/11/18 08/11/21 History warfarin 5 mg tablet 10 mg PO 3XWK 09/11/18 08/11/21 History finasteride 5 mg tablet 5 mg PO HS 08/03/19 08/11/21 History silodosin 8 mg capsule 8 mg PO QPM 04/23/21 08/11/21 History amoxicillin 500 mg capsule 2,000 mg PO DIRECTED PRN 08/11/21 08/11/21 History levothyroxine 112 mcg tablet 112 mcg PO DAILYBB 08/11/21 08/11/21 History Past Med/Surg History Medical History (Updated 08/11/21 @ 07:50 by Amercio Thurston MD) Atrial fibrillation Cerebrovascular disease "history TIA's" Dyslipidemia Hiatal hernia Hypothyroidism Stroke-like symptom Surgical History H/O vasectomy History of bilateral knee replacement "Dr. Mayer 2011 and 2013" History of inguinal hernia repair Social History Smoking Status: Former smoker Second Hand Exposure: No; Hx Alcohol Use: Yes Alcohol type: beer Hx Substance Use: No Preferred Language: Sami Communication Ability: Effective Manager Play Required: No Beliefs That Will Affect Care: None Current Living Situation: Other Current Living Situation Comment: lives with a woman, not Other Information That Helps Us Care for You: No Feels Safe at Home: Yes Safety Concerns: Feels Safe At This Time Assistive Devices: Glasses and Hearing Aid - Bilateral Review of Systems Review of Systems: As per HPI, all other systems reviewed and negative Physical Exam Physical Exam: GENERAL: Comfortable, pleasant, speech somewhat slow, no respiratory distress SKIN: Normal color, warm HEENT: [place] palpebral conjunctivae, no ptosis, dry buccal mucosa NECK : Supple, no tenderness CHEST : CTA, no tenderness HEART : Irregular, no obvious murmurs ABDOMEN: Some distention, nontender EXTREMITIES : No LE swelling/tenderness, no other conspicuous deformities noted NEUROLOGIC : Coherent, no facial asymmetry, speech somewhat slow, gait and stance not assessed Results & Data Results & Data ([facility]) Vital Signs (Past 12 Hours) Vital Signs Temp Pulse Pulse Resp BP BP Pulse Ox 08/11/21 02:26 65 16 180/109 H 96 08/11/21 02:07 66 19 185/107 H 95 08/11/21 01:46 67 16 173/112 H 97 08/11/21 00:49 75 20 167/106 H 95 08/11/21 00:37 81 19 195/134 H 97 08/10/21 23:55 36.7 C 85 18 167/94 H 98 Laboratory Results Laboratory Results WBC 4.78 K/uL (4.8-10.8) L 08/11/21 00:05 RBC 4.34 M/uL (4.7-6.1) L 08/11/21 00:05 Hgb 13.7 g/dL (14.0-18.0) L 08/11/21 00:05 POC Hgb 14.3 g/dl (14.0-18.0) 08/11/21 00:12 Hct 40.2 % (42-52) L 08/11/21 00:05 POC Hct 42 % (42-52) 08/11/21 00:12 MCV 92.6 fL (80-100) 08/11/21 00:05 MCH 31.6 pg (25-34) 08/11/21 00:05 MCHC 34.1 g/dL (32-36) 08/11/21 00:05 RDW Std Deviation 43.9 fL (36.4-46.3) 08/11/21 00:05 RDW Coeff of Fran 12.9 % (11.5-14.5) 08/11/21 00:05 Plt Count 192 K/uL (130-400) 08/11/21 00:05 MPV 10.4 fL (7.4-10.4) 08/11/21 00:05 Immature Gran % (Auto) 0.2 % 08/11/21 00:05 Neut % (Auto) 42.1 % 08/11/21 00:05 Lymph % (Auto) 45.2 % 08/11/21 00:05 Wolfe % (Auto) 9.6 % 08/11/21 00:05 Eos % (Auto) 2.3 % 08/11/21 00:05 Baso % (Auto) 0.6 % 08/11/21 00:05 Neut # (Auto) 2.01 K/uL (1.4-6.5) 08/11/21 00:05 Lymph # (Auto) 2.16 K/uL (1.2-3.4) 08/11/21 00:05 Wolfe # (Auto) 0.46 K/uL (0.11-0.59) 08/11/21 00:05 Eos # (Auto) 0.11 K/uL (0-0.5) 08/11/21 00:05 Baso # (Auto) 0.03 K/uL (0-0.2) 08/11/21 00:05 Immature Gran # (Auto) 0.01 K/uL (0.00-0.02) 08/11/21 00:05 PT 21.5 Seconds (9.0-12.0) H 08/11/21 00:05 POC INR 2.3 (0.9-1.1) H 08/11/21 00:15 INR 2.1 (0.9-1.1) H 08/11/21 00:05 APTT 33.5 Seconds (21.0-31.0) H 08/11/21 00:05 PTT Ratio 1.2 08/11/21 00:05 POC Sodium 139 mmol/L (135-144) 08/11/21 00:12 Sodium 138 mmol/L (136-145) 08/11/21 00:05 POC Potassium 3.6 mmol/L (3.3-5.0) 08/11/21 00:12 Potassium 3.7 mmol/L (3.5-5.1) 08/11/21 00:05 POC Chloride 100 mmol/L (101-112) L 08/11/21 00:12 Chloride 102 mmol/L (98-107) 08/11/21 00:05 Carbon Dioxide 28 mmol/L (21-32) 08/11/21 00:05 POC Total CO2 27 mmol/L (24-31) 08/11/21 00:12 Anion Gap 8 (3-11) 08/11/21 00:05 POC Anion Gap 17.0 mmol/L (16-25) 08/11/21 00:12 POC BUN 21 mg/dl (7-18) H 08/11/21 00:12 BUN 23 mg/dl (6-23) 08/11/21 00:05 Creatinine 1.24 mg/dl (0.6-1.4) 08/11/21 00:05 POC Creatinine 1.2 mg/dl (0.6-1.3) 08/11/21 00:12 Est Cr Clr Drug Dosing 57.2 ml/min 08/11/21 00:05 Est GFR ( Amer) 62.8 ml/min 08/11/21 00:05 Est GFR (Non-Af Amer) 54.2 ml/min 08/11/21 00:05 BUN/Creatinine Ratio 18.5 (10-20) 08/11/21 00:05 Glucose 90 mg/dl (70-99(Fasting)) 08/11/21 00:05 POC Glucose 118 mg/dl (70-99) H 08/11/21 00:07 POC Glucose (other) 94 mg/dl (70-99) 08/11/21 00:12 Calcium 9.3 mg/dl (8.5-10.1) 08/11/21 00:05 POC Ioniz Calcium Charli 1.21 mmol/l (1.12-1.32) 08/11/21 00:12 Magnesium 2.1 mg/dl (1.7-2.4) 08/11/21 00:05 Total Bilirubin 0.7 mg/dl (0.2-1.0) 08/11/21 00:05 AST 27 U/L (13-39) 08/11/21 00:05 ALT 16 U/L (7-52) 08/11/21 00:05 Alkaline Phosphatase 57 U/L (34-104) 08/11/21 00:05 Troponin I High Sens 21.9 pg/ml (0-20) H 08/11/21 00:05 Total Protein 7.2 gm/dl (6.0-8.3) 08/11/21 00:05 Albumin 4.4 gm/dl (3.4-5.0) 08/11/21 00:05 Globulin 2.8 gm/dl (2.5-4.0) 08/11/21 00:05 Albumin/Globulin Ratio 1.6 (0.9-2) 08/11/21 00:05 Digoxin 0.8 ng/ml (0.8-2.0) 08/11/21 00:07 Ethyl Alcohol mg/dL 18.1 mg/dl (<10.0) H 08/11/21 00:07 SARS-CoV-2, RNA, NAAT NEGATIVE (NEGATIVE) 08/11/21 00:16 Blood Type O Positive 08/11/21 00:05 Antibody Screen NEGATIVE 08/11/21 00:[address] head initial read: No acute abnormality. Compared to MRI of the brain 09/11/2018. No acute intracranial hemorrhage or abnormal extra-axial fluid collection. No acute stroke. Non-specificwhite matter changes, most commonlyseen with small vessel disease. Age-appropriate central and peripheral atrophy. No midline shift. No paranasal sinus air-fluid level. No fracture CTA head initial read: High-grade stenosiswith a filling defect in the mid M1 segment of the right middle cerebral arterywith intact distal runoff suspicious for nonoccluding thrombus. Mild stenosis of right middle cerebral arterytrifurcation brancheswith intact distal runoff. OTHER FINDINGS: Mild atherosclerotic plaque at the cavernous internal carotid arterieswithout a hemodynamically significant stenosis. The anterior circulation including the bilateral intracranial internal carotid arteries, left middle and bilateral anterior cerebral arteries are otherwise normal in appearance Dominant right vertebral arterywith minimal atherosclerotic plaque. Markedlyhypoplastic/small left vertebral arterywhich remains patent to the basilar artery. Mild stenosiswithout occlusion of the proximal P2 segment of the left posterior cerebral artery. No aneurysmor vascular malformation. CTA neck initial read: No thrombosis of occlusion. No evidence for dissection. Mild atherosclerotic plaque at the bilateral carotid bulbswithout a hemodynamicallysignificant stenosis. Diffuselyhypoplastic right vertebral artery. Dominant left vertebral artery. Both vertebral arteries are patent. Bilateral carotid and vertebral arteries are otherwise unremarkable. Degenerative changes of the cervical spine. Biapical lung scarring. Chest x-ray as per my interpretation cardiomegaly, minimal congestion EKG as per my interpretation : Rate 85, A. fib, normal axis, incomplete RBBB, no ischemia, PVCs
[2021-08-11] MEDS ORDERED: ACETAMINOPHEN 325 MG TAB PO PRN (04:48)
[2021-08-11] MEDS ORDERED: PHARMACIST DISCHARGE MED REC CONSULT PRN (04:48)
[2021-08-11] MEDS ORDERED: LACTATED RINGER'S 1,000 ML IV ONE (04:48)
[2021-08-11 05:57] LABS: Basophils % (auto) 0.7 %; Hematocrit (blood only) 38.4 % (42-52); Hemoglobin 13.4 g/dL (14.0-18.0); Immature Granulocytes % (auto) 0.2 %; Lymphocytes % (auto) 40.7 %; Mean Corpuscular Hemoglobin 32.8 pg (25-34); Mean Corpuscular Hgb Conc 34.9 g/dL (32-36); Mean Corpuscular Volume 93.9 fL (80-100); Mean Platelet Volume 10.3 fL (7.4-10.4); Monocytes % (auto) 9.8 %; Neutrophils % (auto) 46.6 %; Platelet Count 181 K/uL (130-400); RDW Coefficient of Variation 12.8 % (11.5-14.5); RDW Standard Deviation 44.1 fL (36.4-46.3); Red Blood Count 4.09 M/uL (4.7-6.1); White Blood Count 4.47 K/uL (4.8-10.8)
[2021-08-11 05:58] LABS: Basophils # (auto) 0.03 K/uL (0-0.2); Eosinophils # (auto) 0.09 K/uL (0-0.5); Immature Granulocytes # (auto) 0.01 K/uL (0.00-0.02); Lymphocytes # (auto) 1.82 K/uL (1.2-3.4); Monocytes # (auto) 0.44 K/uL (0.11-0.59); Neutrophils # (auto) 2.08 K/uL (1.4-6.5)
[2021-08-11] MEDS: LEVOTHYROXINE SODIUM 112 MCG TABLET PO SCH (06:00)
[2021-08-11 06:06] LABS: INR 2.1 (0.9-1.1); Prothrombin Time 21.4 Seconds (9.0-12.0)
[2021-08-11 06:39] LABS: Estimated Average Glucose 120 mg/dl; Hemoglobin A1C 5.8 % (4.5-5.6)
[2021-08-11 06:40] LABS: BUN Creatinine Ratio 19.6 (10-20); Calcium 9.2 mg/dl (8.5-10.1); Chol HDL Ratio 2.8 (0-5); Creatinine Clr Calc Pharmacy 68.8 ml/min; Est GFR (African American) 79.5 ml/min; Est GFR (Non-African American) 68.6 ml/min; Potassium 4.1 mmol/L (3.5-5.1); Troponin I High Sensitivity 22.3 pg/ml (0-20)
--- NOTE | 2021-08-11 07:18 | CT Scan Report ---
CT ANGIOGRAM OF THE NECK CLINICAL HISTORY: Strokelike symptoms. Slurred speech. COMPARISON STUDY: CT angiogram of the neck dated 09/11/2018. TECHNIQUE: Following the IV administration of 118 of Optiray 320, CT angiogram of the neck was perfor med from the aortic arch to the skull base. Images are reviewed in the axial, sagittal, and coronal p lanes. 3-D MIPS images are created and assessed. IV contrast was administered without complication. A ll measurements were calculated based on NASCET criteria. A dose lowering technique was utilized adh ering to the principles of ALARA. FINDINGS: Thoracic aorta: There is atherosclerotic calcification of the thoracic aorta. Visualized portions of the thoracic aorta are normal in caliber. The aortic arch demonstrates standard 3-vessel anatomy. Right carotid arterial system: The right common carotid artery is widely patent, as are the right int ernal and external carotid arteries. Calcified plaque is noted in the carotid bulb. Left carotid arterial system: The left common carotid artery is widely patent, as are the left biology intern al and external carotid arteries. Calcified plaque is noted in the carotid bulb. Vertebral arteries: The left vertebral artery is dominant and widely patent. The right vertebral ted ry is diminutive and also likely patent. Subclavian arteries: Widely patent bilaterally. Intracranial vasculature: The visualized intracranial vessels at the skull base are patent. There is severe focal stenosis of the right middle cerebral artery seen on axial image #480. Jugular veins: Widely patent bilaterally. Brain parenchyma: The visualized brain parenchyma the skull base is within normal limits noting age-r elated involutional change. Lung apices: There is biapical scarring. A 1.8 cm pleural-based opacity in the anterior left upper lo be seen on image #101 is unchanged from 2019. Soft tissues: The visualized pharyngeal soft tissues are normal in appearance noting angiographic pha se technique. The oropharyngeal airway appears widely patent. The salivary and thyroid glands are nor mal in appearance. No cervical lymphadenopathy is seen. Skeletal structures: The skeletal structures are osteopenic. The visualized calvarium at the skull ba se appears intact. The imaged cervical spine is maintained noting multilevel spondylosis. No lytic or blastic lesion is seen. Sinuses and mastoids: The visualized paranasal sinuses are clear. The mastoid air cells are well pneu matized. IMPRESSION: 1. Unremarkable CT angiogram of the neck noting a diminutive right vertebral artery. 2. There is severe focal stenosis of the proximal right middle cerebral artery seen at the skull base . 3. Additional findings as above. ACT 112: Negative or not required by law. Electronically signed by: Bertin Marin M.D. 08/11/2021 7:17 AM
--- NOTE | 2021-08-11 08:11 | XRay Report ---
SINGLE VIEW CHEST CLINICAL HISTORY: Strokelike symptoms. FINDINGS: An AP, portable, upright chest radiograph is compared to study dated 04/23/2021 and correlat ed with chest CT dated 04/28/2012. The heart is enlarged noting atherosclerotic calcification of the t horacic aorta. There is prominence of the pulmonary vasculature. Biapical scarring is observed. Chron ic interstitial thickening is similar to previous. Scarring/atelectasis is noted at the lung bases. A left upper lobe nodular opacity is similar to previous and likely represents a pleural parenchymal l esions seen on prior chest CTs. No airspace consolidation or large pleural effusion is identified. No pneumothorax is seen. The skeletal structures are osteopenic. The bony thorax is grossly intact. IMPRESSION: 1. Cardiomegaly with prominence of the pulmonary vasculature. Correlate clinically for evidence of fl uid overload/mild congestive failure. 2. No airspace consolidation or large pleural effusion is identified. ACT 112: Negative or not required by law. Electronically signed by: Bertin Marin M.D. 08/11/2021 8:09 AM
--- NOTE | 2021-08-11 08:36 | CT Scan Report ---
CT angio head w con, CT head/brain wo con CLINICAL HISTORY: Stroke Like Symptoms TECHNIQUE: Contiguous axial CT images of the head were acquired from the base of the skull to the adam alfonzo without intravenous contrast administration. CT angiography of the head was performed following intravenous administration of iodinated contrast. Coronal and sagittal MIPS were obtained from the ax ial data set and were submitted for review. Automated dose lowering techniques and/or adjustment acc ording to patient size were utilized for this examination. All measurements were calculated based on NASCET criteria. CT DOSE: 1341.52 mGy.cm Comparison: None available at the time of this dictation. FINDINGS: CT head: Areas of decreased attenuation are present in the periventricular and subcortical white mike er bilaterally consistent with small vessel ischemic disease. Generalized cerebral atrophy with comme nsurate enlargement of the ventricles, sulci, and cisterns is also present. There is questionable ind istinctness of the smith-white differentiation in the anterior watershed on the right. CTA Head: The anterior and posterior cerebral circulations are patent. There is high-grade stenosis in the mid M1 segment on the right. Distal MCA branches are patent with a few foci of narrowing seen in the proximal M2 segment. Atherosclerotic disease is noted. IMPRESSION: 1. High-grade stenosis in the mid M1 segment on the right with moderate foci of narrowing in the pro ximal M2 segment. Distal branches are opacified. 2. Questionable indistinct is the smith-white differentiation in the anterior watershed region in the right. Correlation with MRI brain which has already been ordered is recommended. Assessment of stenosis of the internal carotid arteries is based on NASCET criteria. ACT 112: Negative or not required by law. Electronically signed by: Thony Webster M.D. 08/11/2021 8:34 AM
--- NOTE | 2021-08-11 10:05 | Magnetic Resonance Report ---
MR brain wo con HISTORY: 80 years-old Male tia acute strokelike symptoms COMPARISON: CT head, CTA head and neck 08/11/2021, brain MRI 09/11/2017 TECHNIQUE: Multiplanar multisequence MRI of the brain was obtained without the use of IV contrast. FINDINGS: Degenerative changes of the imaged cervical spine. Unremarkable midline structures. No acute intracra nial hemorrhage, midline shift, abnormal extra-axial collection, hydrocephalus or intracranial mass. Involutional changes with moderate T2/FLAIR hyperintense foci throughout the white matter, progressed from the prior study. The cerebral venous sinuses and major arterial flow voids appear patent. The skull, orbits and soft t issues are unremarkable. Mastoid air cells and paranasal sinuses are generally clear. IMPRESSION: 1. No acute intracranial abnormality. No acute or subacute infarct. 2. Involutional changes with chronic microvascular ischemic disease. ACT 112: Negative or not required by law. The above report was generated using voice recognition software. It may contain grammatical, syntax o r spelling errors. Electronically signed by: Justin Cornejo M.D. 08/11/2021 10:03 AM
--- NOTE | 2021-08-11 12:08 | Neurology Consultation ---
Date of Consultation August 11, 2021 Assessment & Plan (1) TIA (transient ischemic attack): 1. no acute finding on MRI 2. CTA high stenosis M1 sig narrowing on proximal M2- is not contributory to the event 3. keep Coumadin 2.5-3.0 INR 4. continue aspirin 81 mg daily 5. digoxin for rate control level good 6. TTE if not already done 7. EEG- done but not read 8. EEG- 72 hour as an outpatient may be helpful to assess event 9. EtoH use may be contributory Supervising Physician Co-Signing Physician Notes I have seen and discussed above patient with Dr Rehana Valenzuela, neurology. Pt seen and examined, LIZ Trinidad. Pt with four episodes of exp aphasia lasting 30 min to 2 hours. Episode last pm associated with some decreased dexterity r hand. MRI brain no acute abnl. Pt has severe stenosis of R mca which is not etiologic in terms of these spells. INR 2.1 on asa. Pt appears to at baseline have some difficulty with word finding, although naming, reps and 3 step commands nml . Memory 2/3 No headache or hx of migraine to suspect migrainous. Given stereotyped nature of events consider Pcom sz or simple partial sz. Await eeg, if neg, ambulatory eeg as out pt. if routine EEG nml then consider optimizing INR target to 2.5 -3 and continue asa. Opitmize vascular risk factors. Dr. Valenzuela History of Present Illness Reason for Consultation: TIA Requesting Physician: Terry Manriquez MD Attending Physician: Terry Manriquez MD History of Present Illness Landon is an 80 year old male with PMH Afib - Coumadin and history of TIA He presents [facility] ED 08/11/21 with difficulty speaking. Earlier in the evening they were having a get together and he was acting normally. noticed that when he came up to bed he was having difficulty getting his words out. No reported falls. INR 06/29/21 - 2.7. digoxin level 0.8 EtOH level 18 they had a 10 of August constitution party and he drank gin and tonic and some champagne type drink along with some beer which is more than his usual 2 beers per night. denies CP, SOB, abdominal pain, one sided weakness,numbness tingling Allergies Allergy/AdvReac Type Severity Reaction Status Date / Time alfuzosin AdvReac Intermediate DIZZINESS/W Verified 08/11/21 00:29 EAKNESS Home Medications Medication Instructions Recorded Confirmed Type acetaminophen 500 mg tablet 1,000 mg PO Q6H PRN 09/11/18 08/11/21 History aspirin 81 mg tablet,delayed 81 mg PO QPM 09/11/18 08/11/21 History release digoxin 250 mcg (0.25 mg) tablet 250 mcg PO HS 09/11/18 08/11/21 History rosuvastatin 20 mg tablet 20 mg PO HS 09/11/18 08/11/21 History warfarin 5 mg tablet 5 mg PO 4XWK 09/11/18 08/11/21 History warfarin 5 mg tablet 10 mg PO 3XWK 09/11/18 08/11/21 History finasteride 5 mg tablet 5 mg PO HS 08/03/19 08/11/21 History silodosin 8 mg capsule 8 mg PO QPM 04/23/21 08/11/21 History amoxicillin 500 mg capsule 2,000 mg PO DIRECTED PRN 08/11/21 08/11/21 History levothyroxine 112 mcg tablet 112 mcg PO DAILYBB 08/11/21 08/11/21 History Patient History Medical History (Updated 08/11/21 @ 07:50 by Americo Thurston MD) Atrial fibrillation Cerebrovascular disease "history TIA's" Dyslipidemia Hiatal hernia Hypothyroidism Stroke-like symptom Surgical History H/O vasectomy History of bilateral knee replacement "Dr. Mayer 2011 and 2013" History of inguinal hernia repair Social History Smoking Status: Former smoker Second Hand Exposure: No; Hx Alcohol Use: Yes Alcohol type: beer Hx Substance Use: No Preferred Language: Kiswahili Communication Ability: Effective Hand Tube Bender Required: No Beliefs That Will Affect Care: None Current Living Situation: Other Current Living Situation Comment: lives with a woman, not Other Information That Helps Us Care for You: No Feels Safe at Home: Yes Safety Concerns: Feels Safe At This Time Assistive Devices: Glasses and Hearing Aid - Bilateral Review of Systems Review of Systems: All systems reviewed & are unremarkable except as noted in HPI & below Physical Exam Physical Exam: Physical Exam: Constitutional:, appearance nourished, healthy and normal Ears, Nose, Mouth and Throat: mucous membranes moist, no injection and skin normal, eyes normal Cardiovascular: normal S-1 and S-2 and regular rate and rhythm Respiratory: clear to auscultation (CTA) and no rales, ronchi or wheeze Musculoskeletal: no peripheral edema and good distal pulses Skin: no stigmata of neurocutaneous disease noted and normal and intact Eyes: extraocular muscles intact (EOMI) and pupils equal, round and reactive to light (PERRL) NEUROLOGIC EXAMINATION: Mental status: Alert and interactive Oriented to full date and location Oriented to person Speech hesitant broken speech (chronic) Cranial Nerves smile eye brow raise symmetric Reflexes: Deep tendon reflexes were symmetrical and graded 2/5. down going toes Coordination: finger to nose intact Gait/Stance: Posture normal. Gait normal: with steady with steps, base, turning, and tandem gait. Motor: Negative for pronator drift of out stretched arms with eyes closed. 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 hip flex patellar flex ext 5/5 bilaterally Results & Data ([facility]) Vital Signs (Past 12 Hours) Vital Signs Temp Pulse Pulse Resp BP BP Pulse Ox 08/11/21 11:00 37.0 C 62 18 185/94 H 97 08/11/21 07:42 36.7 C 66 18 180/97 H 94 08/11/21 05:39 57 L 189/106 H 08/11/21 05:28 36.4 C L 63 18 191/110 H 97 08/11/21 04:48 08/11/21 04:45 59 L 185/95 H 08/11/21 04:30 70 08/11/21 04:02 64 18 164/98 H 96 08/11/21 02:26 65 16 180/109 H 96 08/11/21 02:07 66 19 185/107 H 95 08/11/21 01:46 67 16 173/112 H 97 08/11/21 00:49 75 20 167/106 H 95 08/11/21 00:37 81 19 195/134 H 97 Pulse Ox 08/11/21 11:00 08/11/21 07:42 08/11/21 05:39 08/11/21 05:28 08/11/21 04:48 97 08/11/21 04:45 08/11/21 04:30 08/11/21 04:02 08/11/21 02:26 08/11/21 02:07 08/11/21 01:46 08/11/21 00:49 08/11/21 00:37 Laboratory Results Abnormal lab results 08/11/21 08/11/21 08/11/21 Range/Units 00:05 00:05 00:05 WBC 4.78 L (4.8-10.8) K/uL RBC 4.34 L (4.7-6.1) M/uL Hgb 13.7 L (14.0-18.0) g/dL Hct 40.2 L (42-52) % PT 21.5 H (9.0-12.0) Seconds POC INR (0.9-1.1) INR 2.1 H (0.9-1.1) APTT 33.5 H (21.0-31.0) Seconds POC Chloride (101-112) mmol/L POC BUN (7-18) mg/dl POC Glucose (70-99) mg/dl Hemoglobin A1c (4.5-5.6) % Troponin I High Sens 21.9 H (0-20) pg/ml Ethyl Alcohol mg/dL (<10.0) mg/dl 08/11/21 08/11/21 08/11/21 Range/Units 00:05 00:07 00:07 WBC (4.8-10.8) K/uL RBC (4.7-6.1) M/uL Hgb (14.0-18.0) g/dL Hct (42-52) % PT (9.0-12.0) Seconds POC INR (0.9-1.1) INR (0.9-1.1) APTT (21.0-31.0) Seconds POC Chloride (101-112) mmol/L POC BUN (7-18) mg/dl POC Glucose 118 H (70-99) mg/dl Hemoglobin A1c 5.8 H (4.5-5.6) % Troponin I High Sens (0-20) pg/ml Ethyl Alcohol mg/dL 18.1 H (<10.0) mg/dl 08/11/21 08/11/21 08/11/21 Range/Units 00:12 00:15 05:29 WBC 4.47 L (4.8-10.8) K/uL RBC 4.09 L (4.7-6.1) M/uL Hgb 13.4 L (14.0-18.0) g/dL Hct 38.4 L (42-52) % PT (9.0-12.0) Seconds POC INR 2.3 H (0.9-1.1) INR (0.9-1.1) APTT (21.0-31.0) Seconds POC Chloride 100 L (101-112) mmol/L POC BUN 21 H (7-18) mg/dl POC Glucose (70-99) mg/dl Hemoglobin A1c (4.5-5.6) % Troponin I High Sens (0-20) pg/ml Ethyl Alcohol mg/dL (<10.0) mg/dl 08/11/21 08/11/21 Range/Units 05:29 05:29 WBC (4.8-10.8) K/uL RBC (4.7-6.1) M/uL Hgb (14.0-18.0) g/dL Hct (42-52) % PT 21.4 H (9.0-12.0) Seconds POC INR (0.9-1.1) INR 2.1 H (0.9-1.1) APTT (21.0-31.0) Seconds POC Chloride (101-112) mmol/L POC BUN (7-18) mg/dl POC Glucose (70-99) mg/dl Hemoglobin A1c (4.5-5.6) % Troponin I High Sens 22.3 H (0-20) pg/ml Ethyl Alcohol mg/dL (<10.0) mg/dl Diagnostic Findings CT [id number] stenosis in the mid M1 segment on the right with moderate foci of narrowing in the proximal M2 segment. Distal branches are opacified. Questionable indistinct is the smith-white differentiation in the anterior watershed region in the right. Correlation with MRI brain which has already been ordered is recommended. MRI brain- . No acute intracranial abnormality. No acute or subacute infarct. . Involutional changes with chronic microvascular ischemic disease.
--- NOTE | 2021-08-11 14:38 | Hospitalist Progress Note ---
Date of Service August 11, 2021 Assessment & Plan (1) Aphasia: Plan: Presented with a fascia for about 2 hours Did not have any other neurological symptoms associated with it Back to his baseline this morning MRI did not show any stroke CTA showed severe focal stenosis of the proximal right middle cerebral artery seen at the skull base Appreciate neurology input and recommendation We will continue aspirin and Coumadin EEG is pending (2) History of recurrent TIAs: Plan: History of recurrent TIAs and also history of stroke (3) Hypertension: Plan: Hypertension, elevated secondary to TIA Blood pressure noted to be very high at 185/94 Will not lower wrist so much (4) Atrial fibrillation: Plan: A. fib on Coumadin, rate controlled, INR therapeutic Rate is controlled INR is 2.1 (5) Hypothyroidism: Plan: Continue supplement (6) Dyslipidemia: Plan: Continue statin Chronic anemia, hemoglobin at baseline BPH symptoms at baseline Hyperglycemia likely prediabetes, hemoglobin A1c of 5.9 last 2018 Hemoglobin A1c is 5.8 DVT prophylaxis. Coumadin INR goal between 2 and 3 Full code Patient partner requesting updates from providers. Ms. Ilsa Valentin, contact #[phone]. Admission and Anticipated Discharge Date Admission Date: August 11, 2021 Subjective 08/11/2021 The patient was seen and examined in medical telemetry unit He was admitted with loss of speech for about 2 hours without any other neurological symptoms He has had TIA x4 before Speech seems to be back to his baseline this morning Review of Systems Review of Systems: All systems were reviewed and are unremarkable except as noted below Neurologic: Minimal dysarthria which seems to be at his baseline Physical Exam Physical Exam: Lying in bed comfortably Constitutional: + ill appearing and average body habitus Eyes: PERRL, conjunctivae normal, anicteric sclerae ENMT: external ear and nose normal, oropharynx normal Neck: trachea midline, no thyromegaly Respiratory: no respiratory distress Auscultation: lungs clear to auscultation bilaterally Cardiovascular: Rate/Rhythm: regular rate and regular rhythm; not tachycardic Heart Sounds: normal S1 and normal S2; no murmur Extremities: no edema Gastrointestinal (Abdomen): Inspection/Auscultation: normal bowel sounds; abdomen not distended Percussion/Palpation: abdomen soft; abdomen nontender Musculoskeletal: No acute arthritis involving any joint Neurologic: Alert, awake and oriented x3. Has baseline dysarthria. No focal sensory or no motor deficit appreciated Results & Data Results & Data ([facility]) Vital Signs (Past 12 Hours) Vital Signs Temp Pulse Pulse Resp BP BP Pulse Ox 08/11/21 11:00 37.0 C 62 18 185/94 H 97 08/11/21 07:42 36.7 C 66 18 180/97 H 94 08/11/21 05:39 57 L 189/106 H 08/11/21 05:28 36.4 C L 63 18 191/110 H 97 08/11/21 04:48 08/11/21 04:45 59 L 185/95 H 08/11/21 04:30 70 08/11/21 04:02 64 18 164/98 H 96 Pulse Ox 08/11/21 11:00 08/11/21 07:42 08/11/21 05:39 08/11/21 05:28 08/11/21 04:48 97 08/11/21 04:45 08/11/21 04:30 08/11/21 04:02 Laboratory Results Short CBC 08/11/21 08/11/21 Range/Units 00:05 05:29 WBC 4.78 L 4.47 L (4.8-10.8) K/uL Hgb 13.7 L 13.4 L (14.0-18.0) g/dL Hct 40.2 L 38.4 L (42-52) % Plt Count 192 181 (130-400) K/uL BMP 08/11/21 08/11/21 00:05 05:29 Sodium 138 137 Potassium 3.7 4.1 Chloride 102 103 Carbon Dioxide 28 28 BUN 23 20 Creatinine 1.24 1.02 Glucose 90 93 Calcium 9.3 9.2 Liver Function 08/11/21 Range/Units 00:05 Total Bilirubin 0.7 (0.2-1.0) mg/dl AST 27 (13-39) U/L ALT 16 (7-52) U/L Alkaline Phosphatase 57 (34-104) U/L Albumin 4.4 (3.4-5.0) gm/dl Medications Administered Current Inpatient Medications Acetaminophen (Acetaminophen 325 Mg Tab) 650 mg PO Q4H PRN PRN Reason: Pain or Fever Stop: 09/10/21 04:47 Aspirin (Aspirin 81 Mg Ectab) 81 mg PO QPM RIA Stop: 09/10/21 20:59 Digoxin (Digoxin 0.25 Mg Tab) 0.25 mg PO HS RIA Stop: 09/10/21 20:59 Finasteride (Finasteride 5 Mg Tab) 5 mg PO HS [facility] Stop: 09/10/21 20:59 Levothyroxine Sodium (Levothyroxine Sodium 112 Mcg Tablet) 112 mcg PO DAILYBB RIA Stop: 09/10/21 06:29 Last Admin: 08/11/21 06:00 Dose: 112 mcg Documented by: Miscellaneous (Silodosin: Order Awaiting Action) 1 ea N/A QS RIA Stop: 09/10/21 07:59 Last Admin: 08/11/21 14:40 Dose: Not Given Documented by: Miscellaneous Information (Pharmacist Discharge Med Rec Consult) 1 ea N/A UD PRN PRN Reason: Consult Stop: 09/10/21 04:47 Rosuvastatin Calcium (Rosuvastatin Calcium 20 Mg Tab) 20 mg PO [facility] Stop: 09/10/21 20:59 (1) Hypertension Hypertension type: unspecified Qualified Code(s): I10 - Essential (primary) hypertension
[2021-08-11] MEDS ORDERED: FINASTERIDE 5 MG TAB PO SCH (21:00)
[2021-08-11] MEDS ORDERED: DIGOXIN 0.25 MG TAB PO SCH (21:00)
[2021-08-11] MEDS ORDERED: ASPIRIN 81 MG ECTAB PO SCH (21:00)
[2021-08-11] MEDS ORDERED: ROSUVASTATIN CALCIUM 20 MG TAB PO SCH (21:00)
[2021-08-12] MEDS: LEVOTHYROXINE SODIUM 112 MCG TABLET PO SCH (05:53)
--- NOTE | 2021-08-12 06:18 | Electrocardiogram Report ---
Test Reason : Blood Pressure : / mmHG Vent. Rate : 084 BPM Atrial Rate : 100 BPM P-R Int : 000 ms QRS Dur : 104 ms QT Int : 382 ms P-R-T Axes : 000 058 063 degrees QTc Int : 451 ms Atrial fibrillation with premature ventricular or aberrantly conducted complexes Nonspecific ST abnormality Abnormal ECG When compared with ECG of 23-APR-2021 20:58, No significant change was found Confirmed by Pascual Oliveira ([id number]) on 08/12/2021 6:18:10 AM Referred By: REFERRED SELF Confirmed By:Pascual Oliveira
--- NOTE | 2021-08-12 06:27 | Electroencephalogram ---
EEG Procedure Note Date of Service August 11, 2021 Start / End Times Start Time: 11:16 End Time: 11:[address] Americo Ware History An 80 year old male with transient aphasia. EEG performed for evaluation of epileptiform activity. Home Medication List Medication Instructions Recorded Confirmed Type acetaminophen 500 mg tablet 1,000 mg PO Q6H PRN 09/11/18 08/11/21 History aspirin 81 mg tablet,delayed 81 mg PO QPM 09/11/18 08/11/21 History release digoxin 250 mcg (0.25 mg) tablet 250 mcg PO HS 09/11/18 08/11/21 History rosuvastatin 20 mg tablet 20 mg PO HS 09/11/18 08/11/21 History warfarin 5 mg tablet 5 mg PO 4XWK 09/11/18 08/11/21 History warfarin 5 mg tablet 10 mg PO 3XWK 09/11/18 08/11/21 History finasteride 5 mg tablet 5 mg PO HS 08/03/19 08/11/21 History silodosin 8 mg capsule 8 mg PO QPM 04/23/21 08/11/21 History amoxicillin 500 mg capsule 2,000 mg PO DIRECTED PRN 08/11/21 08/11/21 History levothyroxine 112 mcg tablet 112 mcg PO DAILYBB 08/11/21 08/11/21 History Inpatient Medication List Aspirin (Aspirin 81 Mg Ectab) 81 mg PO QPM [facility] Stop: 09/10/21 20:59 Last Admin: 08/11/21 20:14 Dose: 81 mg Documented by: [id number] Digoxin (Digoxin 0.25 Mg Tab) 0.25 mg PO [facility] Stop: 09/10/21 20:59 Last Admin: 08/11/21 20:14 Dose: 0.25 mg Documented by: [id number] Finasteride (Finasteride 5 Mg Tab) 5 mg PO [facility] Stop: 09/10/21 20:59 Last Admin: 08/11/21 21:00 Dose: 5 mg Documented by: [id number] Levothyroxine Sodium (Levothyroxine Sodium 112 Mcg Tablet) 112 mcg PO DAILYBB [facility] Stop: 09/10/21 06:29 Last Admin: 08/12/21 05:53 Dose: 112 mcg Documented by: [id number] Admin: 08/11/21 06:00 Dose: 112 mcg Documented by: [id number] Miscellaneous (Silodosin: Order Awaiting Action) 1 ea N/A QS [facility] Stop: 09/10/21 07:59 Last Admin: 08/11/21 20:13 Dose: Not Given Documented by: [id number] Admin: 08/11/21 14:40 Dose: Not Given Documented by: [id number] Admin: 08/11/21 08:19 Dose: Not Given Documented by: [id number] Rosuvastatin Calcium (Rosuvastatin Calcium 20 Mg Tab) 20 mg PO HS RIA Stop: 09/10/21 20:59 Last Admin: 08/11/21 20:14 Dose: 20 mg Documented by: [id number] Discontinued Medications Hydralazine HCl (Hydralazine Hcl 20 Mg/Ml Vial) 2.5 mg IV NOW ONE Stop: 08/11/21 06:31 Last Admin: 08/11/21 06:37 Dose: 2.5 mg Documented by: [id number] Magnesium Sulfate/Dextrose (Magnesium Sulfate / D5w) 1 gm in 100 mls @ 100 mls/hr IV Q1H [facility] Stop: 08/11/21 03:12 Last Infusion: 08/11/21 03:23 Dose: 0 mls/hr Documented by: [id number] Admin: 08/11/21 02:26 Dose: 100 mls/hr Documented by: [id number] Infusion: 08/11/21 02:26 Dose: 0 mls/hr Documented by: [id number] Admin: 08/11/21 01:29 Dose: 100 mls/hr Documented by: [id number] Sodium Chloride (Nss) 500 mls @ 125 mls/hr IV .Q4H [facility] Stop: 09/10/21 01:14 Last Infusion: 08/11/21 06:19 Dose: 0 mls/hr Documented by: [id number] Admin: 08/11/21 02:26 Dose: 125 mls/hr Documented by: [id number] Sodium Chloride (Nss 1000ml) 500 mls @ 999 mls/hr IV .Q31M ONE Stop: 08/11/21 01:43 Last Infusion: 08/11/21 02:07 Dose: 0 mls/hr Documented by: [id number] Admin: 08/11/21 01:29 Dose: 999 mls/hr Documented by: [id number] Lactated Ringer's (Lr) 1,000 mls @ 60 mls/hr IV .[id number] ONE Stop: 08/11/21 21:27 Last Infusion: 08/11/21 09:58 Dose: 0 mls/hr Documented by: [id number] Admin: 08/11/21 05:17 Dose: 60 mls/hr Documented by: [id number] Ioversol (Optiray 320 125ml) 125 ml IV ONCE ONE Stop: 08/11/21 00:53 Last Admin: 08/11/21 00:53 Dose: 118 ml Documented by: [id number] Description This is a 21 electrode EEG with a single channel dedicated to limited EKG. The electrodes were placed in accordance with the International 10-20 system. Interpretation REPORT: At the onset of the EEG the patient is awake. The background is symmetric. The posterior dominant rhtyhm is 8-9 Hz. Anteriorly there is low amp litude faster frequencies. During drowsiness. there is increase theta activity with some intermixed delta activity. No Stage II sleep transinet are seen. Photic does not induce any abnormalities. Clinical Correlation This is an abnormal study due to mild generalized background slowing suggestive of a mild non specific encephalopathy. There is no evidence of focal slowing or epileptiform discharges.
[2021-08-12 08:58] LABS: INR 1.9 (0.9-1.1); Prothrombin Time 19.1 Seconds (9.0-12.0)
[2021-08-12] MEDS ORDERED: ENOXAPARIN 80 MG/0.8 ML SYR SQ ONE (12:00)
--- NOTE | 2021-08-12 14:41 | Hospitalist Progress Note ---
Date of Service August 12, 2021 Assessment & Plan (1) Aphasia: Plan: Presented with a fascia for about 2 hours Did not have any other neurological symptoms associated with it Back to his baseline this morning MRI did not show any stroke CTA showed severe focal stenosis of the proximal right middle cerebral artery seen at the skull base Appreciate neurology input and recommendation We will continue aspirin and Coumadin EEG is pending-no significant findings Will have follow-up with the neurologist as an outpatient (2) History of recurrent TIAs: Plan: History of recurrent TIAs and also history of stroke Has had PT evaluation and recommended home (3) Hypertension: Plan: Hypertension, elevated secondary to TIA Blood pressure noted to be very high at 185/94 Will allow permissive hypertension (4) Atrial fibrillation: Plan: A. fib on Coumadin, rate controlled, INR therapeutic Rate is controlled INR is 1.9 today, will give 80 mg of subcu Lovenox and will advised to take 10 mg of Coumadin x2 days starting today and have her follow-up with the Coumadin c linic sooner INR should be maintained between 2.5-3 (5) Hypothyroidism: Plan: Continue supplement (6) Dyslipidemia: Plan: Continue statin Chronic anemia, hemoglobin at baseline BPH symptoms at baseline Hyperglycemia likely prediabetes, hemoglobin A1c of 5.9 last 2018 Hemoglobin A1c is 5.8 DVT prophylaxis. Coumadin INR goal between 2 and 3 Full code Patient partner requesting updates from providers. Ms. Ilsa Valentin, contact #[phone]. Admission and Anticipated Discharge Date Admission Date: August 11, 2021 Subjective 08/11/2021 The patient was seen and examined in medical telemetry unit He was admitted with loss of speech for about 2 hours without any other neurological symptoms He has had TIA x4 before Speech seems to be back to his baseline this morning 08/12/2021 The patient was seen and examined in telemetry unit He has been stable and is back to his baseline No new symptoms and no neurological symptoms except ongoing dysarthria Review of Systems Review of Systems: All systems were reviewed and are unremarkable except as noted below Neurologic: Minimal dysarthria which seems to be at his baseline Physical Exam Physical Exam: Lying in bed comfortably Constitutional: + ill appearing and average body habitus Eyes: PERRL, conjunctivae normal, anicteric sclerae ENMT: external ear and nose normal, oropharynx normal Neck: trachea midline, no thyromegaly Respiratory: no respiratory distress Auscultation: lungs clear to auscultation bilaterally Cardiovascular: Rate/Rhythm: regular rate and regular rhythm; not tachycardic Heart Sounds: normal S1 and normal S2; no murmur Extremities: no edema Gastrointestinal (Abdomen): Inspection/Auscultation: normal bowel sounds; abdomen not distended Percussion/Palpation: abdomen soft; abdomen nontender Musculoskeletal: No acute arthritis involving any joint Neurologic: Alert, awake and oriented x3. Has minimal dysarthria without any other neurological deficit Lymphatic: no cervical or axillary lymphadenopathy Results & Data Results & Data ([facility]) Vital Signs (Past 12 Hours) Vital Signs Temp Pulse Pulse Resp BP Pulse Ox 08/12/21 11:16 36.5 C 60 20 161/83 H 100 08/12/21 09:12 63 08/12/21 07:42 36.4 C 55 L 20 151/82 H 94 08/12/21 04:00 36.6 C 74 20 132/78 96 Medications Administered Current Inpatient Medications Acetaminophen (Acetaminophen 325 Mg Tab) 650 mg PO Q4H PRN PRN Reason: Pain or Fever Stop: 09/10/21 04:47 Aspirin (Aspirin 81 Mg Ectab) 81 mg PO QPM [facility] Stop: 09/10/21 20:59 Last Admin: 08/11/21 20:14 Dose: 81 mg Documented by: Digoxin (Digoxin 0.25 Mg Tab) 0.25 mg PO [facility] Stop: 09/10/21 20:59 Last Admin: 08/11/21 20:14 Dose: 0.25 mg Documented by: Finasteride (Finasteride 5 Mg Tab) 5 mg PO [facility] Stop: 09/10/21 20:59 Last Admin: 08/11/21 21:00 Dose: 5 mg Documented by: Levothyroxine Sodium (Levothyroxine Sodium 112 Mcg Tablet) 112 mcg PO DAILY RIA Stop: 09/10/21 06:29 Last Admin: 08/12/21 05:53 Dose: 112 mcg Documented by: Miscellaneous (Silodosin: Order Awaiting Action) 1 ea N/A QS RIA Stop: 09/10/21 07:59 Last Admin: 08/12/21 14:37 Dose: Not Given Documented by: Rosuvastatin Calcium (Rosuvastatin Calcium 20 Mg Tab) 20 mg PO [facility] Stop: 09/10/21 20:59 Last Admin: 08/11/21 20:14 Dose: 20 mg Documented by: (1) Hypertension Hypertension type: unspecified Qualified Code(s): I10 - Essential (primary) hypertension
[2021-08-12] MEDS ORDERED: WARFARIN SOD 10 MG TAB PO ONE (15:15)
--- NOTE | 2021-08-12 18:40 | Discharge Summary ---
Date of Service August 12, 2021 Admission HPI Per Admitting Provider History obtained from patient, family, and records. Medical history significant for CVA, A. fib on Coumadin, hypertension, hyperlipidemia, hypothyroidism, chronic anemia (baseline hemoglobin of 13), BPH, daily alcohol intake. Last confinement September 2018 for TIA symptoms presenting as expressive aphasia. Patient was getting ready to go to bed last night when he noted expressive aphasia symptoms similar to 2019 incident. Patient could not get words out as per partner. No witnessed seizures, tongue biting, incontinence. Patient compliant with medications. Patient denies chest pain, SOB, headache symptoms. Stroke alert called upon arrival at the ER. Patient symptoms eventually improved. Patient almost back to baseline as per partner.. 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 Admission Exam Per Admitting Provider Physical Exam: GENERAL: Comfortable, pleasant, speech somewhat slow, no respiratory distress SKIN: Normal color, warm HEENT: [place] palpebral conjunctivae, no ptosis, dry buccal mucosa NECK : Supple, no tenderness CHEST : CTA, no tenderness HEART : Irregular, no obvious murmurs ABDOMEN: Some distention, nontender EXTREMITIES : No LE swelling/tenderness, no other conspicuous deformities noted NEUROLOGIC : Coherent, no facial asymmetry, speech somewhat slow, gait and stance not assessed Principal Diagnosis Aphasia-improved to baseline, history of recurrent TIA, hypertension Discharge Exam Lying in bed comfortably Constitutional + ill appearing and average body habitus Eyes PERRL, conjunctivae normal, anicteric sclerae ENMT external ear and nose normal, oropharynx normal Neck trachea midline, no thyromegaly Respiratory no respiratory distress Auscultation: lungs clear to auscultation bilaterally Cardiovascular Rate/Rhythm: regular rate and regular rhythm; not tachycardic Heart Sounds: normal S1 and normal S2; no murmur Extremities: no edema Gastrointestinal (Abdomen) Inspection/Auscultation: normal bowel sounds; abdomen not distended Percussion/Palpation: abdomen soft; abdomen nontender Lymphatic no cervical or axillary lymphadenopathy Discharge Data Allergies Allergy/AdvReac Type Severity Reaction Status Date / Time alfuzosin AdvReac Intermediate DIZZINESS/W Verified 08/11/21 00:29 EAKNESS Consultations 08/11/21 01:14 ED Decision to Admit Stat 08/11/21 04:48 Consult Neurology Routine Ordered Studies 08/11/21 00:01 CT angio head w con Urgent CT angio neck with con Urgent CT head/brain wo con Urgent 08/11/21 04:48 MR brain wo con Routine Hospital Course (1) Aphasia: Presented with a fascia for about 2 hours Did not have any other neurological symptoms associated with it Back to his baseline this morning MRI did not show any stroke 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 fib on Coumadin, rate controlled, INR therapeutic Rate is controlled INR is 1.9 today, will give 80 mg of subcu Lovenox and will advised to take 10 mg of Coumadin x2 days starting today and have her follow-up with the Coumadin clinic sooner INR should be maintained between 2.5-3 (5) Hypothyroidism: Continue supplement (6) Dyslipidemia: Continue statin Chronic anemia, hemoglobin at baseline BPH symptoms at baseline Hyperglycemia likely prediabetes, hemoglobin A1c of 5.9 last 2018 Hemoglobin A1c is 5.8 DVT prophylaxis. Coumadin INR goal between 2 and 3 Full code Patient partner requesting updates from providers. Ms. Ilsa Valentin, contact #[phone]. Total Time Total Time Spent Total Time Spent (In Minutes): 35 minutes Discharge Plan Discharge Items Patient Disposition: Home - Self-Care Reason For Visit: TIA Discharge Diagnosis: Aphasia-improved to baseline, history of recurrent TIA, hypertension Condition on Discharge: Good Activity: Resume your previous activity Non-emergency contact: Primary Care Provider Call non-emergency contact if: you have any medication questions and your symptoms worsen Follow-up/Referrals: Uday Roche DO [Primary Care Provider] - (Date & Time 08/13/2021 10:00 AM Provider Uday Roche DO [facility] [address], [place] *Please arrive at 9:45 for an INR blood draw*) Diet: Heart Healthy Addtl Attending Provider Instructions: Please take precautions to avoid falls No change in new medications . Start Coumadin from tomorrow Your [facility] be [facility] 2[facility]5-3 [facility] a [facility] Please keep appointments with your healthcare providers Pending Studies at Discharge: No Stand-Alone Forms: My [facility] [place], Smoking Cessation Medications and DC Order Prescriptions: Continued aspirin 81 mg Tablet,Delayed Release (Dr/Ec) 81 mg PO QPM RF: 0 acetaminophen 500 mg Tablet 1,000 mg PO Q6H PRN (Reason: Pain) RF: 0 warfarin 5 mg Tablet 10 mg PO 3XWK RF: 0 warfarin 5 mg Tablet 5 mg PO 4XWK RF: 0 digoxin 250 mcg Tablet 250 mcg PO HS RF: 0 rosuvastatin 20 mg tablet 20 mg PO HS RF: 0 finasteride 5 mg Tablet 5 mg PO HS RF: 0 silodosin 8 mg Capsule 8 mg PO QPM RF: 0 amoxicillin 500 mg capsule 2,000 mg PO DIRECTED PRN (Reason: 1 HOUR PRIOR TO DENTAL APPT.) RF: 0 levothyroxine 112 mcg tablet 112 mcg PO DAILYBB RF: 0 Discharge Orders: Discharge Order (Routine); Ordered 08/12/21 Ordered By: Terry Chávez/Other Patient Handouts: What to Know When TakingWarfarin Admission Data Admit Date/Time: 08/11/21 03:15 Attending Provider: Terry Manriquez Admit Provider: Americo Thurston Primary Care Provider: Uday Roche Other Providers: Americo Thurston ; Rehana Weinberg ; Chaitanya Huntley ; Rehana Valenzuela ; Bonilla Echols ; Nara Gagnon Other Interventions: Discharge Summary Assessment (RN) Last Done: 08/12/21 15:20
== END 2021-08-12 16:00 | disposition home or self-care (01) | DRG 69 ==
LOC: ED 23:53 → 2N 08-11 03:15

== ENCOUNTER 2022-10-15 08:00 | Observation (INO) ==
--- NOTE | 2022-10-15 08:07 | Emergency Department Note ---
Impression & Plan AMS (altered mental status), Atrial fibrillation, Anemia, Acute dehydration ED Provider Note NAME: NAUN MONTES AGE: 81 SEX: M : 1940 ARRIVES VIA: Ambulance INFORMANT: Patient, ED PROVIDER(S): Arvind Mojica MD CHIEF COMPLAINT: Change in behavior MEDICAL DECISION MAKING: Patient presents due to concern for change in behavior. The patient is slow to respond but does answer all questions appropriately moves all 4 extremities. IV was established and blood work is obtained along with CT of the head and chest x-ray. Patient did receive IV fluids.Blood work shows a normal white count mild anemia hemoglobin 11 with normal platelet count kidney function is unremarkable with normal electrolytes. BSG 147 but nonfasting and no evidence of DKA. TSH is normal. Patient's INR was not therapeutic but the patient states that he is taking Eliquis. Salicylate Tylenol alcohol negative. Urinalysis does not show evidence of obvious infection. THC positive on urine drug screen which is consistent with the patient story. Mild ketones noted but did receive IV fluids. COVID flu and RSV negative. Patient has not yet returned to baseline. Given this concern I did speak with the on-call hospitalist service and the p dang was admitted to the medicine service. MRI was ordered and pending at the time of admission Prior /Outside records reviewed: I did review an EEG from August 12, 2021. This was read by Dr. Echols. This is reported as an abnormal study due to mild generalized background slowing suggestive of mild nonspecific encephalopathy. No evidence of focal slowing or epileptiform discharges Differential diagnosis: Infection, dehydration, metabolic abnormality, hypo/hyperglycemia, electrolyte imbalance, anemia, UTI, pneumonia, thyroid dysfunction among others were considered. Diagnostics, as interpreted by me: ECG: A-fib rate of 64, normal axis no ST elevations. Cardiac monitoring: An order was placed for continuous cardiac monitoring. The monitor shows a rate of 65 with irregularly irregular rhythm. Patient was placed on pulse oximetry Medical decision rules: None Imaging studies: See below I informally reviewed the patient's CT noncontrast head which does not show obvious ICH. HPI:Patient presents due to concern for change in mentation the patient reportedly was found down slumped against the bed. EMS reported a BSG in the 120s with normal vital signs. The patient does feel somewhat weak and fatigue. The patient does admit to drinking 2 beers last evening and did use THC sublingually. Patient does take Coumadin and has a known history of A-fib. Patient denies any head or neck or abdominal pain. The patient reportedly did have an episode of emesis prior to arrival and did receive IV Zofran. PAST MEDICAL HISTORY: See Below PAST SURGICAL HISTORY: See Below SOCIAL HISTORY: See Below HOME MEDICATIONS: See Below ALLERGIES: See Below VITALS: See Below PHYSICAL EXAMINATION: GENERAL: Fatigued in appearance, opens eyes to voice EYE EXAM: Normal conjunctiva. PERRL, no anisocoria and EOM's grossly intact w/o pain. OROPHARYNX: Moist mucus membranes, grossly normal dentition. NECK: Supple, no nuchal rigidity, no adenopathy, non-tender. No signs of meningismus. FROM of the neck with good chin to chest and neck extension. No stridor. LUNGS: Clear to auscultation. Normal chest wall mechanics. HEART: Irregularly, no MRG. ABDOMEN: Abdomen soft, non-tender, no masses, no rebound or guarding. BACK: No CVA TTP. SKIN: No rashes and no bruising. UPPER EXTREMITIES: Upper extremities are grossly normal. LOWER EXTREMITIES: Grossly normal, no edema. NEURO EXAM: GCS of 14, opens eyes to voice, follows command, cranial nerves II- XII grossly intact, normal speech, moves all 4 extremities. Past Med/Surg History Medical History Atrial fibrillation BPH (benign prostatic hyperplasia) Cerebrovascular disease "history TIA's" CKD (chronic kidney disease), stage II Dyslipidemia Hiatal hernia Hypertension Hypothyroidism Stroke-like symptom Surgical History H/O vasectomy History of bilateral knee replacement "Dr. Mayer 2011 and 2013" History of inguinal hernia repair Family History Other Hypertension Stroke Social History Smoking Status: Unknown if ever smoked Second Hand Exposure: No; Do You Dip or Chew Tobacco: No; Hx Alcohol Use: No (unable to assess) Hx Substance Use: Yes (Medical card) Preferred Language: French Communication Ability: Impaired Communication Ability Comment: cognition Family Life Counselor Required: No Beliefs That Will Affect Care: None Current Living Situation: Spouse Current Living Situation Comment: lives with a woman, not Feels Safe at Home: Yes Assistive Devices: None Allergies Allergies Allergy/AdvReac Type Severity Reaction Status Date / Time alfuzosin AdvReac Intermediate DIZZINESS/W Verified 10/15/22 10:24 EAKNESS Home Meds Home Medications Medication Instructions Recorded Confirmed acetaminophen 500 mg tablet 1,000 mg PO Q6H PRN Pain 09/11/18 10/15/22 digoxin 250 mcg (0.25 mg) tablet 250 mcg PO HS 09/11/18 10/15/22 rosuvastatin 20 mg tablet 20 mg PO HS 09/11/18 10/15/22 finasteride 5 mg tablet 5 mg PO HS 08/03/19 10/15/22 amoxicillin 500 mg capsule 2,000 mg PO DIRECTED PRN 1 HOUR 08/11/21 10/15/22 PRIOR TO DENTAL APPT. levothyroxine 112 mcg tablet 112 mcg PO DAILYBB 08/11/21 10/15/22 apixaban 5 mg tablet (Eliquis) 5 mg PO BID 10/15/22 10/15/22 losartan 100 mg tablet 100 mg PO QAM 10/15/22 10/15/22 Previous Rx's Medication Instructions Recorded clopidogrel 75 mg tablet 75 mg PO QAM #30 tabs 10/16/22 cyanocobalamin (vitamin B-12) 500 500 mcg PO DAILY #30 tabs 10/16/22 mcg tablet Results & Data (ED) Vital Signs Vital Signs - 24 hr 10/15/22 08:16 10/15/22 08:00 10/15/22 08:07 Temperature 36.6 C Temperature Source Oral Pulse Rate 59 L 53 L 59 L Pulse Rate from SpO2 Sensor Pulse Rhythm Irregular Respiratory Rate 21 21 Respiratory Effort / Characteristics Non-Labored Respiratory Depth Normal Respiratory Pattern Regular Blood Pressure 116/62 Blood Pressure Mean 80 Pulse Oximetry 96 96 Oxygen Delivery Method Room Air Room Air Sepsis Recent Fever Within 48 Hours No Sepsis New/Unexplained Change in Mental Status N/A Sepsis Action Taken by Nursing No Action Required 10/15/22 08:10 10/15/22 08:30 Temperature Temperature Source Pulse Rate 62 58 L Pulse Rate from SpO2 Sensor 59 L 59 L Pulse Rhythm Respiratory Rate 10 L 19 Respiratory Effort / Characteristics Respiratory Depth Respiratory Pattern Blood Pressure Blood Pressure Mean Pulse Oximetry 94 93 Oxygen Delivery Method Sepsis Recent Fever Within 48 Hours Sepsis New/Unexplained Change in Mental Status Sepsis Action Taken by [facility] Medications Current Medication List: was personally reviewed by me Laboratory Data Attestation: I reviewed the patient's lab results. 10/15/22 08:31 10/15/22 08:31 Lab Results 10/15/22 10/15/22 10/15/22 Range/Units 08:31 08:31 08:31 WBC 6.30 (4.8-10.8) K/ul RBC 3.51 L (4.70-6.10) M/uL Hgb 11.1 L (14.0-18.0) g/dl Hct 33.0 L (42.0-52.0) % MCV 94.0 (80.0-100.0) fL MCH 31.6 (25.0-34.0) pg MCHC 33.6 (32.0-36.0) g/dL RDW Std Deviation 44.0 (36.4-46.3) fL RDW Coeff of Fran 12.7 (11.5-14.5) % Plt Count 162 (130-400) K/uL MPV 9.9 (9.4-12.4) fL Immature Gran % (Auto) 0.2 % Neut % (Auto) 89.9 % Lymph % (Auto) 5.6 % [place] % (Auto) 4.1 % Eos % (Auto) 0.0 % Baso % (Auto) 0.2 % Neut # (Auto) 5.67 (1.40-6.50) K/uL Lymph # (Auto) 0.35 L (1.20-3.40) K/uL [place] # (Auto) 0.26 (0.11-0.59) K/uL Eos # (Auto) 0.00 (0.00-0.50) K/uL Baso # (Auto) 0.01 (0.00-0.20) K/uL Immature Gran # (Auto) 0.01 (0.01-0.20) K/uL PT 11.8 (9.0-12.0) Seconds INR 1.1 (0.9-1.1) Sodium 137 (136-145) mmol/L Potassium 4.9 (3.5-5.1) mmol/L Chloride 104 (98-107) mmol/L Carbon Dioxide 28 (21-32) mmol/L Anion Gap 5 (3-11) BUN 23 (6-23) mg/dl Creatinine 1.29 (0.6-1.4) mg/dl Est Cr Clr Drug Dosing 52.8 ml/min Est GFR ( Amer) 59.4 ml/min Est GFR (Non-Af Amer) 51.3 ml/min BUN/Creatinine Ratio 17.8 (10-20) Glucose 147 H (70-99(Fasting)) mg/dl Calcium 8.9 (8.6-10.3) mg/dl Magnesium 2.0 (1.7-2.4) mg/dl Total Bilirubin 0.8 (0.2-1.0) mg/dl AST 19 (13-39) U/L ALT 13 (7-52) U/L Alkaline Phosphatase 54 (34-104) U/L Total Creatine Kinase 122 (30-223) U/L Troponin I High Sens 16.3 (0-20) pg/ml Total Protein 6.6 (6.0-8.3) gm/dl Albumin 3.9 (3.4-5.0) gm/dl Globulin 2.7 (2.5-4.0) gm/dl Albumin/Globulin Ratio 1.4 (0.9-2) TSH (0.300-4.500) uIu/ml Urine Color Urine Appearance (Clear) Urine pH (4.5-7.5) Ur Specific [place] (1.000-1.030) Urine Protein (Negative) Urine Glucose (UA) (Negative) Urine Ketones (Negative) Urine Blood (Negative) Urine Nitrite (Negative) Urine Bilirubin (Negative) Urine Urobilinogen (Negative) Ur Leukocyte Esterase (Negative) Salicylates (3.0-30) mg/dl Urine Opiates Screen (Neg) Ur Methadone, Qual (Neg) Acetaminophen (10-30) ug/ml Urine Barbiturates (Neg) Ur Phencyclidine (PCP) (Neg) U Amphetamin/Meth Scrn (Neg) MDMA (Ecstasy) Screen (Neg) U Benzodiazepines Scrn (Neg) Ur Cocaine Metabolite (Neg) U Marijuana (THC) Screen (Neg) U Marijuana THC Carboxy (<5) ng/mL Drug Screen Comment Ethyl Alcohol mg/dL (<10.0) mg/dl Anaplasma Smear Lyme Disease IgG Ab (Negative) Lyme Disease IgM Ab (Negative) SARS-CoV-2 (PCR) (Negative) Influenza Type A (PCR) (Neg) Influenza Type B (PCR) (Neg) RSV (RT-PCR) (Neg) 10/15/22 10/15/22 10/15/22 Range/Units 08:31 08:31 08:31 WBC (4.8-10.8) K/ul RBC (4.70-6.10) M/uL Hgb (14.0-18.0) g/dl Hct (42.0-52.0) % MCV (80.0-100.0) fL MCH (25.0-34.0) pg MCHC (32.0-36.0) g/dL RDW Std Deviation (36.4-46.3) fL RDW Coeff of Fran (11.5-14.5) % Plt Count (130-400) K/uL MPV (9.4-12.4) fL Immature Gran % (Auto) % Neut % (Auto) % Lymph % (Auto) % [place] % (Auto) % Eos % (Auto) % Baso % (Auto) % Neut # (Auto) (1.40-6.50) K/uL Lymph # (Auto) (1.20-3.40) K/uL [place] # (Auto) (0.11-0.59) K/uL Eos # (Auto) (0.00-0.50) K/uL Baso # (Auto) (0.00-0.20) K/uL Immature Gran # (Auto) (0.01-0.20) K/uL PT (9.0-12.0) Seconds INR (0.9-1.1) Sodium (136-145) mmol/L Potassium (3.5-5.1) mmol/L Chloride (98-107) mmol/L Carbon Dioxide (21-32) mmol/L Anion Gap (3-11) BUN (6-23) mg/dl Creatinine (0.6-1.4) mg/dl Est Cr Clr Drug Dosing ml/min Est GFR ( Amer) ml/min Est GFR (Non-Af Amer) ml/min BUN/Creatinine Ratio (10-20) Glucose (70-99(Fasting)) mg/dl Calcium (8.6-10.3) mg/dl Magnesium (1.7-2.4) mg/dl Total Bilirubin (0.2-1.0) mg/dl AST (13-39) U/L ALT (7-52) U/L Alkaline Phosphatase (34-104) U/L Total Creatine Kinase (30-223) U/L Troponin I High Sens (0-20) pg/ml Total Protein (6.0-8.3) gm/dl Albumin (3.4-5.0) gm/dl Globulin (2.5-4.0) gm/dl Albumin/Globulin Ratio (0.9-2) TSH 1.483 (0.300-4.500) uIu/ml Urine Color Urine Appearance (Clear) Urine pH (4.5-7.5) Ur Specific [place] (1.000-1.030) Urine Protein (Negative) Urine Glucose (UA) (Negative) Urine Ketones (Negative) Urine Blood (Negative) Urine Nitrite (Negative) Urine Bilirubin (Negative) Urine Urobilinogen (Negative) Ur Leukocyte Esterase (Negative) Salicylates < 3.0 L (3.0-30) mg/dl Urine Opiates Screen (Neg) Ur Methadone, Qual (Neg) Acetaminophen < 3 L (10-30) ug/ml Urine Barbiturates (Neg) Ur Phencyclidine (PCP) (Neg) U Amphetamin/Meth Scrn (Neg) MDMA (Ecstasy) Screen (Neg) U Benzodiazepines Scrn (Neg) Ur Cocaine Metabolite (Neg) U Marijuana (THC) Screen (Neg) U Marijuana THC Carboxy (<5) ng/mL Drug Screen Comment Ethyl Alcohol mg/dL < 10.0 (<10.0) mg/dl Anaplasma Smear Lyme Disease IgG Ab (Negative) Lyme Disease IgM Ab (Negative) SARS-CoV-2 (PCR) (Negative) Influenza Type A (PCR) (Neg) Influenza Type B (PCR) (Neg) RSV (RT-PCR) (Neg) 10/15/22 10/15/22 10/15/22 Range/Units 12:40 12:41 12:41 WBC (4.8-10.8) K/ul RBC (4.70-6.10) M/uL Hgb (14.0-18.0) g/dl Hct (42.0-52.0) % MCV (80.0-100.0) fL MCH (25.0-34.0) pg MCHC (32.0-36.0) g/dL RDW Std Deviation (36.4-46.3) fL RDW Coeff of Fran (11.5-14.5) % Plt Count (130-400) K/uL MPV (9.4-12.4) fL Immature Gran % (Auto) % Neut % (Auto) % Lymph % (Auto) % [place] % (Auto) % Eos % (Auto) % Baso % (Auto) % Neut # (Auto) (1.40-6.50) K/uL Lymph # (Auto) (1.20-3.40) K/uL [place] # (Auto) (0.11-0.59) K/uL Eos # (Auto) (0.00-0.50) K/uL Baso # (Auto) (0.00-0.20) K/uL Immature Gran # (Auto) (0.01-0.20) K/uL PT (9.0-12.0) Seconds INR (0.9-1.1) Sodium (136-145) mmol/L Potassium (3.5-5.1) mmol/L Chloride (98-107) mmol/L Carbon Dioxide (21-32) mmol/L Anion Gap (3-11) BUN (6-23) mg/dl Creatinine (0.6-1.4) mg/dl Est Cr Clr Drug Dosing ml/min Est GFR ( Amer) ml/min Est GFR (Non-Af Amer) ml/min BUN/Creatinine Ratio (10-20) Glucose (70-99(Fasting)) mg/dl Calcium (8.6-10.3) mg/dl Magnesium (1.7-2.4) mg/dl Total Bilirubin (0.2-1.0) mg/dl AST (13-39) U/L ALT (7-52) U/L Alkaline Phosphatase (34-104) U/L Total Creatine Kinase (30-223) U/L Troponin I High Sens (0-20) pg/ml Total Protein (6.0-8.3) gm/dl Albumin (3.4-5.0) gm/dl Globulin (2.5-4.0) gm/dl Albumin/Globulin Ratio (0.9-2) TSH (0.300-4.500) uIu/ml Urine Color Yellow Urine Appearance Clear (Clear) Urine pH 6.5 (4.5-7.5) Ur Specific [place] 1.024 (1.000-1.030) Urine Protein Negative (Negative) Urine Glucose (UA) Negative (Negative) Urine Ketones Trace H (Negative) Urine Blood Negative (Negative) Urine Nitrite Negative (Negative) Urine Bilirubin Negative (Negative) Urine Urobilinogen Negative (Negative) Ur Leukocyte Esterase Negative (Negative) Salicylates (3.0-30) mg/dl Urine Opiates Screen Neg (Neg) Ur Methadone, Qual Neg (Neg) Acetaminophen (10-30) ug/ml Urine Barbiturates Neg (Neg) Ur Phencyclidine (PCP) Neg (Neg) U Amphetamin/Meth Scrn Neg (Neg) MDMA (Ecstasy) Screen Neg (Neg) U Benzodiazepines Scrn Neg (Neg) Ur Cocaine Metabolite Neg (Neg) U Marijuana (THC) Screen Pos H (Neg) U Marijuana THC Carboxy (<5) ng/mL Drug Screen Comment Ethyl Alcohol mg/dL (<10.0) mg/dl Anaplasma Smear Lyme Disease IgG Ab (Negative) Lyme Disease IgM Ab (Negative) SARS-CoV-2 (PCR) NEGATIVE (Negative) Influenza Type A (PCR) Negative (Neg) Influenza Type B (PCR) Negative (Neg) RSV (RT-PCR) Negative (Neg) 10/15/22 10/15/22 10/15/22 Range/Units 12:41 13:11 13:11 WBC (4.8-10.8) K/ul RBC (4.70-6.10) M/uL Hgb (14.0-18.0) g/dl Hct (42.0-52.0) % MCV (80.0-100.0) fL MCH (25.0-34.0) pg MCHC (32.0-36.0) g/dL RDW Std Deviation (36.4-46.3) fL RDW Coeff of Fran (11.5-14.5) % Plt Count (130-400) K/uL MPV (9.4-12.4) fL Immature Gran % (Auto) % Neut % (Auto) % Lymph % (Auto) % [place] % (Auto) % Eos % (Auto) % Baso % (Auto) % Neut # (Auto) (1.40-6.50) K/uL Lymph # (Auto) (1.20-3.40) K/uL [place] # (Auto) (0.11-0.59) K/uL Eos # (Auto) (0.00-0.50) K/uL Baso # (Auto) (0.00-0.20) K/uL Immature Gran # (Auto) (0.01-0.20) K/uL PT (9.0-12.0) Seconds INR (0.9-1.1) Sodium (136-145) mmol/L Potassium (3.5-5.1) mmol/L Chloride (98-107) mmol/L Carbon Dioxide (21-32) mmol/L Anion Gap (3-11) BUN (6-23) mg/dl Creatinine (0.6-1.4) mg/dl Est Cr Clr Drug Dosing ml/min Est GFR ( Amer) ml/min Est GFR (Non-Af Amer) ml/min BUN/Creatinine Ratio (10-20) Glucose (70-99(Fasting)) mg/dl Calcium (8.6-10.3) mg/dl Magnesium (1.7-2.4) mg/dl Total Bilirubin (0.2-1.0) mg/dl AST (13-39) U/L ALT (7-52) U/L Alkaline Phosphatase (34-104) U/L Total Creatine Kinase (30-223) U/L Troponin I High Sens (0-20) pg/ml Total Protein (6.0-8.3) gm/dl Albumin (3.4-5.0) gm/dl Globulin (2.5-4.0) gm/dl Albumin/Globulin Ratio (0.9-2) TSH (0.300-4.500) uIu/ml Urine Color Urine Appearance (Clear) Urine pH (4.5-7.5) Ur Specific [place] (1.000-1.030) Urine Protein (Negative) Urine Glucose (UA) (Negative) Urine Ketones (Negative) Urine Blood (Negative) Urine Nitrite (Negative) Urine Bilirubin (Negative) Urine Urobilinogen (Negative) Ur Leukocyte Esterase (Negative) Salicylates (3.0-30) mg/dl Urine Opiates Screen (Neg) Ur Methadone, Qual (Neg) Acetaminophen (10-30) ug/ml Urine Barbiturates (Neg) Ur Phencyclidine (PCP) (Neg) U Amphetamin/Meth Scrn (Neg) MDMA (Ecstasy) Screen (Neg) U Benzodiazepines Scrn (Neg) Ur Cocaine Metabolite (Neg) U Marijuana (THC) Screen (Neg) U Marijuana THC Carboxy 2549 H (<5) ng/mL Drug Screen Comment SEE NOTE Ethyl Alcohol mg/dL (<10.0) mg/dl Anaplasma Smear See Comment Lyme Disease IgG Ab Positive A (Negative) Lyme Disease IgM Ab Negative (Negative) SARS-CoV-2 (PCR) (Negative) Influenza Type A (PCR) (Neg) Influenza Type B (PCR) (Neg) RSV (RT-PCR) (Neg) Administered Medications Discontinued Medications Apixaban (Apixaban 5 Mg Tablet) 5 mg PO BID [facility] Stop: 11/14/22 23:05 Last Admin: 10/16/22 07:56 Dose: 5 mg Documented By: Admin: 10/15/22 23:41 Dose: 5 mg Documented By: MANOLO Aspirin (Aspirin 81 Mg Ectab) 81 mg PO QPM [facility] Stop: 11/14/22 23:05 Last Admin: 10/15/22 23:41 Dose: 81 mg Documented By: MANOLO Clopidogrel Bisulfate (Clopidogrel Bisulfate 75 Mg Tab) 75 mg PO QAM [facility] Stop: 11/15/22 15:29 Last Admin: 10/16/22 17:23 Dose: 75 mg Documented By: ROBERTO Digoxin (Digoxin 0.25 Mg Tab) 0.25 mg PO DAILY@1600 [facility] Stop: 11/14/22 23:05 Last Admin: 10/16/22 15:17 Dose: Not Given Documented By: Admin: 10/15/22 23:36 Dose: Not Given Documented By: MANOLO Finasteride (Finasteride 5 Mg Tab) 5 mg PO HS [facility] Stop: 11/14/22 23:05 Last Admin: 10/15/22 23:41 Dose: 5 mg Documented By: MANOLO Sodium Chloride (Nss) 1,000 mls @ 999 mls/hr IV .Q1H1M RIA Stop: 10/15/22 09:30 Last Infusion: 10/15/22 10:02 Dose: 0 mls/hr Documented By: Admin: 10/15/22 08:31 Dose: 999 mls/hr Documented By: LAURA Sodium Chloride (Nss) 1,000 mls @ 999 mls/hr IV .Q1H1M ONE Stop: 10/15/22 13:41 Last Infusion: 10/15/22 14:04 Dose: 0 mls/hr Documented By: Admin: 10/15/22 12:43 Dose: 999 mls/hr Documented By: LAURA Levothyroxine Sodium (Levothyroxine Sodium 112 Mcg Tablet) 112 mcg PO DAILYBB RIA Stop: 11/15/22 06:29 Last Admin: 10/16/22 06:26 Dose: 112 mcg Documented By: MANOLO Lorazepam (Lorazepam 2 Mg/1 Ml Vial) 0.5 mg IV NOW STA Stop: 10/15/22 15:51 Last Admin: 10/15/22 16:18 Dose: 0.5 mg Documented By: SAW Losartan Potassium (Losartan Potassium 50 Mg Tab) 100 mg PO QAM RIA Stop: 11/15/22 08:59 Last Admin: 10/16/22 07:56 Dose: 100 mg Documented By: ROBERTO Miscellaneous Information (Stroke Patient Discharge) 1 each N/A NOW STA Stop: 10/16/22 15:28 Last Admin: 10/16/22 17:23 Dose: 1 each Documented By: ROBERTO Rosuvastatin Calcium (Rosuvastatin Calcium 20 Mg Tab) 20 mg PO HS RIA Stop: 11/14/22 23:05 Last Admin: 10/15/22 23:41 Dose: 20 mg Documented By: MANOLO Imaging Data Radiologist's Impression: Chest X-Ray 10/15/22 08:20 XR chest 1V portable CLINICAL HISTORY: weakness TECHNIQUE: Single frontal radiograph of the chest was obtained. Comparison: Comparison is made to chest radiograph 08/11/2021 FINDINGS: No lines and tubes are seen. Cardiomegaly is noted. The aortic arch is calcified. The lungs are clear. Previously noted density in the left upper lung is no longer seen. No evidence of pleural effusion or pneumothorax. IMPRESSION: No acute chest disease. ACT 112: Negative or not required by law. Electronically signed by: Thony Webster M.D. 10/15/2022 8:[address] 10/15/22 08:[address] DOSE: 547.75 mGy.cm HISTORY: Altered mental status. TECHNIQUE: Multiaxial CT images of the head were performed without the use of intravenous contrast. Automated exposure control was utilized for this study. A dose lowering technique was utilized adhering to the principles of ALARA. Comparison: Head CT 08/11/2021. Brain MRI 08/11/2021. Findings: The paranasal sinuses and mastoid air cells are clear. The calvarium and skull base are intact. There is no mass, hematoma, midline shift, acute infarct. White matter hypodensity is nonspecific but suggestive of microvascular ischemic change. The ventricles and sulci demonstrate mild age-related involutional changes. Impression: No significant change compared to the prior study. No acute intracranial abnormality. ACT 112: Negative or not required by law. Electronically signed by: Juan Pablo Hidalgo M.D. 10/15/2022 9:31 AM Discharge Plan Visit Data Chief Complaint: Altered Mental Status Stated Complaint: AMS ED Provider: Arvind Mojica Discharge Problem: AMS (altered mental status), Atrial fibrillation, Anemia, Acute dehydration Patient Disposition: Admitted As Inpatient Discharge Instructions Interventions: ED Discharge Assessment Last Done: 10/15/22 22:10
[2022-10-15] MEDS ORDERED: SODIUM CHLORIDE 0.9% 1,000 ML IV SCH (08:30)
--- NOTE | 2022-10-15 08:50 | XRay Report ---
XR chest 1V portable CLINICAL HISTORY: weakness TECHNIQUE: Single frontal radiograph of the chest was obtained. Comparison: Comparison is made to chest radiograph 08/11/2021 FINDINGS: No lines and tubes are seen. Cardiomegaly is noted. The aortic arch is calcified. The lungs are clear . Previously noted density in the left upper lung is no longer seen. No evidence of pleural effusion or pneumothorax. IMPRESSION: No acute chest disease. ACT 112: Negative or not required by law. Electronically signed by: Thony Webster M.D. 10/15/2022 8:49 AM
[2022-10-15 09:00] LABS: Basophils # (auto) 0.01 K/uL (0.00-0.20); Basophils % (auto) 0.2 %; Hemoglobin 11.1 g/dl (14.0-18.0); Immature Granulocytes # (auto) 0.01 K/uL (0.01-0.20); Immature Granulocytes % (auto) 0.2 %; Lymphocytes # (auto) 0.35 K/uL (1.20-3.40); Lymphocytes % (auto) 5.6 %; Mean Corpuscular Hemoglobin 31.6 pg (25.0-34.0); Mean Corpuscular Hgb Conc 33.6 g/dL (32.0-36.0); Mean Platelet Volume 9.9 fL (9.4-12.4); Monocytes # (auto) 0.26 K/uL (0.11-0.59); Monocytes % (auto) 4.1 %; Neutrophils # (auto) 5.67 K/uL (1.40-6.50); Neutrophils % (auto) 89.9 %; Platelet Count 162 K/uL (130-400); RDW Coefficient of Variation 12.7 % (11.5-14.5); Red Blood Count 3.51 M/uL (4.70-6.10)
[2022-10-15 09:09] LABS: Albumin Globulin Ratio 1.4 (0.9-2); Albumin Level 3.9 gm/dl (3.4-5.0); BUN Creatinine Ratio 17.8 (10-20); Bilirubin,Total 0.8 mg/dl (0.2-1.0); Calcium 8.9 mg/dl (8.6-10.3); Creatinine Clr Calc Pharmacy 52.8 ml/min; Est GFR (African American) 59.4 ml/min; Est GFR (Non-African American) 51.3 ml/min; Globulin 2.7 gm/dl (2.5-4.0); Potassium 4.9 mmol/L (3.5-5.1); Total Protein 6.6 gm/dl (6.0-8.3)
[2022-10-15 09:14] LABS: Troponin I High Sensitivity 16.3 pg/ml (0-20)
[2022-10-15 09:16] LABS: INR 1.1 (0.9-1.1); Prothrombin Time 11.8 Seconds (9.0-12.0)
--- NOTE | 2022-10-15 09:32 | CT Scan Report ---
HEAD CT NONCONTRAST CT DOSE: 547.75 mGy.cm HISTORY: Altered mental status. TECHNIQUE: Multiaxial CT images of the head were performed without the use of intravenous contrast. A utomated exposure control was utilized for this study. A dose lowering technique was utilized adheri ng to the principles of ALARA. Comparison: Head CT 08/11/2021. Brain MRI 08/11/2021. Findings: The paranasal sinuses and mastoid air cells are clear. The calvarium and skull base are int act. There is no mass, hematoma, midline shift, acute infarct. White matter hypodensity is nonspecifi c but suggestive of microvascular ischemic change. The ventricles and sulci demonstrate mild age-rela wesly involutional changes. Impression: No significant change compared to the prior study. No acute intracranial abnormality. ACT 112: Negative or not required by law. Electronically signed by: Juan Pablo Hidalgo M.D. 10/15/2022 9:31 AM
[2022-10-15 09:35] LABS: Acetaminophen < 3 ug/ml (10-30); Salicylate < 3.0 mg/dl (3.0-30)
[2022-10-15] MEDS ORDERED: SODIUM CHLORIDE 0.9% 1,000 ML IV ONE (12:41)
[2022-10-15 12:52] LABS: Appearance Urine Clear (Clear); Bilirubin Urine Negative (Negative); Blood Urine Negative (Negative); Color Urine Yellow; Glucose Urine UA Negative (Negative); Ketones Urine Trace (Negative); Leukocyte Esterase Urine Negative (Negative); Nitrite Urine Negative (Negative); Protein Urine Negative (Negative); Specific Gravity Urine 1.024 (1.000-1.030); Urobilinogen Urine Negative (Negative); pH Urine 6.5 (4.5-7.5)
--- NOTE | 2022-10-15 13:11 | History & Physical Report ---
Date of Service October 15, 2022 Assessment & Plan (1) AMS (altered mental status): Plan: Patient is a 81-year-old male with PMH atrial fibrillation anticoagulated on Eliquis, history of episodes of expressive aphasia, possible TIA in the past, HTN, HLD, BPH, hypothyroidism presented to ER with complaint of altered mental status this morning. In ER afebrile, vital stable CT head: No acute intracranial abnormality CXR: No acute infiltrate per my interpretation. Radiologist read as no acute disease UA not consistent with urinary tract infection. Negative alcohol, acetaminophen, salicylates Lyme IgG positive, has been positive in past also. Western blot is pending Peripheral smear not consistent with anaplasmosis, anaplasmosis, PCR pending Urine drug screen + Marijuana AMS may be secondary to underlying illness, substance use. DDX: TIA, CVA (History episodes expressive aphasia in past initially thought secondary to TIAs however neurologist thinks TIAs less likely and was diagnosed with functional neurologic speech disorder) During ER course patient becoming increasingly conversant however with continued slow speech MRI brain pending Continue aspirin, Eliquis, rosuvastatin PT/OT eval Fall precautions CBC, BMP in a.m. Neurology consult (2) Atrial fibrillation: Plan: Chronically anticoagulated on Eliquis EKG: Atrial fibrillation, rate 64, nonspecific ST changes that are similar to EKG on 04/23/2021 per my interpretation Digoxin level: 1.9 Continue Eliquis, digoxin (3) Anemia: Plan: H/H: . Hgb: 13.9 on 05/10/2022 Anemia labs, FOBT pending (4) Hyperglycemia: Plan: Random glucose: 147 A1c: 5.8 on 08/11/2022 A1c in a.m. (5) Hypertension: Plan: Continue losartan (6) Dyslipidemia: Plan: Continue rosuvastatin (7) CKD (chronic kidney disease), stage II: Plan: Cr: 1.29. Baseline 1.2-1.3 Monitor renal functions (8) BPH (benign prostatic hyperplasia): Plan: Continue finasteride (9) Hypothyroidism: Plan: TSH: 1.4 Continue levothyroxine DVT Prophylaxis On Eliquis Full Code as per discussion with pt Follows with Dr Roche for routine care Pt was seen and care coordinated with Dr Wayne. See addendum History of Present Illness Chief Complaint: AMS Primary Care Provider: Uday Roche DO Patient is a 81-year-old male with PMH atrial fibrillation anticoagulated on Eliquis, history of episodes of expressive aphasia, possible TIA in the past, HTN, HLD, BPH, hypothyroidism presented to ER with complaint of altered mental status this morning. History obtained from patient, patient's significant other as well as inpatient and outpatient chart review. Patient states 2 days ago started medical marijuana that he is using sublingually once a day. He states 2 days ago used for the first time and last night used for the second time. He used prior to going to bed. He states usually prior to following sleep he reads however last night was unable to read more than a few words and then just went to sleep. Significant other states when they awoke this morning she found significant other with his legs hanging out of the bed. And he seemed very fatigued and was unable to stand up out of bed. There was no fall. Significant states patient with slow speech at baseline however this morning noted that patient had severely slowed speech and was not really talking. While here in ER patient noted to be more alert however is still sleepy and is more conversant now with speech slower than his baseline. Denies any noted facial drooping. Patient also states past 2 days has had intermittent nonproductive cough. 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 Patient states 3 months ago had tick crawling on him that was not embedded yet. Denies any other known tick bites. Drinks 1-2 beers daily. Last night had 2 beers. He denies other recreational drug use. Significant other is concerned about possible underlying depression. She states patient been napping denies fever/chills, diaphoresis, N/V/D/C, HAGAN, dizziness, syncope, vision changes, neck pain, CP, SOB, palpitations, hemoptysis, sore throat, choking, otalgia, rhinorrhea, abdominal pain, paresthesias, extremity edema, rashes, urinary symptoms. Reports multiple episodes in past of expressive aphasia that lasted approximately 1 hour and self resolved. Prior brain MRIs have been negative Per outpatient chart review patient was out of state when he had an episode of dysarthria and at that time his warfarin was discontinued and apixaban was started. He had another episode of dysarthria while traveling in [place] in 02/2022 and is reported that patient had negative MRI brain and normal EEG at that time. Was readmitted in 02/2022 at [facility] neurology thought episodes were likely not TIAs but possible focal seizures and Keppra was started. Patient seen again at [facility] in 03/2022 due to excessive fatigue that was thought secondary to Keppra and Keppra was discontinued. Followed with local neurologist, Dr. Echols who also feels these episodes are likely not TIAs. He had noted slowed speech. Outpatient chart review: 03/10/2022: CT head: No visible acute infarct. Mild chronic small vessel ischemic changes and diffuse prequel volume loss. No parenchymal hemorrhage, midline shift, hydrocephalus, or abnormal extra-axial collection. No skull fracture. 03/10/2022: CTA head: No stenosis or occlusion of the bilateral internal carotid arteries or anterior cerebral arteries. No stenosis or occlusion of the left middle cerebral artery. Moderate focus stenosis of mid segment of right M1 spanning approximately 2 mm in length. No stenosis or occlusion of posterior circulation. History CTA neck 03/10/2022: 9 aneurysmal thoracic aortic arch. Origins of the great vessels are widely patent. Mild atherosclerotic calcification of bilateral carotid bulbs. No stenosis or occlusion of the common carotid or cervical internal carotid arteries bilaterally. No evidence of dissection. Dominant left vertebral artery with diminutive right vertebral artery. No stenosis or occlusion of either vertebral artery. No evidence of dissection. Allergies Allergy/AdvReac Type Severity Reaction Status Date / Time alfuzosin AdvReac Intermediate DIZZINESS/W Verified 10/15/22 10:24 [facility] Medications Medication Instructions Recorded Confirmed Type acetaminophen 500 mg tablet 1,000 mg PO Q6H PRN Pain 09/11/18 10/15/22 History aspirin 81 mg tablet,delayed 81 mg PO QPM 09/11/18 10/15/22 History release digoxin 250 mcg (0.25 mg) tablet 250 mcg PO HS 09/11/18 10/15/22 History rosuvastatin 20 mg tablet 20 mg PO HS 09/11/18 10/15/22 History finasteride 5 mg tablet 5 mg PO HS 08/03/19 10/15/22 History amoxicillin 500 mg capsule 2,000 mg PO DIRECTED PRN 1 HOUR 08/11/21 10/15/22 History PRIOR TO DENTAL APPT. levothyroxine 112 mcg tablet 112 mcg PO DAILYBB 08/11/21 10/15/22 History apixaban 5 mg tablet (Eliquis) 5 mg PO BID 10/15/22 10/15/22 History losartan 100 mg tablet 100 mg PO QAM 10/15/22 10/15/22 History Past Med/Surg History Medical History Atrial fibrillation BPH (benign prostatic hyperplasia) Cerebrovascular disease "history TIA's" CKD (chronic kidney disease), stage II Dyslipidemia Hiatal hernia Hypertension Hypothyroidism Stroke-like symptom Surgical History H/O vasectomy History of bilateral knee replacement "Dr. Mayer 2011 and 2013" History of inguinal hernia repair Family History Other Hypertension Stroke Social History Smoking Status: Unknown if ever smoked Second Hand Exposure: No; Do You Dip or Chew Tobacco: No; Hx Alcohol Use: No (unable to assess) Hx Substance Use: Yes (Medical card) Preferred Language: [place] Communication Ability: Impaired Communication Ability Comment: cognition [employer] Required: No Beliefs That Will Affect Care: None Current Living Situation: Spouse Current Living Situation Comment: lives with a woman, not Other Information That Helps Us Care for You: No Feels Safe at Home: Yes Safety Concerns: Feels Safe At This Time Assistive Devices: None Review of Systems Review of Systems: All systems reviewed & are unremarkable except as noted in HPI & below Physical Exam Physical Exam: General: +lethargic appearing, no acute distress, WDWN Head: normocephalic, atraumatic Eyes: PERRL, EOM's intact, conjunctiva non-injected, anicteric ENT: normal inspection external ears, nose, mucous membranes dry Neck: supple, trachea midline Lungs: clear, no respiratory distress, no wheezing/rhonchi/rales CV: irregularly irregular, rate 64, trace bilateral pretibial edema Abd: normal BS, soft, non-tender Ext: no cyanosis, no calf tenderness Neuro: +lethargic appearing, +drowsy, awakens to voice, oriented x 3. +slow speech but without slurring. no nystagmus, facial sensation is intact and symmetric, face is strong and symmetric, hearing grossly intact, soft palate elevates symmetrically, shoulder shrug intact, tongue is midline, normal movement, no fasciculations. Strength 5/5 throughout. normal affect Skin: warm, dry Results & Data Results & Data Vital Signs (Past 12 Hours) Vital Signs Temp Pulse Resp BP Pulse Ox O2 Del Method 10/15/22 12:17 62 10/15/22 12:00 69 17 137/85 10/15/22 11:30 63 17 137/82 10/15/22 11:00 61 20 145/84 H 10/15/22 10:30 86 16 10/15/22 10:00 62 13 144/92 H 91 10/15/22 09:30 58 L 20 130/68 93 10/15/22 09:00 51 L 17 119/69 95 10/15/22 08:42 53 L 18 118/64 93 10/15/22 08:30 58 L 19 93 10/15/22 08:10 62 10 L 94 10/15/22 08:07 59 L 21 96 Room Air 10/15/22 08:00 36.6 C 53 L 21 116/62 96 Room Air 10/15/22 08:16 59 L Laboratory Results Short CBC 10/15/22 Range/Units 08:31 WBC 6.30 (4.8-10.8) K/ul Hgb 11.1 L (14.0-18.0) g/dl Hct 33.0 L (42.0-52.0) % Plt Count 162 (130-400) K/uL BMP 10/15/22 08:31 Sodium 137 Potassium 4.9 Chloride 104 Carbon Dioxide 28 BUN 23 Creatinine 1.29 Glucose 147 H Calcium 8.9 Cardiac Enzymes 10/15/22 Range/Units 08:31 Total Creatine Kinase 122 (30-223) U/L Liver Function 10/15/22 Range/Units 08:31 Total Bilirubin 0.8 (0.2-1.0) mg/dl AST 19 (13-39) U/L ALT 13 (7-52) U/L Alkaline Phosphatase 54 (34-104) U/L Albumin 3.9 (3.4-5.0) gm/dl Urine 10/15/22 Range/Units 12:41 Urine Color Yellow Urine Appearance Clear (Clear) Urine pH 6.5 (4.5-7.5) Ur Specific [place] 1.024 (1.000-1.030) Urine Protein Negative (Negative) Urine Glucose (UA) Negative (Negative) Diagnostic Findings Chest X-Ray 10/15/22 08:20 XR chest 1V portable CLINICAL HISTORY: weakness TECHNIQUE: Single frontal radiograph of the chest was obtained. Comparison: Comparison is made to chest radiograph 08/11/2021 FINDINGS: No lines and tubes are seen. Cardiomegaly is noted. The aortic arch is calcified. The lungs are clear. Previously noted density in the left upper lung is no longer seen. No evidence of pleural effusion or pneumothorax. IMPRESSION: No acute chest disease. ACT 112: Negative or not required by law. Electronically signed by: Thony Webster M.D. 10/15/2022 8:[address] 10/15/22 08:[address] DOSE: 547.75 mGy.cm HISTORY: Altered mental status. TECHNIQUE: Multiaxial CT images of the head were performed without the use of intravenous contrast. Automated exposure control was utilized for this study. A dose lowering technique was utilized adhering to the principles of ALARA. Comparison: Head CT 08/11/2021. Brain MRI 08/11/2021. Findings: The paranasal sinuses and mastoid air cells are clear. The calvarium and skull base are intact. There is no mass, hematoma, midline shift, acute infarct. White matter hypodensity is nonspecific but suggestive of microvascular ischemic change. The ventricles and sulci demonstrate mild age-related involutional changes. Impression: No significant change compared to the prior study. No acute intracranial abnormality. ACT 112: Negative or not required by law. Electronically signed by: Juan Pablo Hidalgo M.D. 10/15/2022 9:31 AM Supervising Physician Co-Signing Physician Notes Pt seen and examined by myself, Sameera Wayne MD on the day of service. Care was coordinated with Korin Larson PA-C. 81yoM with PMHx significant for years of expressive aphasia being closely followed by Neurology presenting with AMS after using medical marijuana the night before. On my exam, was alert, not oriented with extreme difficulty expressing answers to questions. CT head unremarkable, MRI ordered. Lyme IgG positive but reportedly pt treated in the past as IgG has been positive. Will await pending Lyme IgM and bands. Consider empiric treatment in the setting of acute encephalopathy. Though stronger correlation with medical marijauna use. Follow tox screen, Neurology consult, greatly appreciate recs. Suspect use of medical marijuana that he has taken before is likely exacerbating an underlying neurological process (eg. dementia?) PRN meds for agitation/delirium. Otherwise as above. (5) Hypertension Hypertension type: unspecified Qualified Code(s): I10 - Essential (primary) hypertension
[2022-10-15 13:38] LABS: Influenza A virus by PCR Negative (Neg); Influenza B virus by PCR Negative (Neg); RSV by PCR Negative (Neg); SARS CoV2 RNA(COVID-19) Ceph NEGATIVE (Negative)
[2022-10-15 14:21] LABS: Lyme Ab IgM w/WB Rflx Negative (Negative)
[2022-10-15 14:29] LABS: Lyme Ab IgG w/WB Rflx Positive (Negative)
[2022-10-15 14:51] LABS: Amphetamines+Metham, Urine Neg (Neg); Barbiturates, Urine Neg (Neg); Benzodiazepine, Urine Neg (Neg); Cocaine, Urine Neg (Neg); MDMA (Ecstacy), Urine Neg (Neg); Methadone, Urine Neg (Neg); Opiate, Urine Neg (Neg); Phencyclidine, Urine Neg (Neg)
[2022-10-15] MEDS ORDERED: LORazepam 2 MG/1 ML VIAL IV STA (15:50)
--- NOTE | 2022-10-15 16:59 | Magnetic Resonance Report ---
MR brain wo con HISTORY: 81 years-old Male lethargy, INR 1.0, a fib acutely altered mental status COMPARISON: Head CT of same day, brain MRI 08/11/2021 TECHNIQUE: Multiplanar multisequence MRI of the brain was obtained without the use of IV contrast. FINDINGS: No restricted diffusion. Midline structures are. There is no acute intracranial hemorrhage, midline s hift, abnormal extra-axial collection, hydrocephalus or intra-axial mass. The lesional changes with m oderate T2/FLAIR hyperintense foci throughout the white matter. Cerebral venous sinuses and major arterial flow voids are patent. Skull, orbits and soft tissues are unremarkable. Small bilateral mastoid effusions. IMPRESSION: 1. No acute intracranial abnormality. 2. No acute or subacute infarct. 3. Involutional changes with chronic microvascular ischemic disease. ACT 112: Negative or not required by law. The above report was generated using voice recognition software. It may contain grammatical, syntax o r spelling errors. Electronically signed by: Justin Cornejo M.D. 10/15/2022 4:57 PM
--- NOTE | 2022-10-15 18:12 | Electrocardiogram Report ---
Test Reason : Blood Pressure : / mmHG Vent. Rate : 064 BPM Atrial Rate : 000 BPM P-R Int : 000 ms QRS Dur : 100 ms QT Int : 416 ms P-R-T Axes : 000 054 041 degrees QTc Int : 429 ms Atrial fibrillation Nonspecific ST abnormality Abnormal ECG When compared with ECG of 11-AUG-2021 00:06, No significant change was found Confirmed by Raymon Hendrickson ([id number]) on 10/15/2022 6:12:14 PM Referred By: REFERRED SELF Confirmed By:Elgin Hendrickson
[2022-10-15] MEDS ORDERED: ACETAMINOPHEN 325 MG TAB PO PRN (23:06)
[2022-10-15] MEDS ORDERED: ROSUVASTATIN CALCIUM 20 MG TAB PO SCH (23:06)
[2022-10-15] MEDS ORDERED: PHARMACIST DISCHARGE MED REC CONSULT PRN (23:06)
[2022-10-15] MEDS ORDERED: FINASTERIDE 5 MG TAB PO SCH (23:06)
[2022-10-15] MEDS ORDERED: ONDANSETRON INJ 2 MG/ML 2 ML VIAL IV PRN (23:06)
[2022-10-15] MEDS ORDERED: ASPIRIN 81 MG ECTAB PO SCH (23:06)
[2022-10-15] MEDS ORDERED: POLYETHYLENE (MIRALAX) 17 GM PACK PO PRN (23:06)
[2022-10-15] MEDS: DIGOXIN 0.25 MG TAB PO SCH (23:36)
[2022-10-15] MEDS: APIXABAN 5 MG TABLET PO SCH (23:41)
[2022-10-16] MEDS ORDERED: LEVOTHYROXINE SODIUM 112 MCG TABLET PO SCH (06:30)
[2022-10-16 06:39] LABS: Hematocrit (blood only) 34.2 % (42.0-52.0); Hemoglobin 11.2 g/dl (14.0-18.0); Mean Corpuscular Hemoglobin 31.5 pg (25.0-34.0); Mean Corpuscular Hgb Conc 32.7 g/dL (32.0-36.0); Mean Corpuscular Volume 96.1 fL (80.0-100.0); Mean Platelet Volume 10.4 fL (9.4-12.4); Platelet Count 150 K/uL (130-400); RDW Coefficient of Variation 12.8 % (11.5-14.5); RDW Standard Deviation 44.9 fL (36.4-46.3); Red Blood Count 3.56 M/uL (4.70-6.10)
[2022-10-16 06:56] LABS: BUN Creatinine Ratio 17.1 (10-20); Calcium 8.9 mg/dl (8.6-10.3); Chol HDL Ratio 2.4 (0-5); Est GFR (African American) 66.9 ml/min; Est GFR (Non-African American) 57.7 ml/min; Potassium 4.6 mmol/L (3.5-5.1)
[2022-10-16 07:15] LABS: Ferritin 92.5 ng/ml (8-388)
[2022-10-16 07:18] LABS: Folate (Folic Acid),Ser orPlas 10.69 ng/ml (>5.38)
[2022-10-16] MEDS: APIXABAN 5 MG TABLET PO SCH (07:56)
[2022-10-16 08:20] LABS: Estimated Average Glucose 117 mg/dl; Hemoglobin A1C 5.7 % (4.5-5.6)
[2022-10-16] MEDS ORDERED: LOSARTAN POTASSIUM 50 MG TAB PO SCH (09:00)
--- NOTE | 2022-10-16 09:21 | Hospitalist Progress Note ---
Date of Service October 16, 2022 Assessment & Plan (1) AMS (altered mental status): Plan: Patient is a 81-year-old male with PMH atrial fibrillation anticoagulated on Eliquis, history of episodes of expressive aphasia, possible TIA in the past, HTN, HLD, BPH, hypothyroidism presented to ER with complaint of altered mental status this morning. In ER afebrile, vital stable CT head: No acute intracranial abnormality CXR: No acute infiltrate per my interpretation. Radiologist read as no acute disease UA not consistent with urinary tract infection. Negative alcohol, acetaminophen, salicylates Lyme IgG positive, has been positive in past also. Western blot is pending Peripheral smear not consistent with anaplasmosis, anaplasmosis, PCR pending Urine drug screen + Marijuana AMS may be secondary to underlying illness, substance use. DDX: TIA, CVA (History episodes expressive aphasia in past initially thought secondary to TIAs however neurologist thinks TIAs less likely and was diagnosed with functional neurologic speech disorder) During ER course patient becoming increasingly conversant however with continued slow speech MRI brain obtained - IMPRESSION: 1. No acute intracranial abnormality. 2. No acute or subacute infarct. 3. Involutional changes with chronic microvascular ischemic disease. Continue Eliquis, rosuvastatin - will switch asa to plavix (as discussed w/ rosey valarie) PT/OT eval - ok to DC home Neurology consulted - per Dr. Alfaro - resolved episode of altered mental status, likely due to recent initiation of medical marijuana. This patient does, however, have fairly significant aprosodic speech (lacking normal tonality and rhythmicity). This type of abnormal speech pattern localizes to the right cerebral hemisphere, right MCA territory, and is different from a more typical aphasia that would localize to the left cerebral hemisphere/left MCA territory. 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 He does not have a significant vascular lesion of the carotid vessels in the neck. I suspect his aprosodic speech pattern, which has been persistent, but with episodes of intermittent worsening, is related to impaired cerebral perfusion to the right MCA territory. I do note that there is no evidence of acute or subacute infarct in this vascular territory on recent and previous brain MRIs done at [facility] going back to 2019. 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 It may be worthwhile to pursue an outpatient CT or MR perfusion scan to further assess his cerebral perfusion in the context of the above right MCA stenosis. In selected cases, stenting can be completed although this treatment is not standard. Conventional management consists of statin and antiplatelet therapy. He should continue with rosuvastatin at the current dosage, his calculated LDL is 39 which is appropriate (goal LDL less than 70). Would consider switching from aspirin 81 mg/day, to clopidogrel 75 mg/day. Patient is also on Eliquis in light of his history of atrial fibrillation, he should continue with this medication. Dual antiplatelet therapy could be considered, however, I think the bleeding risk would outweigh the benefit in this patient as he is also anticoagulated. Long-term blood pressure management guidelines would suggest maintaining a blood pressure of less than 130 over 80 mmHg. However, in this patient's case, it may be best to allow for a slightly higher blood pressure, around 140/80 mmHg to avoid worsening low perfusion to the right MCA territory. An outpatient consultation with a stroke specialist at [facility] for consideration of CT or MR perfusion scanning and additional potential treatment options, such as MCA stenting (again, not standard, but could be considered on a [id number] basis) should be made. I also considered the possibility that this patient's aprosodic speech could be due to a frontotemporal dementia variant. If this is the case, however, I would expect continued progression/deterioration in his speech with later development of other cognitive deficits. In that context, it may be worthwhile to pursue outpatient formal neuropsychological testing. (2) Atrial fibrillation: Plan: Chronically anticoagulated on Eliquis EKG: Atrial fibrillation, rate 64, nonspecific ST changes that are similar to EKG on 04/23/2021 per my interpretation Digoxin level: 1.9 Continue Eliquis, digoxin (3) Anemia: Plan: H/H: . Hgb: 13.9 on 05/10/2022 Anemia labs, FOBT pending vit B12 307 - low normal - consider supplement folic acid 10 Follow up as outpt (4) Hyperglycemia: Plan: Random glucose: 147 A1c: 5.8 on 08/11/2022 Current A1c 5.7% (5) Hypertension: Plan: Continue losartan monitor BP (6) Dyslipidemia: Plan: Continue rosuvastatin (7) CKD (chronic kidney disease), stage II: Plan: Cr: 1.29. Baseline 1.2-1.3 Monitor renal functions (8) BPH (benign prostatic hyperplasia): Plan: Continue finasteride (9) Hypothyroidism: Plan: TSH: 1.4 Continue levothyroxine DVT Prophylaxis On Eliquis Admission and Anticipated Discharge Date Admission Date: October 15, 2022 Subjective Pt seen in follow up of altered mental status Currently laying in bed in NAD, feeling well and back to his baseline Pt's is also present at the bedside and confirms the history and confirms the pt is back to his baseline Patient has any fevers chills chest pain shortness of breath abdominal pain, nausea also denies any headache weakness or numbness Seen by neurology today - discussed w/ neurology - ok to DC pt and start plavix instead of ASA Review of Systems Review of Systems: All systems reviewed & are unremarkable except as noted in Subjective Physical Exam Physical Exam: General: WDWN M in NAD Head: normocephalic, atraumatic Eyes: PERRL, EOM's intact, conjunctiva non-injected, anicteric ENT: normal inspection external ears, nose Neck: supple, trachea midline Lungs: clear, no respiratory distress, no wheezing/rhonchi/rales CV: irregularly irregular Abd: normal BS, soft, non-tender Ext: moves extremities Neuro: Awake and alert, answers appropriately, +slow speech but without slurring. No facial asymmetry, moves extremities, no weakness Skin: warm, dry Results & Data Results & Data Vital Signs (Past 12 Hours) Vital Signs Temp Pulse Pulse Resp BP BP Pulse Ox 10/16/22 07:40 36.5 C 53 L 20 159/79 H 95 10/16/22 03:03 36.6 C 73 18 127/73 94 10/15/22 22:39 53 L 10/15/22 23:58 36.8 C 68 14 147/75 H 97 10/15/22 22:10 64 18 132/70 96 O2 Del Method 10/16/22 07:40 Room Air 10/16/22 03:03 Room Air 10/15/22 22:39 10/15/22 23:58 Room Air 10/15/22 22:10 Room Air Laboratory Results 09/10/3010/16/22 10/16/22 Range/Units 05:23 05:23 05:23 WBC (4.8-10.8) K/ul RBC (4.70-6.10) M/uL Hgb (14.0-18.0) g/dl Hct (42.0-52.0) % MCV (80.0-100.0) fL MCH (25.0-34.0) pg MCHC (32.0-36.0) g/dL RDW Std Deviation (36.4-46.3) fL RDW Coeff of Fran (11.5-14.5) % Plt Count (130-400) K/uL MPV (9.4-12.4) fL Sodium 141 (136-145) mmol/L Potassium 4.6 (3.5-5.1) mmol/L Chloride 109 H (98-107) mmol/L Carbon Dioxide 27 (21-32) mmol/L Anion Gap 5 (3-11) BUN 20 (6-23) mg/dl Creatinine 1.17 (0.6-1.4) mg/dl Est Cr Clr Drug Dosing 59.0 ml/min Est GFR ( Amer) 66.9 ml/min Est GFR (Non-Af Amer) 57.7 ml/min BUN/Creatinine Ratio 17.1 (10-20) Glucose 93 (70-99(Fasting)) mg/dl Estimat Average Glucose 117 mg/dl Hemoglobin A1c 5.7 H (4.5-5.6) % Calcium 8.9 (8.6-10.3) mg/dl Iron 45 (35-175) mcg/dl Transferrin 193 L (200-360) mg/dl Ferritin 92.5 (8-388) ng/ml Total Creatine Kinase (30-223) U/L Triglycerides 61 (0-150) mg/dl Cholesterol 88 (0-200) mg/dl LDL Cholesterol, Calc 39 mg/dl VLDL Cholesterol, Calc 12 (0-30) mg/dl HDL Cholesterol 37 mg/dl Cholesterol/HDL Ratio 2.4 (0-5) Vitamin B12 307 (180-914) pg/ml Folate 10.69 (>5.38) ng/ml TSH (0.300-4.500) uIu/ml Urine Color Urine Appearance (Clear) Urine pH (4.5-7.5) Ur Specific [place] (1.000-1.030) Urine Protein (Negative) Urine Glucose (UA) (Negative) Urine Ketones (Negative) Urine Blood (Negative) Urine Nitrite (Negative) Urine Bilirubin (Negative) Urine Urobilinogen (Negative) Ur Leukocyte Esterase (Negative) Digoxin (0.8-2.0) ng/ml Salicylates (3.0-30) mg/dl Urine Opiates Screen (Neg) Ur Methadone, Qual (Neg) Acetaminophen (10-30) ug/ml Urine Barbiturates (Neg) Ur Phencyclidine (PCP) (Neg) U Amphetamin/Meth Scrn (Neg) MDMA (Ecstasy) Screen (Neg) U Benzodiazepines Scrn (Neg) Ur Cocaine Metabolite (Neg) U Marijuana (THC) Screen (Neg) U Marijuana THC Carboxy Drug Screen Comment Anaplasma Smear A. phagocytophilum DNA Lyme Disease IgG Ab (Negative) Lyme IgG (Western Blot) Lyme IgG 18 kDa Band Lyme IgG 23 kDa Band Lyme IgG 28 kDa Band Lyme IgG 30 kDa Band Lyme IgG 39 kDa Band Lyme IgG 41 kDa Band Lyme IgG 45 kDa Band Lyme IgG 58 kDa Band Lyme IgG 66 kDa Band Lyme IgG 93 kDa Band Lyme IgM Ab (WB) Lyme Disease IgM Ab (Negative) Lyme IgM 23 kDa Band Lyme IgM 39 kDa Band Lyme IgM 41 kDa Band SARS-CoV-2 (PCR) (Negative) E. chaffeensis IgG Ab E. chaffeensis IgM Ab E. chaffeensis Interp E. chaffeensis Comment Influenza Type A (PCR) (Neg) Influenza Type B (PCR) (Neg) RSV (RT-PCR) (Neg) 10/16/22 10/15/22 10/15/22 Range/Units 05:23 14:22 13:11 WBC 5.20 (4.8-10.8) K/ul RBC 3.56 L (4.70-6.10) M/uL Hgb 11.2 L (14.0-18.0) g/dl Hct 34.2 L (42.0-52.0) % MCV 96.1 (80.0-100.0) fL MCH 31.5 (25.0-34.0) pg MCHC 32.7 (32.0-36.0) g/dL RDW Std Deviation 44.9 (36.4-46.3) fL RDW Coeff of Fran 12.8 (11.5-14.5) % Plt Count 150 (130-400) K/uL MPV 10.4 (9.4-12.4) fL Sodium (136-145) mmol/L Potassium (3.5-5.1) mmol/L Chloride (98-107) mmol/L Carbon Dioxide (21-32) mmol/L Anion Gap (3-11) BUN (6-23) mg/dl Creatinine (0.6-1.4) mg/dl Est Cr Clr Drug Dosing ml/min Est GFR ( Amer) ml/min Est GFR (Non-Af Amer) ml/min BUN/Creatinine Ratio (10-20) Glucose (70-99(Fasting)) mg/dl Estimat Average Glucose mg/dl Hemoglobin A1c (4.5-5.6) % Calcium (8.6-10.3) mg/dl Iron (35-175) mcg/dl Transferrin (200-360) mg/dl Ferritin (8-388) ng/ml Total Creatine Kinase (30-223) U/L Triglycerides (0-150) mg/dl Cholesterol (0-200) mg/dl LDL Cholesterol, Calc mg/dl VLDL Cholesterol, Calc (0-30) mg/dl HDL Cholesterol mg/dl Cholesterol/HDL Ratio (0-5) Vitamin B12 (180-914) pg/ml Folate (>5.38) ng/ml TSH (0.300-4.500) uIu/ml Urine Color Urine Appearance (Clear) Urine pH (4.5-7.5) Ur Specific [place] (1.000-1.030) Urine Protein (Negative) Urine Glucose (UA) (Negative) Urine Ketones (Negative) Urine Blood (Negative) Urine Nitrite (Negative) Urine Bilirubin (Negative) Urine Urobilinogen (Negative) Ur Leukocyte Esterase (Negative) Digoxin 1.9 (0.8-2.0) ng/ml Salicylates (3.0-30) mg/dl Urine Opiates Screen (Neg) Ur Methadone, Qual (Neg) Acetaminophen (10-30) ug/ml Urine Barbiturates (Neg) Ur Phencyclidine (PCP) (Neg) U Amphetamin/Meth Scrn (Neg) MDMA (Ecstasy) Screen (Neg) U Benzodiazepines Scrn (Neg) Ur Cocaine Metabolite (Neg) U Marijuana (THC) Screen (Neg) U Marijuana THC Carboxy Drug Screen Comment Anaplasma Smear A. phagocytophilum DNA Lyme Disease IgG Ab (Negative) Lyme IgG (Western Blot) Pending Lyme IgG 18 kDa Band Pending Lyme IgG 23 kDa Band Pending Lyme IgG 28 kDa Band Pending Lyme IgG 30 kDa Band Pending Lyme IgG 39 kDa Band Pending Lyme IgG 41 kDa Band Pending Lyme IgG 45 kDa Band Pending Lyme IgG 58 kDa Band Pending Lyme IgG 66 kDa Band Pending Lyme IgG 93 kDa Band Pending Lyme IgM Ab (WB) Pending Lyme Disease IgM Ab (Negative) Lyme IgM 23 kDa Band Pending Lyme IgM 39 kDa Band Pending Lyme IgM 41 kDa Band Pending SARS-CoV-2 (PCR) (Negative) E. chaffeensis IgG Ab E. chaffeensis IgM Ab E. chaffeensis Interp E. chaffeensis Comment Influenza Type A (PCR) (Neg) Influenza Type B (PCR) (Neg) RSV (RT-PCR) (Neg) 10/15/22 10/15/22 10/15/22 Range/Units 13:11 13:11 13:11 WBC (4.8-10.8) K/ul RBC (4.70-6.10) M/uL Hgb (14.0-18.0) g/dl Hct (42.0-52.0) % MCV (80.0-100.0) fL MCH (25.0-34.0) pg MCHC (32.0-36.0) g/dL RDW Std Deviation (36.4-46.3) fL RDW Coeff of Fran (11.5-14.5) % Plt Count (130-400) K/uL MPV (9.4-12.4) fL Sodium (136-145) mmol/L Potassium (3.5-5.1) mmol/L Chloride (98-107) mmol/L Carbon Dioxide (21-32) mmol/L Anion Gap (3-11) BUN (6-23) mg/dl Creatinine (0.6-1.4) mg/dl Est Cr Clr Drug Dosing ml/min Est GFR ( Amer) ml/min Est GFR (Non-Af Amer) ml/min BUN/Creatinine Ratio (10-20) Glucose (70-99(Fasting)) mg/dl Estimat Average Glucose mg/dl Hemoglobin A1c (4.5-5.6) % Calcium (8.6-10.3) mg/dl Iron (35-175) mcg/dl Transferrin (200-360) mg/dl Ferritin (8-388) ng/ml Total Creatine Kinase (30-223) U/L Triglycerides (0-150) mg/dl Cholesterol (0-200) mg/dl LDL Cholesterol, Calc mg/dl VLDL Cholesterol, Calc (0-30) mg/dl HDL Cholesterol mg/dl Cholesterol/HDL Ratio (0-5) Vitamin B12 (180-914) pg/ml Folate (>5.38) ng/ml TSH (0.300-4.500) uIu/ml Urine Color Urine Appearance (Clear) Urine pH (4.5-7.5) Ur Specific [place] (1.000-1.030) Urine Protein (Negative) Urine Glucose (UA) (Negative) Urine Ketones (Negative) Urine Blood (Negative) Urine Nitrite (Negative) Urine Bilirubin (Negative) Urine Urobilinogen (Negative) Ur Leukocyte Esterase (Negative) Digoxin (0.8-2.0) ng/ml Salicylates (3.0-30) mg/dl Urine Opiates Screen (Neg) Ur Methadone, Qual (Neg) Acetaminophen (10-30) ug/ml Urine Barbiturates (Neg) Ur Phencyclidine (PCP) (Neg) U Amphetamin/Meth Scrn (Neg) MDMA (Ecstasy) Screen (Neg) U Benzodiazepines Scrn (Neg) Ur Cocaine Metabolite (Neg) U Marijuana (THC) Screen (Neg) U Marijuana THC Carboxy Drug Screen Comment Anaplasma Smear A. phagocytophilum DNA Pending Lyme Disease IgG Ab Positive A (Negative) Lyme IgG (Western Blot) Lyme IgG 18 kDa Band Lyme IgG 23 kDa Band Lyme IgG 28 kDa Band Lyme IgG 30 kDa Band Lyme IgG 39 kDa Band Lyme IgG 41 kDa Band Lyme IgG 45 kDa Band Lyme IgG 58 kDa Band Lyme IgG 66 kDa Band Lyme IgG 93 kDa Band Lyme IgM Ab (WB) Lyme Disease IgM Ab Negative (Negative) Lyme IgM 23 kDa Band Lyme IgM 39 kDa Band Lyme IgM 41 kDa Band SARS-CoV-2 (PCR) (Negative) E. chaffeensis IgG Ab Pending E. chaffeensis IgM Ab Pending E. chaffeensis Interp Pending E. chaffeensis Comment Pending Influenza Type A (PCR) (Neg) Influenza Type B (PCR) (Neg) RSV (RT-PCR) (Neg) 10/15/22 10/15/22 10/15/22 Range/Units 13:11 12:41 12:41 WBC (4.8-10.8) K/ul RBC (4.70-6.10) M/uL Hgb (14.0-18.0) g/dl Hct (42.0-52.0) % MCV (80.0-100.0) fL MCH (25.0-34.0) pg MCHC (32.0-36.0) g/dL RDW Std Deviation (36.4-46.3) fL RDW Coeff of Fran (11.5-14.5) % Plt Count (130-400) K/uL MPV (9.4-12.4) fL Sodium (136-145) mmol/L Potassium (3.5-5.1) mmol/L Chloride (98-107) mmol/L Carbon Dioxide (21-32) mmol/L Anion Gap (3-11) BUN (6-23) mg/dl Creatinine (0.6-1.4) mg/dl Est Cr Clr Drug Dosing ml/min Est GFR ( Amer) ml/min Est GFR (Non-Af Amer) ml/min BUN/Creatinine Ratio (10-20) Glucose (70-99(Fasting)) mg/dl Estimat Average Glucose mg/dl Hemoglobin A1c (4.5-5.6) % Calcium (8.6-10.3) mg/dl Iron (35-175) mcg/dl Transferrin (200-360) mg/dl Ferritin (8-388) ng/ml Total Creatine Kinase (30-223) U/L Triglycerides (0-150) mg/dl Cholesterol (0-200) mg/dl LDL Cholesterol, Calc mg/dl VLDL Cholesterol, Calc (0-30) mg/dl HDL Cholesterol mg/dl Cholesterol/HDL Ratio (0-5) Vitamin B12 (180-914) pg/ml Folate (>5.38) ng/ml TSH (0.300-4.500) uIu/ml Urine Color Urine Appearance (Clear) Urine pH (4.5-7.5) Ur Specific [place] (1.000-1.030) Urine Protein (Negative) Urine Glucose (UA) (Negative) Urine Ketones (Negative) Urine Blood (Negative) Urine Nitrite (Negative) Urine Bilirubin (Negative) Urine Urobilinogen (Negative) Ur Leukocyte Esterase (Negative) Digoxin (0.8-2.0) ng/ml Salicylates (3.0-30) mg/dl Urine Opiates Screen Neg (Neg) Ur Methadone, Qual Neg (Neg) Acetaminophen (10-30) ug/ml Urine Barbiturates Neg (Neg) Ur Phencyclidine (PCP) Neg (Neg) U Amphetamin/Meth Scrn Neg (Neg) MDMA (Ecstasy) Screen Neg (Neg) U Benzodiazepines Scrn Neg (Neg) Ur Cocaine Metabolite Neg (Neg) U Marijuana (THC) Screen Pos H (Neg) U Marijuana THC Carboxy Pending Drug Screen Comment Pending Anaplasma Smear See Comment A. phagocytophilum DNA Lyme Disease IgG Ab (Negative) Lyme IgG (Western Blot) Lyme IgG 18 kDa Band Lyme IgG 23 kDa Band Lyme IgG 28 kDa Band Lyme IgG 30 kDa Band Lyme IgG 39 kDa Band Lyme IgG 41 kDa Band Lyme IgG 45 kDa Band Lyme IgG 58 kDa Band Lyme IgG 66 kDa Band Lyme IgG 93 kDa Band Lyme IgM Ab (WB) Lyme Disease IgM Ab (Negative) Lyme IgM 23 kDa Band Lyme IgM 39 kDa Band Lyme IgM 41 kDa Band SARS-CoV-2 (PCR) (Negative) E. chaffeensis IgG Ab E. chaffeensis IgM Ab E. chaffeensis Interp E. chaffeensis Comment Influenza Type A (PCR) (Neg) Influenza Type B (PCR) (Neg) RSV (RT-PCR) (Neg) 10/15/22 10/15/22 10/15/22 Range/Units 12:41 12:40 08:31 WBC (4.8-10.8) K/ul RBC (4.70-6.10) M/uL Hgb (14.0-18.0) g/dl Hct (42.0-52.0) % MCV (80.0-100.0) fL MCH (25.0-34.0) pg MCHC (32.0-36.0) g/dL RDW Std Deviation (36.4-46.3) fL RDW Coeff of Fran (11.5-14.5) % Plt Count (130-400) K/uL MPV (9.4-12.4) fL Sodium (136-145) mmol/L Potassium (3.5-5.1) mmol/L Chloride (98-107) mmol/L Carbon Dioxide (21-32) mmol/L Anion Gap (3-11) BUN (6-23) mg/dl Creatinine (0.6-1.4) mg/dl Est Cr Clr Drug Dosing ml/min Est GFR ( Amer) ml/min Est GFR (Non-Af Amer) ml/min BUN/Creatinine Ratio (10-20) Glucose (70-99(Fasting)) mg/dl Estimat Average Glucose mg/dl Hemoglobin A1c (4.5-5.6) % Calcium (8.6-10.3) mg/dl Iron (35-175) mcg/dl Transferrin (200-360) mg/dl Ferritin (8-388) ng/ml Total Creatine Kinase (30-223) U/L Triglycerides (0-150) mg/dl Cholesterol (0-200) mg/dl LDL Cholesterol, Calc mg/dl VLDL Cholesterol, Calc (0-30) mg/dl HDL Cholesterol mg/dl Cholesterol/HDL Ratio (0-5) Vitamin B12 (180-914) pg/ml Folate (>5.38) ng/ml TSH (0.300-4.500) uIu/ml Urine Color Yellow Urine Appearance Clear (Clear) Urine pH 6.5 (4.5-7.5) Ur Specific [place] 1.024 (1.000-1.030) Urine Protein Negative (Negative) Urine Glucose (UA) Negative (Negative) Urine Ketones Trace H (Negative) Urine Blood Negative (Negative) Urine Nitrite Negative (Negative) Urine Bilirubin Negative (Negative) Urine Urobilinogen Negative (Negative) Ur Leukocyte Esterase Negative (Negative) Digoxin (0.8-2.0) ng/ml Salicylates < 3.0 L (3.0-30) mg/dl Urine Opiates Screen (Neg) Ur Methadone, Qual (Neg) Acetaminophen < 3 L (10-30) ug/ml Urine Barbiturates (Neg) Ur Phencyclidine (PCP) (Neg) U Amphetamin/Meth Scrn (Neg) MDMA (Ecstasy) Screen (Neg) U Benzodiazepines Scrn (Neg) Ur Cocaine Metabolite (Neg) U Marijuana (THC) Screen (Neg) U Marijuana THC Carboxy Drug Screen Comment Anaplasma Smear A. phagocytophilum DNA Lyme Disease IgG Ab (Negative) Lyme IgG (Western Blot) Lyme IgG 18 kDa Band Lyme IgG 23 kDa Band Lyme IgG 28 kDa Band Lyme IgG 30 kDa Band Lyme IgG 39 kDa Band Lyme IgG 41 kDa Band Lyme IgG 45 kDa Band Lyme IgG 58 kDa Band Lyme IgG 66 kDa Band Lyme IgG 93 kDa Band Lyme IgM Ab (WB) Lyme Disease IgM Ab (Negative) Lyme IgM 23 kDa Band Lyme IgM 39 kDa Band Lyme IgM 41 kDa Band SARS-CoV-2 (PCR) NEGATIVE (Negative) E. chaffeensis IgG Ab E. chaffeensis IgM Ab E. chaffeensis Interp E. chaffeensis Comment Influenza Type A (PCR) Negative (Neg) Influenza Type B (PCR) Negative (Neg) RSV (RT-PCR) Negative (Neg) 10/15/22 10/15/22 Range/Units 08:31 08:31 WBC (4.8-10.8) K/ul RBC (4.70-6.10) M/uL Hgb (14.0-18.0) g/dl Hct (42.0-52.0) % MCV (80.0-100.0) fL MCH (25.0-34.0) pg MCHC (32.0-36.0) g/dL RDW Std Deviation (36.4-46.3) fL RDW Coeff of Fran (11.5-14.5) % Plt Count (130-400) K/uL MPV (9.4-12.4) fL Sodium (136-145) mmol/L Potassium (3.5-5.1) mmol/L Chloride (98-107) mmol/L Carbon Dioxide (21-32) mmol/L Anion Gap (3-11) BUN (6-23) mg/dl Creatinine (0.6-1.4) mg/dl Est Cr Clr Drug Dosing ml/min Est GFR ( Amer) ml/min Est GFR (Non-Af Amer) ml/min BUN/Creatinine Ratio (10-20) Glucose (70-99(Fasting)) mg/dl Estimat Average Glucose mg/dl Hemoglobin A1c (4.5-5.6) % Calcium (8.6-10.3) mg/dl Iron (35-175) mcg/dl Transferrin (200-360) mg/dl Ferritin (8-388) ng/ml Total Creatine Kinase 122 (30-223) U/L Triglycerides (0-150) mg/dl Cholesterol (0-200) mg/dl LDL Cholesterol, Calc mg/dl VLDL Cholesterol, Calc (0-30) mg/dl HDL Cholesterol mg/dl Cholesterol/HDL Ratio (0-5) Vitamin B12 (180-914) pg/ml Folate (>5.38) ng/ml TSH 1.483 (0.300-4.500) uIu/ml Urine Color Urine Appearance (Clear) Urine pH (4.5-7.5) Ur Specific [place] (1.000-1.030) Urine Protein (Negative) Urine Glucose (UA) (Negative) Urine Ketones (Negative) Urine Blood (Negative) Urine Nitrite (Negative) Urine Bilirubin (Negative) Urine Urobilinogen (Negative) Ur Leukocyte Esterase (Negative) Digoxin (0.8-2.0) ng/ml Salicylates (3.0-30) mg/dl Urine Opiates Screen (Neg) Ur Methadone, Qual (Neg) Acetaminophen (10-30) ug/ml Urine Barbiturates (Neg) Ur Phencyclidine (PCP) (Neg) U Amphetamin/Meth Scrn (Neg) MDMA (Ecstasy) Screen (Neg) U Benzodiazepines Scrn (Neg) Ur Cocaine Metabolite (Neg) U Marijuana (THC) Screen (Neg) U Marijuana THC Carboxy Drug Screen Comment Anaplasma Smear A. phagocytophilum DNA Lyme Disease IgG Ab (Negative) Lyme IgG (Western Blot) Lyme IgG 18 kDa Band Lyme IgG 23 kDa Band Lyme IgG 28 kDa Band Lyme IgG 30 kDa Band Lyme IgG 39 kDa Band Lyme IgG 41 kDa Band Lyme IgG 45 kDa Band Lyme IgG 58 kDa Band Lyme IgG 66 kDa Band Lyme IgG 93 kDa Band Lyme IgM Ab (WB) Lyme Disease IgM Ab (Negative) Lyme IgM 23 kDa Band Lyme IgM 39 kDa Band Lyme IgM 41 kDa Band SARS-CoV-2 (PCR) (Negative) E. chaffeensis IgG Ab E. chaffeensis IgM Ab E. chaffeensis Interp E. chaffeensis Comment Influenza Type A (PCR) (Neg) Influenza Type B (PCR) (Neg) RSV (RT-PCR) (Neg) Medications Administered Current Inpatient Medications Acetaminophen (Acetaminophen 325 Mg Tab) 650 mg PO Q4H PRN PRN Reason: Pain or Fever Stop: 11/14/22 23:05 Apixaban (Apixaban 5 Mg Tablet) 5 mg PO BID [facility] Stop: 11/14/22 23:05 Last Admin: 10/16/22 07:56 Dose: 5 mg Aspirin (Aspirin 81 Mg Ectab) 81 mg PO QPM [facility] Stop: 11/14/22 23:05 Last Admin: 10/15/22 23:41 Dose: 81 mg Digoxin (Digoxin 0.25 Mg Tab) 0.25 mg PO DAILY@1600 [facility] Stop: 11/14/22 23:05 Last Admin: 10/15/22 23:36 Dose: Not Given Finasteride (Finasteride 5 Mg Tab) 5 mg PO HS [facility] Stop: 11/14/22 23:05 Last Admin: 10/15/22 23:41 Dose: 5 mg Levothyroxine Sodium (Levothyroxine Sodium 112 Mcg Tablet) 112 mcg PO DAILYBB [facility] Stop: 11/15/22 06:29 Last Admin: 10/16/22 06:26 Dose: 112 mcg Losartan Potassium (Losartan Potassium 50 Mg Tab) 100 mg PO QAM [facility] Stop: 11/15/22 08:59 Last Admin: 10/16/22 07:56 Dose: 100 mg Miscellaneous Information (Pharmacist Discharge Med Rec Consult) 1 each N/A UD PRN PRN Reason: Consult Stop: 11/14/22 23:05 Ondansetron HCl (Ondansetron Inj 2 Mg/Ml 2 Ml Vial) 4 mg IV Q6H PRN PRN Reason: Nausea Stop: 11/14/22 23:05 Polyethylene Glycol (Polyethylene (Miralax) 17 Gm Pack) 17 gm PO DAILY PRN PRN Reason: Constipation Stop: 11/14/22 23:05 Rosuvastatin Calcium (Rosuvastatin Calcium 20 Mg Tab) 20 mg PO HS [facility] Stop: 11/14/22 23:05 Last Admin: 10/15/22 23:41 Dose: 20 mg (5) Hypertension Hypertension type: unspecified Qualified Code(s): I10 - Essential (primary) hypertension
--- NOTE | 2022-10-16 11:27 | Electrocardiogram Report ---
Test Reason : Blood Pressure : / mmHG Vent. Rate : 049 BPM Atrial Rate : 058 BPM P-R Int : 000 ms QRS Dur : 106 ms QT Int : 456 ms P-R-T Axes : 000 052 058 degrees QTc Int : 411 ms Atrial fibrillation with slow ventricular response Abnormal ECG When compared with ECG of 15-OCT-2022 08:07, No significant change was found Confirmed by Michael Morales ([id number]) on 10/16/2022 11:27:00 AM Referred By: REFERRED SELF Confirmed By:Michael Morales
--- NOTE | 2022-10-16 11:56 | Neurology Consultation ---
Date of Consultation October 16, 2022 Assessment & Plan (1) Aprosodic speech: (2) Stenosis of right middle cerebral artery: (3) AMS (altered mental status): Plan 81-year-old right-handed male presenting with a resolved episode of altered mental status, likely due to recent initiation of medical marijuana. This patient does, however, have fairly significant aprosodic speech (lacking normal tonality and rhythmicity). This type of abnormal speech pattern localizes to the right cerebral hemisphere, right MCA territory, and is different from a more typical aphasia that would localize to the left cerebral hemisphere/left MCA territory. 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 He does not have a significant vascular lesion of the carotid vessels in the neck. I suspect his aprosodic speech pattern, which has been persistent, but with episodes of intermittent worsening, is related to impaired cerebral perfusion to the right MCA territory. I do note that there is no evidence of acute or subacute infarct in this vascular territory on recent and previous brain MRIs done at [facility] going back to 2018. 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 It may be worthwhile to pursue an outpatient CT or MR perfusion scan to further assess his cerebral perfusion in the context of the above right MCA stenosis. In selected cases, stenting can be completed although this treatment is not standard. Conventional management consists of statin and antiplatelet therapy. He should continue with rosuvastatin at the current dosage, his calculated LDL is 39 which is appropriate (goal LDL less than 70). Would consider switching from aspirin 81 mg/day, to clopidogrel 75 mg/day. Patient is also on Eliquis in light of his history of atrial fibrillation, he should continue with this medication. Dual antiplatelet therapy could be considered, however, I think the bleeding risk would outweigh the benefit in this patient as he is also anticoagulated. Long-term blood pressure management guidelines would suggest maintaining a blood pressure of less than 130 over 80 mmHg. However, in this patient's case, it may be best to allow for a slightly higher blood pressure, around 140/80 mmHg to avoid worsening low perfusion to the right MCA territory. An outpatient consultation with a stroke specialist at [facility] for consideration of CT or MR perfusion scanning and additional potential treatment options, such as MCA stenting (again, not standard, but could be considered on a qdcn-lo-ghin basis) should be made. I also considered the possibility that this patient's aprosodic speech could be due to a frontotemporal dementia variant. If this is the case, however, I would expect continued progression/deterioration in his speech with later development of other cognitive deficits. In that context, it may be worthwhile to pursue outpatient formal neuropsychological testing. History of Present Illness Reason for Consultation: altered mental status Requesting Physician: Marsha Attending Physician: Thomas Smith MD History of Present Illness The patient is an 81-year-old right-handed male who presented to the emergency department yesterday morning for altered mental status. He had awoken from sleep yesterday morning, was unable to stand, he seemed fatigued and exhibited slow speech. Prior to going to bed that night he had just started medical marijuana. He has been exhibiting episodic slow aprosodic speech for the past 5 years and has had several evaluations at [facility] for TIA. Over time, his speech has become more persistently slow and aprosodic (lacking in normal tonality and rhythmicity). He does have a known high-grade stenosis in the mid M1 segment of the right middle cerebral artery and moderate foci of narrowing in the proximal M2 segment on CT angiography of the head and neck, last study done in August 2021. No significant carotid disease within the neck. History also notable for atrial fibrillation, on Eliquis. He also takes aspirin 81 mg/day and rosuvastatin. A CT of the head completed yesterday was negative for hemorrhage or acute process. A brain MRI completed yesterday was negative for acute or subacute infarct or other acute process. There is generalized atrophy and chronic small vessel ischemic disease. I did independently review these images. There is no focal atrophy pattern. The patient continues to exhibit sl ow aprosodic speech. He is not aphasic. He does not report experiencing any hemiparesis or focal weakness. He denies headache or vision loss. Allergies Allergy/AdvReac Type Severity Reaction Status Date / Time alfuzosin AdvReac Intermediate DIZZINESS/W Verified 10/15/22 10:24 EAKNESS Home Medications Medication Instructions Recorded Confirmed Type acetaminophen 500 mg tablet 1,000 mg PO Q6H PRN Pain 09/11/18 10/15/22 History aspirin 81 mg tablet,delayed 81 mg PO QPM 09/11/18 10/15/22 History release digoxin 250 mcg (0.25 mg) tablet 250 mcg PO HS 09/11/18 10/15/22 History rosuvastatin 20 mg tablet 20 mg PO HS 09/11/18 10/15/22 History finasteride 5 mg tablet 5 mg PO HS 08/03/19 10/15/22 History amoxicillin 500 mg capsule 2,000 mg PO DIRECTED PRN 1 HOUR 08/11/21 10/15/22 History PRIOR TO DENTAL APPT. levothyroxine 112 mcg tablet 112 mcg PO DAILYBB 08/11/21 10/15/22 History apixaban 5 mg tablet (Eliquis) 5 mg PO BID 10/15/22 10/15/22 History losartan 100 mg tablet 100 mg PO QAM 10/15/22 10/15/22 History Patient History Medical History Atrial fibrillation BPH (benign prostatic hyperplasia) Cerebrovascular disease "history TIA's" CKD (chronic kidney disease), stage II Dyslipidemia Hiatal hernia Hypertension Hypothyroidism Stroke-like symptom Surgical History H/O vasectomy History of bilateral knee replacement "Dr. Mayer 2011 and 2013" History of inguinal hernia repair Family History Other Hypertension Stroke Social History Smoking Status: Unknown if ever smoked Second Hand Exposure: No; Do You Dip or Chew Tobacco: No; Hx Alcohol Use: No (unable to assess) Hx Substance Use: Yes (Medical card) Preferred Language: Tongan Communication Ability: Impaired Communication Ability Comment: cognition [place] [employer] Required: No Beliefs That Will Affect Care: None Current Living Situation: Spouse Current Living Situation Comment: lives with a woman, not Other Information That Helps Us Care for You: No Feels Safe at Home: Yes Safety Concerns: Feels Safe At This Time Assistive Devices: None Review of Systems Constitutional: no fever and no chills Eyes: no blind spots and no diplopia Ear, Nose, Mouth, Throat: + hearing loss Respiratory: no cough and no dyspnea Cardiovascular: no chest pain and no palpitations Gastrointestinal: no nausea and no vomiting Genitourinary: no dysuria or no urinary incontinence Musculoskeletal: + back pain Integumentary: no rash and no lesions Neurologic: as per Subjective / HPI; no localized weakness, no loss of sens ation, no tremor(s) and no headache(s) Psychiatric: no depression and no anxiety Hematologic / Lymphatic: no easy bleeding and no easy bruising Exam (Neuro) Constitutional: well developed; no acute distress Eyes: normal visual cramer by confrontation, PERRL and EOM intact bilaterally Neurologic: Oriented to:: Person, Place and Time Memory: Short Term Intact and Remote Intact Attention: Span Intact and Concentration Intact Language: Naming Objects and Repeating Phrases Speech Fluency: Slowed and Other (aprosodic speech lacking in normal tonality and rhythm); negative Dysarthria Speech Aphasia: negative Aphasia Fund of Knowledge: Current Events, Past History and Vocabulary Cranial Nerves: Normal II, III, IV, , V, VII, IX, X, XI and XII; Abnorm VIII (R>L) Motor Strength: Normal Lower Extremities and Normal Upper Extremities; negative Hemiparesis Motor Tone: Normal Lower Extremities and Normal Upper Extremities Muscle Bulk/Involuntary Movements: No Involuntary Movements; negative Muscle Atrophy Sensation: Light Touch Intact, Pain/Temperature Intact and Proprioception Intact Coordination: Normal; negative Dysdiadochokinesia, Finger-Nose Abnormal or Heel-Byers Abnormal Deep Tendon Reflexes: Rt Triceps: 2+, Lt Triceps: 2+, Rt Biceps: 2+, Lt Biceps: 2+, Rt Brachioradialis: 2+, Lt Brachioradialis: 2+, Rt Patellar: 2+, Lt Patellar: 2+, Rt Ankle: 1+ and Lt Ankle: 1+ Special Tests: negative Babinski Present Details: Gait not tested Results & Data Vital Signs (Past 12 Hours) Vital Signs Temp Pulse Pulse Resp BP Pulse Ox O2 Del Method 10/16/22 09:21 60 10/16/22 07:40 36.5 C 53 L 20 159/79 H 95 Room Air 10/16/22 03:03 36.6 C 73 18 127/73 94 Room Air 10/15/22 23:58 36.8 C 68 14 147/75 H 97 Room Air Laboratory Results WBC 5.20, hemoglobin 11.2, hematocrit 34.2, platelet count 150, sodium 141, potassium 4.6, BUN 20, creatinine 1.17, glucose 93, hemoglobin A1c 5.7, calcium 8.9, magnesium 2.0, AST 19, ALT 13, total CK1 22, high-sensitivity troponin 16.3, triglycerides 61, cholesterol 88, LDL 39, VLDL 12, HDL 37, vitamin B12 307, folate 10.69, TSH 1.43, urine toxicology screen positive for THC, ethyl alcohol level less than 10.0, Lyme IgG antibody positive, IgM antibody negative, Western blot pending. Diagnostic Findings CT of the head, brain MRI, and previous CTA of the head and neck are as described in the HPI. Electrocardiogram reveals atrial fibrillation with slow ventricular response. A previous echocardiogram, completed in September 2018 revealed moderate concentric LVH, EF 55 to 60%, no segmental left ventricular wall motion abnormalities, mild aortic valve sclerosis, without stenosis, moderate left atrial enlargement, severe right atrial enlargement, atrial septum intact without ASD, no shunt with injection of contrast. I see that there was evidence of a punctate infarct within the posterior right frontal lobe on a brain MRI done at [facility] in July 2017. I did independently review these images. Subsequent brain MRIs done in September 2018, in August 2021 were negative for acute infarct. An EEG completed at [facility] August 12, 2021 revealed mild generalized background slowing potentially consistent with a mild nonspecific encephalopathy at that time, no epileptiform abnormalities. PG Care Time/CCT Total # of Minutes Spent Total Time Spent with Patient: Total time spent is greater than 50% in coordination of care (as documented) at patient's floor/unit and/or counseling patient: 80 min Coding Level of Care Code 95038 INT INP/OBS CARE 3/75MIN Diagnoses Aprosodic speech R47.89 Stenosis of right middle cerebral artery I66.01 AMS (altered mental status) R41.82
[2022-10-16] MEDS: DIGOXIN 0.25 MG TAB PO SCH (15:17)
[2022-10-16] MEDS ORDERED: STROKE PATIENT DISCHARGE STA (15:27)
[2022-10-16] MEDS ORDERED: CLOPIDOGREL BISULFATE 75 MG TAB PO SCH (15:30)
--- NOTE | 2022-10-16 15:49 | Discharge Summary ---
Date of Service October 16, 2022 Admission HPI Per Admitting Provider Patient is a 81-year-old male with PMH atrial fibrillation anticoagulated on Eliquis, history of episodes of expressive aphasia, possible TIA in the past, HTN, HLD, BPH, hypothyroidism presented to ER with complaint of altered mental status this morning. History obtained from patient, patient's significant other as well as inpatient and outpatient chart review. Patient states 2 days ago started medical marijuana that he is using sublingually once a day. He states 2 days ago used for the first time and last night used for the second time. He used prior to going to bed. He states usually prior to following sleep he reads however last night was unable to read more than a few words and then just went to sleep. Significant other states when they awoke this morning she found significant other with his legs hanging out of the bed. And he seemed very fatigued and was unable to stand up out of bed. There was no fall. Significant states patient with slow speech at baseline however this morning noted that patient had severely slowed speech and was not really talking. While here in ER patient noted to be more alert however is still sleepy and is more conversant now with speech slower than his baseline. Denies any noted facial drooping. Patient also states past 2 days has had intermittent nonproductive cough. 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 Patient states 3 months ago had tick crawling on him that was not embedded yet. Denies any other known tick bites. Drinks 1-2 beers daily. Last night had 2 beers. He denies other recreational drug use. Significant other is concerned about possible underlying depression. She states patient been napping denies fever/chills, diaphoresis, N/V/D/C, HAGAN, dizziness, syncope, vision changes, neck pain, CP, SOB, palpitations, hemoptysis, sore throat, choking, otalgia, rhinorrhea, abdominal pain, paresthesias, extremity edema, rashes, urinary symptoms. Reports multiple episodes in past of expressive aphasia that lasted approxim ately 1 hour and self resolved. Prior brain MRIs have been negative Per outpatient chart review patient was [place] of [place] when he had an episode of dysarthria and at that time his warfarin was discontinued and apixaban was started. He had another episode of dysarthria while traveling in [place] in 02/2022 and is reported that patient had negative MRI brain and normal EEG at that time. Was readmitted in 02/2022 at [facility] neurology thought episodes were likely not TIAs but possible focal seizures and Keppra was started. Patient seen again at [facility] in 03/2022 due to excessive fatigue that was thought secondary to Keppra and Keppra was discontinued. Followed with local neurologist, Dr. Echols who also feels these episodes are likely not TIAs. He had noted slowed speech. Outpatient chart review: 03/10/2022: CT head: No visible acute infarct. Mild chronic small vessel ischemic changes and diffuse prequel volume loss. No parenchymal hemorrhage, midline shift, hydrocephalus, or abnormal extra-axial collection. No skull fracture. 03/10/2022: CTA head: No stenosis or occlusion of the bilateral internal carotid arteries or anterior cerebral arteries. No stenosis or occlusion of the left middle cerebral artery. Moderate focus stenosis of mid segment of right M1 spanning approximately 2 mm in length. No stenosis or occlusion of posterior circulation. History CTA neck 03/10/2022: 9 aneurysmal thoracic aortic arch. Origins of the great vessels are widely patent. Mild atherosclerotic calcification of bilateral carotid bulbs. No stenosis or occlusion of the common carotid or cervical internal carotid arteries bilaterally. No evidence of dissection. Dominant left vertebral artery with diminutive right vertebral artery. No stenosis or occlusion of either vertebral artery. No evidence of dissection. Admission Exam Per Admitting Provider General: +lethargic appearing, no acute distress, WDWN Head: normocephalic, atraumatic Eyes: PERRL, EOM's intact, conjunctiva non-injected, anicteric ENT: normal inspection external ears, nose, mucous membranes dry Neck: supple, trachea midline Lungs: clear, no respiratory distress, no wheezing/rhonchi/rales CV: irregularly irregular, rate 64, trace bilateral pretibial edema Abd: normal BS, soft, non-tender Ext: no cyanosis, no calf tenderness Neuro: +lethargic appearing, +drowsy, awakens to voice, oriented x 3. +slow speech but without slurring. no nystagmus, facial sensation is intact and symmetric, face is strong and symmetric, hearing grossly intact, soft palate elevates symmetrically, shoulder shrug intact, tongue is midline, normal movement, no fasciculations. Strength 5/5 throughout. normal affect Skin: warm, dry Principal Diagnosis Altered mental status, likely due to recent initiation of medical marijuana Discharge Exam General: WDWN M in NAD Head: normocephalic, atraumatic Eyes: PERRL, EOM's intact, conjunctiva non-injected, anicteric ENT: normal inspection external ears, nose Neck: supple, trachea midline Lungs: clear, no respiratory distress, no wheezing/rhonchi/rales CV: irregularly irregular Abd: normal BS, soft, non-tender Ext: moves extremities Neuro: Awake and alert, answers appropriately, +slow speech but without slurring. No facial asymmetry, moves extremities, no weakness Skin: warm, dry Discharge Data Allergies Allergy/AdvReac Type Severity Reaction Status Date / Time alfuzosin AdvReac Intermediate DIZZINESS/W Verified 10/15/22 10:24 EAKNESS Consultations 10/15/22 12:58 ED Decision to Admit Stat 10/15/22 23:06 Consult Neurology Routine Ordered Studies 10/15/22 08:20 CT head/brain wo con Stat Findings: The paranasal sinuses and mastoid air cells are clear. The calvarium and skull base are intact. There is no mass, hematoma, midline shift, acute infarct. White matter hypodensity is nonspecific but suggestive of microvascular ischemic change. The ventricles and sulci demonstrate mild age-related involutional changes. Impression: No significant change compared to the prior study. No acute intracranial abnormality. 10/15/22 12:51 MR brain wo con Stat FINDINGS: No restricted diffusion. Midline structures are. There is no acute intracranial hemorrhage, midline shift, abnormal extra-axial collection, hydrocephalus or intra-axial mass. The lesional changes with moderate T2/FLAIR hyperintense foci throughout the white matter. Cerebral venous sinuses and major arterial flow voids are patent. Skull, orbits and soft tissues are unremarkable. Small bilateral mastoid effusions. IMPRESSION: 1. No acute intracranial abnormality. 2. No acute or subacute infarct. 3. Involutional changes with chronic microvascular ischemic disease. Hospital Course (1) AMS (altered mental status): Patient is a 81-year-old male with PMH atrial fibrillation anticoagulated on Eliquis, history of episodes of expressive aphasia, possible TIA in the past, HTN, HLD, BPH, hypothyroidism presented to ER with complaint of altered mental status this morning. In ER afebrile, vital stable CT head: No acute intracranial abnormality CXR: No acute infiltrate per my interpretation. Radiologist read as no acute disease UA not consistent with urinary tract infection. Negative alcohol, acetaminophen, salicylates Lyme IgG positive, has been positive in past also. Western blot is pending Peripheral smear not consistent with anaplasmosis, anaplasmosis, PCR pending Urine drug screen + Marijuana AMS may be secondary to underlying illness, substance use. DDX: TIA, CVA (History episodes expressive aphasia in past initially thought secondary to TIAs however neurologist thinks TIAs less likely and was diagnosed with functional neurologic speech disorder) During ER course patient becoming increasingly conversant however with continued slow speech MRI brain obtained - IMPRESSION: 1. No acute intracranial abnormality. 2. No acute or subacute infarct. 3. Involutional changes with chronic microvascular ischemic disease. Continue Eliquis, rosuvastatin - will switch asa to plavix (as discussed w/ neurology) PT/OT eval - ok to DC home Neurology consulted - per Dr. Alfaro - resolved episode of altered mental status, likely due to recent initiation of medical marijuana. This patient does, however, have fairly significant aprosodic speech (lacking normal tonality and rhythmicity). This type of abnormal speech pattern localizes to the right cerebral hemisphere, right MCA territory, and is different from a more typical aphasia that would localize to the left cerebral hemisphere/left MCA territory. 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 He does not have a significant vascular lesion of the carotid vessels in the neck. I suspect his aprosodic speech pattern, which has been persistent, but with episodes of intermittent worsening, is related to impaired cerebral perfusion to the right MCA territory. I do note that there is no evidence of acute or subacute infarct in this vascular territory on recent and previous brain MRIs done at [facility] going back to 2018. 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 It may be worthwhile to pursue an outpatient CT or MR perfusion scan to further assess his cerebral perfusion in the context of the above right MCA stenosis. In selected cases, stenting can be completed although this treatment is not standard. Conventional management consists of statin and antiplatelet therapy. He should continue with rosuvastatin at the current dosage, his calculated LDL i s 39 which is appropriate (goal LDL less than 70). Would consider switching from aspirin 81 mg/day, to clopidogrel 75 mg/day. Patient is also on Eliquis in light of his history of atrial fibrillation, he should continue with this medication. Dual antiplatelet therapy could be considered, however, I think the bleeding risk would outweigh the benefit in this patient as he is also anticoagulated. Long-term blood pressure management guidelines would suggest maintaining a blood pressure of less than 130 over 80 mmHg. However, in this patient's case, it may be best to allow for a slightly higher blood pressure, around 140/80 mmHg to avoid worsening low perfusion to the right MCA territory. An outpatient consultation with a stroke specialist at [facility] for consideration of CT or MR perfusion scanning and additional potential treatment options, such as MCA stenting (again, not standard, but could be considered on a [id number] basis) should be made. I also considered the possibility that this patient's aprosodic speech could be due to a frontotemporal dementia variant. If this is the case, however, I would expect continued progression/deterioration in his speech with later development of other cognitive deficits. In that context, it may be worthwhile to pursue outpatient formal neuropsychological testing. (2) Atrial fibrillation: Chronically anticoagulated on Eliquis EKG: Atrial fibrillation, rate 64, nonspecific ST changes that are similar to EKG on 04/23/2021 per my interpretation Digoxin level: 1.9 Continue Eliquis, digoxin (3) Anemia: H/H: . Hgb: 13.9 on 05/10/2022 Anemia labs, FOBT pending vit B12 307 - low normal - consider supplement folic acid 10 Follow up as outpt (4) Hyperglycemia: Random glucose: 147 A1c: 5.8 on 08/11/2022 Current A1c 5.7% (5) Hypertension: Continue losartan monitor BP (6) Dyslipidemia: Continue rosuvastatin (7) CKD (chronic kidney disease), stage II: Cr: 1.29. Baseline 1.2-1.3 Monitor renal functions (8) BPH (benign prostatic hyperplasia): Continue finasteride (9) Hypothyroidism: TSH: 1.4 Continue levothyroxine Total Time Total Time Spent Total Time Spent (In Minutes): 40 Discharge Plan Discharge Items Patient Disposition: Home - Self-Care Reason For Visit: AMS Discharge Diagnosis: Altered mental status, likely due to recent initiation of medical marijuana Activity: Per Instructions section Non-emergency contact: Primary Care Provider and Neurologist Call non-emergency contact if: you have any medication questions and your symptoms worsen Follow-up/Referrals: Uday Roche, DO [Primary Care Provider] - Diet: Heart Healthy Addtl Attending Provider Instructions: Follow up with your primary care provider and neurology. Recommend to follow up with primary care physician within 1 week. It is recommended that you start taking Plavix 75 mg daily instead of aspirin. Also recommend vit. B12 supplement. Pending Studies at Discharge: Yes Studies:: tick borne disease panel Stand-Alone Forms: My [employer], Smoking Cessation Medications and DC Order Prescriptions: New clopidogrel 75 mg Tablet 75 mg PO QAM Qty: 30 0RF cyanocobalamin (vitamin B-12) 500 mcg tablet 500 mcg PO DAILY Qty: 30 0RF Continued acetaminophen 500 mg Tablet 1,000 mg PO Q6H PRN (Reason: Pain) digoxin 250 mcg Tablet 250 mcg PO HS rosuvastatin 20 mg tablet 20 mg PO HS finasteride 5 mg Tablet 5 mg PO HS losartan 100 mg tablet 100 mg PO QAM Eliquis 5 mg tablet 5 mg PO BID amoxicillin 500 mg capsule 2,000 mg PO DIRECTED PRN (Reason: 1 HOUR PRIOR TO DENTAL APPT.) levothyroxine 112 mcg tablet 112 mcg PO DAILYBB Discontinued aspirin 81 mg Tablet,Delayed Release (Dr/Ec) 81 mg PO QPM Discharge Orders: Discharge Order (Routine); Ordered 10/16/22 Ordered By: Thomas Smith Admission Data Admit Date/Time: 10/15/22 13:24 Attending Provider: Thomas Smith Admit Provider: Sameera Wayne Primary Care Provider: Uday Roche Other Providers: Sameera Wayne ; Scar Alfaro
[2022-10-18 09:11] LABS: Marijuana Quant, GCMS Urine 2549 ng/mL (<5)
[2022-10-19 15:38] LABS: 18KDIGG Band NON-REACTIVE; 23KDIGG Band NON-REACTIVE; 23KDIGM Band NON-REACTIVE; 28KDIGG Band NON-REACTIVE; 30KDIGG Band NON-REACTIVE; 39KDIGG Band NON-REACTIVE; 39KDIGM Band NON-REACTIVE; 41KDIGG Band REACTIVE; 41KDIGM Band NON-REACTIVE; 45KDIGG Band NON-REACTIVE; 58KDIGG Band REACTIVE; 66KDIGG Band NON-REACTIVE; 93KDIGG Band NON-REACTIVE; Lyme Antibodies, WB IgG NEGATIVE (NEGATIVE); Lyme Antibodies, WB IgM NEGATIVE (NEGATIVE)
== END 2022-10-16 17:44 | disposition home or self-care (01) ==
LOC: ED 08:00 → EDINP 08:00 → SUATTDRO 13:24 → 2W 22:10